=== PATIENT | male | born 1935 | race Caucasian/White ===

== ENCOUNTER 2020-09-22 11:07 | Emergency (ER) | payer OTHER, MEDICARE ==
[~2020-09-22] VITALS: Ht 172.7 cm; Wt 87.3 kg
[2020-09-22] MEDS ORDERED: methylnaltrexone br 12mg/0.6ml inj***SubQ only SQ ONE (14:20)
[2020-09-22] MEDS ORDERED: bisacodyl 5mg tablet.DR PO ONE (14:20)
--- NOTE | 2020-09-22 15:48 | NUR ---
Note lorraine in EDM - 09/22/20 at 1846 by MONIQUE spoke with Dr. Behl. YOUNGER for duoNeb q6 hr PRN as needed.
[2020-09-22] MEDS ORDERED: albuterol 2.5 MG/3 ML nebule NEB PRN (15:50)
--- NOTE | 2020-09-22 16:40 | NUR ---
All medication given treated awaiting resultes. aware.
[2020-09-22 18:00] VITALS: BP 121/61
--- NOTE | 2020-09-22 18:46 | NUR ---
DIGITAL DISIMPACTION IN PROGRESS NOW WITH DR. WEST.
[2020-09-22] MEDS ORDERED: MAGN296S68 PO (19:01)
== END 2020-09-22 19:26 | disposition home or self-care (01) ==
LOC: ER 11:08
DX: K59.00 Constipation, unspecified (principal); R10.30 Lower abdominal pain, unspecified
CPT/HCPCS: 96372; 99284; J2212; 99283

== ENCOUNTER 2021-05-17 14:35 | Inpatient (IN) | payer OTHER, MEDICARE ==
[~2021-05-17] VITALS: Ht 177.8 cm; Wt 80.9 kg
[~2021-05-17 14:35] MED LIST: MAGN296S68 PO
[2021-05-17 19:13] LABS: HEMOGLOBIN 14.6 g/dl (14.0-17.9); MEAN CORPUSCULAR HEMOGLOBIN 31.9 PG (27.0-31.0); RED CELL DISTRIBUTION WIDTH 13.9 % (11.5-14.5)
[2021-05-17 19:14] LABS: BASOPHILS # (AUTO) 0.1 X10'3 (0-0.2); BASOPHILS % (AUTO) 0.3 % (0-1); EOSINOPHILS % (AUTO) 0 % (0-6); HEMATOCRIT 43.6 % (42.0-52.0); LYMPHOCYTES # (AUTO) 0.6 X10'3 (1.1-4.8); LYMPHOCYTES % (AUTO) 2.8 % (21-51); MEAN CORPUSCULAR HGB CONC 33.5 g/dL (33.0-36.5); MEAN CORPUSCULAR VOLUME 95.2 FL (78-98); MEAN PLATELET VOLUME 7.3 FL (7.4-10.4); MONOCYTES # (AUTO) 1.1 X10'3 (0-0.9); MONOCYTES % (AUTO) 5.4 % (2-12); NEUTROPHILS # (AUTO) 19.3 X10'3 (1.8-7.7); NEUTROPHILS % (AUTO) 91.5 % (42-75); PLATELET COUNT 212 X10'3 (140-440); RED BLOOD COUNT 4.58 X10'6 (4.70-6.10); WHITE BLOOD COUNT 21.1 X10'3 (4.5-11.0)
[2021-05-17 19:19] LABS: ALANINE AMINOTRANSFERASE 43 U/L (12-78); ALBUMIN 4.1 G/DL (3.4-5.0); ALBUMIN/GLOBULIN RATIO 1.1 (1.1-1.5); ALKALINE PHOSPHATASE 102 IU/L (46-116); ANION GAP 8 (8-16); ASPARTATE AMINO TRANSFERASE 20 U/L (10-37); BILIRUBIN,TOTAL 0.6 MG/DL (0.1-1.0); BLOOD UREA NITROGEN 20 MG/DL (7-18); BUN/CREATININE RATIO 17.5 (5.4-32.0); CALCIUM 9.6 MG/DL (8.5-10.1); CHLORIDE 102 MMOL/L (99-107); CREATININE 1.14 MG/DL (0.60-1.10); GLUCOSE 149 MG/DL (70-104); POTASSIUM 4.7 MMOL/L (3.5-5.1); SODIUM 142 MMOL/L (135-145); TOTAL CARBON DIOXIDE 32.5 MMOL/L (24-32); TOTAL PROTEIN 7.9 G/DL (6.4-8.2); eGFR 61 ML/MIN
[2021-05-17] MEDS ORDERED: CefTRIAXone 2gm/D5W 50ml BAG 50 ML IV ONE (19:45)
[2021-05-17] MEDS ORDERED: normal saline 1000ML IV soln IV ONE (19:45)
[2021-05-17 19:57] LABS: MAGNESIUM 2.1 MG/DL (1.5-2.4)
[2021-05-17 21:00] LABS: PLATELET ESTIMATE NORMAL; TOTAL CELLS COUNTED 100
[2021-05-17] MEDS ORDERED: temazepam 15mg capsule PO PRN (21:00)
[2021-05-17 21:27] LABS: CLARITY,URINE SLIGHTLY CLOUDY (Clear); COLOR,URINE YELLOW (Yellow); GLUCOSE, URINE NEGATIVE (Neg); KETONES,URINE 15 mg/dl (Neg); LEUKOCYTE ESTERASE ,URINE TRACE (Neg); NITRITES, URINE POSITIVE (Neg); OCCULT BLOOD,URINE NEGATIVE (Neg); PH,URINE 7.5 (4.8-8.0); PROTEIN,URINE TRACE mg/dl (Neg); UROBILINOGEN,URINE 0.2 E.U/dL (0.2-1.0)
[2021-05-17 21:36] LABS: UA COLLECTION TYPE NON-SPECIFIED
[2021-05-17 21:37] LABS: BACTERIA,URINE 3+ /HPF (Neg); RBC,URINE 0-2 /HPF (0-2); WBC,URINE 20-30 /HPF (0-4)
[2021-05-17 21:38] LABS: SQUAMOUS EPITHELIAL CELL,UR FEW /LPF (FEW)
[2021-05-17 21:42] LABS: CAL OXALATE CRYSTALS FEW /HPF (NEGATIVE)
[2021-05-17] MEDS ORDERED: HYDR-3965 PO (23:35)
[2021-05-17] MEDS ORDERED: diphenhydrAMINE 25mg capsule PO PRN (23:55)
[2021-05-17] MEDS ORDERED: morphine 2 MG/ML inj. syringe IV PRN (23:55)
[2021-05-17] MEDS ORDERED: acetaminophen 325mg tablet PO PRN (23:55)
[2021-05-17] MEDS ORDERED: ondansetron 4mg rapidly disintigrating tab PO PRN (23:55)
[2021-05-17] MEDS ORDERED: bisacodyl 10mg suppository rectal RC PRN (23:55)
[2021-05-17] MEDS ORDERED: magnesium hydroxide 30ml (MOM) UD suspension PO PRN (23:55)
[2021-05-17] MEDS ORDERED: ondansetron/PF 4mg/2ml inj IV PRN (23:55)
[2021-05-17] MEDS ORDERED: mag hydrox/Alum hydrox/simeth 30ml oral suspension PO PRN (23:55)
[2021-05-17] MEDS ORDERED: diphenhydrAMINE 50 mg/ml inj IV PRN (23:55)
[2021-05-18] VITALS (11 sets, daily range): BP systolic 68–120; BP diastolic 37–70
[2021-05-18] MEDS ORDERED: nitroGLYCERIN 0.4mg SUBLingual tab SL PRN
[2021-05-18] MEDS ORDERED: aminophylline 250mg/10ml inj. IV PRN
[2021-05-18] MEDS ORDERED: metoprolol tartrate 1mg/ml inj IV PRN
[2021-05-18] MEDS ORDERED: regadenoson 0.4mg/5ml syringe IV PRN
--- NOTE | 2021-05-18 00:18 | NUR ---
Received from OR via BED, accompanied by Anesthesiologist PHILLIP and report given by ANESTHESIA.RT PRESENT FOR SET UP OF VENTILATOR. ET TUBE MEASURES 26 AT LIPS. VSS. PIV IN L. WRIST 20 G. CDI SALINE LOCKED. PIV R. FA 18 G CDI WITH LR INFUSING-WHICH WAS DC AND SALINE LOCKED. R. ART LINE CDI, SECURE AND ZEROED. TRIPLE LUMEN CVP AT R. NECK CDI. FC DRAINING TO GRAVITY APPROX 500 ML DARK YELLOW URINE NOTED. L. ESOPHAGEAL PLUG AT UPPER L. CLAVICLE WITH OUTPUT BAG ATTACHED. NO CONTENTS ON ARRIVAL. RED MONTE TUBE FOR FEEDING IN L. ABD. 19 FR. YANET DRAIN IN ABD. WITH MINIMAL DRAINAGE NOTED. CDI. DUAL LUMEN CHEST TUBE FUNCTIONING APPROPRIATELY ORDERED. APPROX. 200 ML DRAINAGE NOTED. DRESSING ON R. LATERAL ABD CDI. BG 208. SEDATION SET UP AND ADMINISTERED PER ORDERS. RESTRAINTS APPLIED. PALPABLE PULSES NOTED. SCDS IN PLACE. RN PRESENT FOR REPORT. ABG'S ABG'S AND LABS DRAWN. CXR DONE IN OR PRIOR TO TRANSFER. PT. APPEARS TO BE COMFORTABLY SEDATED. Addendum: 05/19/21 at 0739 by Jacquelin Galvan RN Amended: Links added.
[2021-05-18] MEDS: heparin, porcine 5000 units/ml vial SQ SCH ×2 (00:39→08:04)
[2021-05-18] MEDS: normal saline 1000ml 1,000 ML IV SCH ×2 (00:40→09:55)
[2021-05-18] MEDS: HYDROcodone/acetaminophen 10/325mg tab PO PRN (00:40)
--- NOTE | 2021-05-18 00:58 | NUR ---
DC CRITERIA MET FOR TRANSFER TO ICU. RN PRESENT FOR REPORTS AND CARE. PT. RESTING COMFORTABLY, APPROPRIATELY SEDATED AND RESTRAINED. VSS. ALL LINES AND DRAINS FUNCTIONING ORDERED. ALL QUESTIONS ANSWERED FOR RN. ALL POST SURGICAL INITIAL ORDERS COMPLETED, CXR, ABG, LABS. SEE RT NOTES FOR VENT SETTINGS. Addendum: 05/19/21 at 0743 by Jacquelin Galvan RN Amended: Links added.
[2021-05-18 01:05] LABS: BASOPHILS % (AUTO) 0.2 % (0-1); EOSINOPHILS % (AUTO) 0 % (0-6); HEMATOCRIT 39.1 % (42.0-52.0); HEMOGLOBIN 13.2 g/dl (14.0-17.9); LYMPHOCYTES # (AUTO) 0.9 X10'3 (1.1-4.8); LYMPHOCYTES % (AUTO) 4.4 % (21-51); MEAN CORPUSCULAR HEMOGLOBIN 31.7 PG (27.0-31.0); MEAN CORPUSCULAR HGB CONC 33.8 g/dL (33.0-36.5); MEAN CORPUSCULAR VOLUME 93.6 FL (78-98); MEAN PLATELET VOLUME 7.5 FL (7.4-10.4); MONOCYTES # (AUTO) 0.8 X10'3 (0-0.9); MONOCYTES % (AUTO) 4.2 % (2-12); NEUTROPHILS # (AUTO) 18.3 X10'3 (1.8-7.7); NEUTROPHILS % (AUTO) 91.2 % (42-75); PLATELET COUNT 198 X10'3 (140-440); RED BLOOD COUNT 4.17 X10'6 (4.70-6.10); RED CELL DISTRIBUTION WIDTH 13.7 % (11.5-14.5); WHITE BLOOD COUNT 20.1 X10'3 (4.5-11.0)
[2021-05-18 01:11] LABS: APTT 27 SECONDS (22-32); D-DIMER 3.28 MG/L FEU (0-0.50)
[2021-05-18 01:18] LABS: HEMOGLOBIN A1C 5.8 % (4.5-6.2)
[2021-05-18 01:21] LABS: ALANINE AMINOTRANSFERASE 26 U/L (12-78); ALBUMIN 3.3 G/DL (3.4-5.0); ALKALINE PHOSPHATASE 78 IU/L (46-116); ANION GAP 7 (8-16); ASPARTATE AMINO TRANSFERASE 20 U/L (10-37); BILIRUBIN,TOTAL 0.7 MG/DL (0.1-1.0); BLOOD UREA NITROGEN 19 MG/DL (7-18); BUN/CREATININE RATIO 19.4 (5.4-32.0); CALCIUM 8.9 MG/DL (8.5-10.1); CHLORIDE 105 MMOL/L (99-107); CREATININE 0.98 MG/DL (0.60-1.10); GLUCOSE 147 MG/DL (70-104); POTASSIUM 4.2 MMOL/L (3.5-5.1); SODIUM 141 MMOL/L (135-145); TOTAL CARBON DIOXIDE 28.8 MMOL/L (24-32); TOTAL PROTEIN 6.6 G/DL (6.4-8.2); eGFR 73 ML/MIN
[2021-05-18 01:30] LABS: CHOL/HDL RATIO 1.3 (0.00-4.99); CHOLESTEROL 98 MG/DL (0-200); HDL CHOLESTEROL 74 MG/DL (35-60); LDL CHOLESTEROL 18 MG/DL (50-100); MAGNESIUM 2.1 MG/DL (1.5-2.4); TRIGLYCERIDES 35 MG/DL (20-135)
[2021-05-18] MEDS ORDERED: ROPI1TAB6 PO (02:07)
[2021-05-18] MEDS ORDERED: CYCL-394 PO (02:08)
[2021-05-18] MEDS ORDERED: GABA300C PO (02:10)
[2021-05-18] MEDS ORDERED: GABA-530 PO (02:10)
[2021-05-18] MEDS ORDERED: pantoprazole 40mg Tablet.DR PO SCH (07:30)
[2021-05-18] MEDS: CefTRIAXone/D5W-Rocephin 1gm 50 ML IV SCH (08:00)
[2021-05-18] MEDS ORDERED: aspirin 81mg, enteric-coated 1 TAB TABLET.DR PO SCH (08:00)
[2021-05-18] MEDS: docusate sod 100mg capsule PO SCH ×2 (08:00→20:00)
[2021-05-18] MEDS: nitroGLYCERIN 0.1mg/hour patch TD SCH (08:00)
[2021-05-18] MEDS: metoprolol succinate 25mg (24-HOUR) SR. Tablet PO SCH (08:05)
[2021-05-18] MEDS: atorvastatin 20mg tablet PO SCH (08:05)
[2021-05-18] MEDS: lisinopril 5mg tablet PO SCH (08:06)
[2021-05-18] MEDS ORDERED: magnesium 4gm in 100ml NS 100 ML IV PRN (09:05)
[2021-05-18] MEDS ORDERED: magnesium Cl slow-release 64mg tablet PO PRN (09:05)
[2021-05-18] MEDS ORDERED: potassium Cl 40MEQ/1/2NS 520ml 520 ML IV PRN (09:05)
[2021-05-18] MEDS ORDERED: potassium Cl 20 mEq SR tablet PO PRN ×2 (09:05)
[2021-05-18] MEDS ORDERED: iohexol 350MG/ML 100ml bottle IV ONE (10:18)
--- NOTE | 2021-05-18 12:51 | NUR ---
Page Sent promotional table spacer PAGER ID: [phone] MESSAGE: DR. Juanjose Ramsey [id number] [facility] need you communicate with them , for report critical findings. MARCELINO Anderson
[2021-05-18] MEDS: ROPINIRole 1mg tablet PO SCH ×2 (14:00→20:00)
--- NOTE | 2021-05-18 14:21 | NUR ---
Initial: Pt admit DX sepsis, UTI, CP rule out ACS, acute hypoxia, and hypovolemia per MD note. PT s/p CTA chest/abdomen/pelvis found to have upper medial gastric fundal wall perforation leaking into the lower paraesophageal mediastinum and immediate medial perigastric soft tissues per imaging report. Pt PO 100% clear liquid first meal at breakfast though likely NPO pending surgery holding room note at this time in EMR. LBM 05/15 w/ hx constipation and routine colace active in EMR. Will continue to monitor for further information and additional nutrition intervention needs this admit. Rec: 1. once PO; advance diet as medically indicated to regular. IF GI surgery advance to low-residue diet as medically indicated 2. monitor for ONS needs pending PO/diet advancement 3. routine bowel care; hx constipation 4. scaled wt this admit; subsequent weekly wts Addendum: 05/18/21 at [address] Amended: Links added.
--- NOTE | 2021-05-18 14:30 | NUR ---
Patient was report to Recovery. I was spoke with MARCELINO Plaza
--- NOTE | 2021-05-18 15:33 | NUR ---
Patient is transferred to operation room.
[2021-05-18] MEDS ORDERED: fentaNYL /PF 50mcg/ml 5ml ampule ONE ×2 (15:49→18:54)
[2021-05-18] MEDS ORDERED: midazolam 1 mg/ML 2ml injection ONE (15:49)
[2021-05-18] MEDS: cyclobenzaprine 10mg tablet PO SCH (16:00)
[2021-05-18] MEDS ORDERED: propofol inj 20 ML IV ONE (16:08)
[2021-05-18] MEDS ORDERED: LIDOcaine 2% (20mg/ml) 5ml vial ONE (16:08)
[2021-05-18] MEDS ORDERED: rocuronium 10mg/ml inj IV ONE ×2 (16:08→18:33)
[2021-05-18] MEDS ORDERED: BUPIVAcaine/PF 2.5 mg/ml (0.25%) 30ml vial ONE (16:23)
[2021-05-18] MEDS ORDERED: BUPIVACAINE liposomal/PF 13.3 MG/ML vial IM ONE (16:23)
[2021-05-18] MEDS ORDERED: cefazolin/dext.iso 2gm/50ml 50 ML IV ONE (17:00)
[2021-05-18] MEDS ORDERED: ringers solution, lacted 1,000 ML IV SCH (17:50)
[2021-05-18] MEDS ORDERED: morphine 4 MG/ML inj SYRINge IV PRN (17:50)
[2021-05-18] MEDS ORDERED: morphine 2 MG/ML inj. syringe IV PRN (17:50)
[2021-05-18] MEDS ORDERED: proCHLORperazine 10 MG/2 ml inj IV PRN (17:50)
[2021-05-18] MEDS ORDERED: meperidine/PF 25mg/ml syringe IV PRN ×3 (17:50)
[2021-05-18] MEDS ORDERED: ondansetron/PF 4mg/2ml inj IV PRN (17:50)
[2021-05-18 18:23] LABS: ABG BASE EXCESS 1.1 mmol/L (-2.0-2.0); ABG HCO3 23.3 mmol/L (22.0-26.0); ABG OXYGEN SATURATION 98.7 % (94-97); ABG PCO2 (T) 30.3 mmHg (35.0-48.0); ABG PO2 (T) 141.3 mmHg (75.0-100.0); FCOHb 0.7 % (0.0-3.9); FMetHb 0.3 % (0.0-1.5); FO2Hb 97.7 % (94-97); TOTAL HEMOGLOBIN 13.7 G/dl (14.0-18.0)
[2021-05-18] MEDS ORDERED: CISatracurium **Bolus** 2 mg/ml inj IV ONE (19:20)
[2021-05-18] MEDS: K and/or MAG REPLACEMENT MC SCH (20:00)
[2021-05-18] MEDS: lactobacillus rhamnosus 10,000 MMU CELLS/CAPSULE PO SCH (20:00)
[2021-05-18] MEDS: gabapentin 300mg capsule PO SCH (21:00)
[2021-05-18] MEDS ORDERED: piperacillin/tazo 3.375gm/50ml 50 ML IV ONE (21:25)
[2021-05-18] MEDS ORDERED: vancomycin/NS 1 GM ADD-VANTAGE 250 ML X 1 DOSE IV ONE (21:25)
[2021-05-18] MEDS: propofol 1000mg/100ml bottle 100 ML IV SCH (21:30)
[2021-05-18] MEDS ORDERED: ceFAZolin 1000mg inj ONE (21:59)
[2021-05-18] MEDS ORDERED: albuterol 2.5 MG/3 ML nebule NEB PRN (22:00)
[2021-05-18] MEDS ORDERED: albumin (Human) 5% 250ml 250 ML IV ONE (22:00)
[2021-05-19] VITALS (44 sets, daily range): BP systolic 67–172; BP diastolic 31–90
[2021-05-19] MEDS: FENTANYL-0.9 % NACL/PF 100 ML IV PRN ×4 (00:31→21:25)
[2021-05-19] MEDS: midazolam 100mg in NS 100ml 100 ML IV PRN ×2 (00:32→09:39)
[2021-05-19 00:47] LABS: ABG BASE EXCESS -4.3 mmol/L (-2.0-2.0); ABG HCO3 19.9 mmol/L (22.0-26.0); ABG OXYGEN SATURATION 99.3 % (94-97); ABG PCO2 (T) 35.1 mmHg (35.0-48.0); ABG PO2 (T) 217.4 mmHg (75.0-100.0); FCOHb 0.3 % (0.0-3.9); FMetHb 0.3 % (0.0-1.5); FO2Hb 98.7 % (94-97); PATIENT TEMPERATURE 37.9; PEEP 5 cm H2O; RESPIRATORY RATE 12 b/min; TIDAL VOLUME 650 mL
[2021-05-19] MEDS: normal saline 1000ml 1,000 ML IV SCH ×3 (01:00→14:54)
[2021-05-19] MEDS: ROPINIRole 1mg tablet PO SCH ×4 (01:08→19:20)
[2021-05-19 01:15] LABS: BASOPHILS % (AUTO) 0.3 % (0-1); EOSINOPHILS % (AUTO) 0 % (0-6); HEMATOCRIT 36.8 % (42.0-52.0); HEMOGLOBIN 12.5 g/dl (14.0-17.9); LYMPHOCYTES % (AUTO) 6.6 % (21-51); MEAN CORPUSCULAR HEMOGLOBIN 32.3 PG (27.0-31.0); MEAN CORPUSCULAR HGB CONC 33.9 g/dL (33.0-36.5); MEAN CORPUSCULAR VOLUME 95.3 FL (78-98); MEAN PLATELET VOLUME 7.5 FL (7.4-10.4); MONOCYTES # (AUTO) 0.7 X10'3 (0-0.9); MONOCYTES % (AUTO) 4.3 % (2-12); NEUTROPHILS # (AUTO) 13.6 X10'3 (1.8-7.7); NEUTROPHILS % (AUTO) 88.8 % (42-75); PLATELET COUNT 208 X10'3 (140-440); RED BLOOD COUNT 3.87 X10'6 (4.70-6.10); RED CELL DISTRIBUTION WIDTH 14.2 % (11.5-14.5); WHITE BLOOD COUNT 15.3 X10'3 (4.5-11.0)
[2021-05-19 01:26] LABS: ALANINE AMINOTRANSFERASE 77 U/L (12-78); ALBUMIN 2.5 G/DL (3.4-5.0); ALBUMIN/GLOBULIN RATIO 0.9 (1.1-1.5); ALKALINE PHOSPHATASE 53 IU/L (46-116); ANION GAP 9 (8-16); ASPARTATE AMINO TRANSFERASE 102 U/L (10-37); BILIRUBIN,TOTAL 0.8 MG/DL (0.1-1.0); BLOOD UREA NITROGEN 19 MG/DL (7-18); BUN/CREATININE RATIO 17.1 (5.4-32.0); CALCIUM 7.5 MG/DL (8.5-10.1); CHLORIDE 107 MMOL/L (99-107); CREATININE 1.11 MG/DL (0.60-1.10); GLUCOSE 202 MG/DL (70-104); MAGNESIUM 1.8 MG/DL (1.5-2.4); PHOSPHORUS 3.1 MG/DL (2.3-4.5); POTASSIUM 4.7 MMOL/L (3.5-5.1); SODIUM 139 MMOL/L (135-145); TOTAL CARBON DIOXIDE 23.5 MMOL/L (24-32); TOTAL PROTEIN 5.3 G/DL (6.4-8.2); eGFR 63 ML/MIN
[2021-05-19] MEDS ORDERED: acetaminophen 1,000mg/100ml IV 100 ML IV ONE (02:33)
[2021-05-19] MEDS: propofol 1000mg/100ml bottle 100 ML IV SCH (03:36)
[2021-05-19] MEDS: NORepinephrine 8mg/ 250ml NS 250 ML IV SCH ×3 (04:10→22:51)
[2021-05-19 04:43] LABS: ABG BASE EXCESS -3.2 mmol/L (-2.0-2.0); ABG HCO3 20.9 mmol/L (22.0-26.0); ABG OXYGEN SATURATION 98.4 % (94-97); ABG PCO2 (T) 36.1 mmHg (35.0-48.0); FCOHb 0.4 % (0.0-3.9); FMetHb 0.3 % (0.0-1.5); FO2Hb 97.7 % (94-97); PATIENT TEMPERATURE 38.1; PEEP 5 cm H2O; RESPIRATORY RATE 16 b/min; TIDAL VOLUME 550 mL; TOTAL HEMOGLOBIN 13.2 G/dl (14.0-18.0)
--- NOTE | 2021-05-19 05:19 | NUR ---
This is a 85 year old male, new admit 05/18/2021, full code, NDA, with history of coronary artery disease, associated with stent placement 2001, chronic pain syndrome on opioids, presented today to emergency department chief complaint chest pain; in addition patient presents to the ER via EMS for complaints of chest pain that began this morning after eating lunch at approximately 1130. Patient's spouse states that he started hiccuping after eating and then he began to experience sharp chest pain. He notes that the pain has been intermittent since that time. Patient states that he is not currently experiencing chest pain but he experiencing 5/10 pain when he takes a deep breath. He took an antacid but he was unable to swallow it and went to the bathroom to throw it up. After that, he drank sparkling water in hopes that it would help his pain but it did not. Patient has also experienced mild upper abdominal pain.Patient denies hematemesis, nausea, diarrhea, chills, shortness of breath, heart palpitations, and fever. Patient denies any other associated symptoms at this time. Patient denies any other alleviating or exacerbating factors. No additional complaints or concerns. Currently, bilateral upper extremity soft wrist restraints in use. Orders and documentation in accordance with facility policies and procedures. Pt is s/p esophageal perforation, sedated on propofol at 9.98 mcgs, Fentanyl 100 mcgs, Pt will open eyes and nod head. Pt was febrile 38.6 IV Tylenol was given temp came down to 37.9 HR 100-110 SR/ST BP 113/76 supported with Levophed at .04 mcgs.( started after Propofol started). Weak pulses, generalized trace edema, Chest tube drained 430 ml's blood, BLAZE drain drained 150 bilious fluid. J-Tube clamped. all IVF infusing via RIJ TLC, all ports f/p, good blood return. Right wrist A-Line f/p positional. presence of 2 rt arm peripheral lines f/p as well. Intubated with 8.0 ETT 25 cm, Vent PRVC, rate 12, TV 550, FIO2 40%, PEEP 5. Tolerating settings well. Breath sounds, clear, diminished, equal, symmetrical, non labored. Pulse OX 95-100% Hypoactive bowel sounds, mildly distended, presence of J-Tube and BLAZE drain. Midline incision dressing CDI. Pt also has left upper chest wall mucus plug to drainage bag. Pt on Protonix for GI prophylaxis. López draining clear yellow urine. López drained 900 ml's. Review of skin abdomen midline incision, left upper chest wall mucus plug, Right double chest tube, Abdominal BLAZE drain, skin is fragile and friable. ABX, Diflucan, Vancomycin, Zosyn, Cefazolin and Rocephin. Pt remains safe, continue to monitor.
[2021-05-19] MEDS: K and/or MAG REPLACEMENT MC SCH ×2 (08:00→19:19)
[2021-05-19] MEDS: nitroGLYCERIN 0.1mg/hour patch TD SCH (08:00)
[2021-05-19] MEDS: metoprolol succinate 25mg (24-HOUR) SR. Tablet PO SCH (08:00)
[2021-05-19] MEDS: lisinopril 5mg tablet PO SCH (08:00)
[2021-05-19] MEDS: atorvastatin 20mg tablet PO SCH (08:00)
[2021-05-19] MEDS: lactobacillus rhamnosus 10,000 MMU CELLS/CAPSULE PO SCH ×2 (08:00→19:19)
[2021-05-19] MEDS: cyclobenzaprine 10mg tablet PO SCH ×3 (08:00→14:55)
[2021-05-19] MEDS: docusate sod 100mg capsule PO SCH ×2 (08:00→19:19)
[2021-05-19] MEDS: albumin (human) 25% 100 ML IV solution IV SCH ×3 (08:36→19:29)
[2021-05-19] MEDS: micafungin inj 100 MG in normal saline 100ml IV soln 100 ML IV SCH (08:38)
[2021-05-19] MEDS ORDERED: midazolam 1 mg/ML 2ml injection IV ONE (09:25)
[2021-05-19] MEDS: pantoprazole IV 40 MG in dextrose 5%-water 100 ML IV SCH (09:26)
[2021-05-19] MEDS: CefTRIAXone/D5W-Rocephin 1gm 50 ML IV SCH (10:26)
[2021-05-19] MEDS ORDERED: DOPamine 400mg/D5W 250ml 250 ML IV PRN (11:25)
--- NOTE | 2021-05-19 12:08 | NUR ---
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 Pt to remain NPO at this time possibly returning to OR per RN. TF recs below in case to start. LBM 05/15. Will continue to monitor for nutrition support needs on the vent post-op. Rec: 1. Consider J-tube feeds as medically indicated post-op. IF TF; Vital AF at 75ml/hr goal would provide 1800ml volume/day, 2160 kcals, 1458ml water, and 135g protein. 2. IF TF; additional free water per MD post-op monitor serum Na 139mmol/L this AM on NS 3. monitor for scaled wt and nutrition support recs adjustment needs 4. routine bowel care per MD post-op 5. scaled wt this admit; subsequent weekly wts Addendum: 05/19/21 at [address] Amended: Links added.
[2021-05-19] MEDS ORDERED: albumin (Human) 5% 250ml 250 ML IV ONE (13:45)
[2021-05-19] MEDS: dextrose 5%-lactated ringers 1,000 ML IV SCH ×2 (13:57→22:51)
[2021-05-19] MEDS: gabapentin 300mg capsule PO SCH (19:20)
[2021-05-19] MEDS: morphine 2 MG/ML inj. syringe IV PRN (21:13)
[2021-05-20] VITALS (24 sets, daily range): BP systolic 96–170; BP diastolic 53–97
[2021-05-20] MEDS: normal saline 1000ml 1,000 ML IV SCH (00:17)
[2021-05-20] MEDS: ROPINIRole 1mg tablet PO SCH ×4 (01:38→19:33)
[2021-05-20] MEDS ORDERED: mineral oil/petrolatum ophthal oint EACHEYE SCH ×2 (02:00→08:00)
[2021-05-20] MEDS: albumin (human) 25% 100 ML IV solution IV SCH ×4 (02:24→19:33)
[2021-05-20 02:37] LABS: BASOPHILS # (AUTO) 0.1 X10'3 (0-0.2); BASOPHILS % (AUTO) 0.5 % (0-1); EOSINOPHILS # (AUTO) 0.1 X10'3 (0-0.9); EOSINOPHILS % (AUTO) 0.4 % (0-6); HEMATOCRIT 31.3 % (42.0-52.0); HEMOGLOBIN 10.6 g/dl (14.0-17.9); LYMPHOCYTES # (AUTO) 1.2 X10'3 (1.1-4.8); LYMPHOCYTES % (AUTO) 9.4 % (21-51); MEAN CORPUSCULAR HEMOGLOBIN 32.3 PG (27.0-31.0); MEAN CORPUSCULAR VOLUME 94.9 FL (78-98); MEAN PLATELET VOLUME 7.6 FL (7.4-10.4); MONOCYTES # (AUTO) 0.9 X10'3 (0-0.9); MONOCYTES % (AUTO) 7.7 % (2-12); PLATELET COUNT 192 X10'3 (140-440); RED CELL DISTRIBUTION WIDTH 14.2 % (11.5-14.5); WHITE BLOOD COUNT 12.3 X10'3 (4.5-11.0)
[2021-05-20 02:52] LABS: ALANINE AMINOTRANSFERASE 41 U/L (12-78); ALBUMIN/GLOBULIN RATIO 1.1 (1.1-1.5); ALKALINE PHOSPHATASE 43 IU/L (46-116); ANION GAP 11 (8-16); ASPARTATE AMINO TRANSFERASE 34 U/L (10-37); BILIRUBIN,TOTAL 0.6 MG/DL (0.1-1.0); BLOOD UREA NITROGEN 19 MG/DL (7-18); BUN/CREATININE RATIO 18.3 (5.4-32.0); CALCIUM 7.9 MG/DL (8.5-10.1); CHLORIDE 111 MMOL/L (99-107); CREATININE 1.04 MG/DL (0.60-1.10); GLUCOSE 191 MG/DL (70-104); MAGNESIUM 2.1 MG/DL (1.5-2.4); PHOSPHORUS 1.4 MG/DL (2.3-4.5); SODIUM 146 MMOL/L (135-145); TOTAL CARBON DIOXIDE 24.2 MMOL/L (24-32); TOTAL PROTEIN 5.8 G/DL (6.4-8.2); eGFR 68 ML/MIN
[2021-05-20 03:27] LABS: ABG BASE EXCESS 0.2 mmol/L (-2.0-2.0); ABG HCO3 23.8 mmol/L (22.0-26.0); ABG OXYGEN SATURATION 97.1 % (94-97); ABG PCO2 (T) 36.3 mmHg (35.0-48.0); ABG PO2 (T) 98.1 mmHg (75.0-100.0); FCOHb 0.3 % (0.0-3.9); FMetHb 0.1 % (0.0-1.5); FO2Hb 96.7 % (94-97); PATIENT TEMPERATURE 37.9; PEEP 5 cm H2O; RESPIRATORY RATE 16 b/min; TIDAL VOLUME 550 mL; TOTAL HEMOGLOBIN 11.1 G/dl (14.0-18.0)
[2021-05-20] MEDS: morphine 2 MG/ML inj. syringe IV PRN (03:37)
[2021-05-20] MEDS: FENTANYL-0.9 % NACL/PF 100 ML IV PRN ×4 (03:37→23:42)
[2021-05-20] MEDS ORDERED: ringers solution, lacted 1,000 ML IV ONE (04:35)
[2021-05-20] MEDS ORDERED: amiodarone/D5 360MG/200ML BAG 200 ML IV SCH (04:35)
[2021-05-20] MEDS ORDERED: amiodarone 150mg/dext, iso-os 100 ML IV ONE (04:35)
[2021-05-20] MEDS: metoprolol succinate 25mg (24-HOUR) SR. Tablet PO SCH (08:00)
[2021-05-20] MEDS: K and/or MAG REPLACEMENT MC SCH ×2 (08:00→19:36)
[2021-05-20] MEDS ORDERED: docusate sodium 100mg/10ml UD cup PO ONE (08:35)
[2021-05-20] MEDS: pantoprazole IV 40 MG in dextrose 5%-water 100 ML IV SCH (08:39)
[2021-05-20] MEDS: CefTRIAXone/D5W-Rocephin 1gm 50 ML IV SCH (08:39)
[2021-05-20] MEDS: lactobacillus rhamnosus 10,000 MMU CELLS/CAPSULE PO SCH (08:39)
[2021-05-20] MEDS: atorvastatin 20mg tablet PO SCH (08:39)
[2021-05-20] MEDS: micafungin inj 100 MG in normal saline 100ml IV soln 100 ML IV SCH (08:39)
[2021-05-20] MEDS: lisinopril 5mg tablet PO SCH (08:40)
[2021-05-20] MEDS: nitroGLYCERIN 0.1mg/hour patch TD SCH ×3 (08:40→20:50)
[2021-05-20] MEDS: cyclobenzaprine 10mg tablet PO SCH ×2 (08:40)
[2021-05-20] MEDS: NORepinephrine 8mg/ 250ml NS 250 ML IV SCH ×2 (08:45→18:22)
[2021-05-20] MEDS: dextrose 5%-lactated ringers 1,000 ML IV SCH ×2 (09:40→15:58)
[2021-05-20] MEDS: midazolam 100mg in NS 100ml 100 ML IV PRN ×2 (09:53→19:50)
[2021-05-20] MEDS: piperacillin/tazo 4.5gm/100ml 100 ML IV SCH ×3 (11:35→23:45)
[2021-05-20] MEDS: propofol 1000mg/100ml bottle 100 ML IV SCH (14:14)
[2021-05-20] MEDS: mineral oil/petrolatum ophthal oint EACHEYE SCH ×2 (14:32→19:35)
[2021-05-20] MEDS: gabapentin 300mg capsule PO SCH (19:34)
[2021-05-20] MEDS: docusate sodium 100mg/10ml UD cup PO SCH (19:34)
[2021-05-21] VITALS (24 sets, daily range): BP systolic 86–155; BP diastolic 44–88
[2021-05-21] MEDS: mineral oil/petrolatum ophthal oint EACHEYE SCH ×4 (02:03→20:09)
[2021-05-21] MEDS: albumin (human) 25% 100 ML IV solution IV SCH ×4 (02:04→20:09)
[2021-05-21] MEDS: ROPINIRole 1mg tablet PO SCH ×4 (02:04→20:09)
[2021-05-21 03:44] LABS: ABG BASE EXCESS 0.9 mmol/L (-2.0-2.0); ABG HCO3 25.1 mmol/L (22.0-26.0); ABG OXYGEN SATURATION 92.9 % (94-97); ABG PCO2 (T) 39.5 mmHg (35.0-48.0); ABG PO2 (T) 66.9 mmHg (75.0-100.0); ALLEN'S TEST POSITIVE; FMetHb 0.3 % (0.0-1.5); FO2Hb 92.6 % (94-97); PATIENT TEMPERATURE 37.8; PEEP 5 cm H2O; RESPIRATORY RATE 14 b/min; TIDAL VOLUME 550 mL; TOTAL HEMOGLOBIN 9.6 G/dl (14.0-18.0)
[2021-05-21 05:00] LABS: ALANINE AMINOTRANSFERASE 30 U/L (12-78); ALBUMIN 3.4 G/DL (3.4-5.0); ALBUMIN/GLOBULIN RATIO 1.3 (1.1-1.5); ALKALINE PHOSPHATASE 39 IU/L (46-116); ANION GAP 8 (8-16); ASPARTATE AMINO TRANSFERASE 22 U/L (10-37); BILIRUBIN,TOTAL 0.9 MG/DL (0.1-1.0); BLOOD UREA NITROGEN 12 MG/DL (7-18); BUN/CREATININE RATIO 11.9 (5.4-32.0); CALCIUM 8.3 MG/DL (8.5-10.1); CHLORIDE 111 MMOL/L (99-107); CREATININE 1.01 MG/DL (0.60-1.10); GLUCOSE 143 MG/DL (70-104); MAGNESIUM 2.1 MG/DL (1.5-2.4); PHOSPHORUS 1.4 MG/DL (2.3-4.5); POTASSIUM 3.5 MMOL/L (3.5-5.1); SODIUM 147 MMOL/L (135-145); TOTAL CARBON DIOXIDE 28.1 MMOL/L (24-32); TOTAL PROTEIN 6.1 G/DL (6.4-8.2); eGFR 70 ML/MIN
[2021-05-21 05:02] LABS: BASOPHILS # (AUTO) 0.1 X10'3 (0-0.2); BASOPHILS % (AUTO) 0.8 % (0-1); EOSINOPHILS # (AUTO) 0.3 X10'3 (0-0.9); EOSINOPHILS % (AUTO) 2.6 % (0-6); HEMATOCRIT 25.3 % (42.0-52.0); HEMOGLOBIN 8.8 g/dl (14.0-17.9); LYMPHOCYTES # (AUTO) 1.1 X10'3 (1.1-4.8); MEAN CORPUSCULAR HEMOGLOBIN 33.1 PG (27.0-31.0); MEAN CORPUSCULAR HGB CONC 34.7 g/dL (33.0-36.5); MEAN CORPUSCULAR VOLUME 95.3 FL (78-98); MEAN PLATELET VOLUME 7.6 FL (7.4-10.4); MONOCYTES # (AUTO) 0.8 X10'3 (0-0.9); NEUTROPHILS # (AUTO) 7.1 X10'3 (1.8-7.7); NEUTROPHILS % (AUTO) 75.6 % (42-75); PLATELET COUNT 167 X10'3 (140-440); RED BLOOD COUNT 2.65 X10'6 (4.70-6.10); RED CELL DISTRIBUTION WIDTH 14.1 % (11.5-14.5); WHITE BLOOD COUNT 9.5 X10'3 (4.5-11.0)
[2021-05-21] MEDS: dextrose 5%-lactated ringers 1,000 ML IV SCH ×3 (05:42→23:19)
[2021-05-21] MEDS: FENTANYL-0.9 % NACL/PF 100 ML IV PRN (06:02)
[2021-05-21] MEDS: piperacillin/tazo 4.5gm/100ml 100 ML IV SCH ×2 (07:38→15:30)
[2021-05-21] MEDS: atorvastatin 20mg tablet PO SCH (07:43)
[2021-05-21] MEDS: nitroGLYCERIN 0.1mg/hour patch TD SCH (07:43)
[2021-05-21] MEDS: docusate sodium 100mg/10ml UD cup PO SCH ×2 (07:43→20:09)
[2021-05-21] MEDS: lisinopril 5mg tablet PO SCH (07:50)
[2021-05-21] MEDS: metoprolol succinate 25mg (24-HOUR) SR. Tablet PO SCH (07:50)
[2021-05-21] MEDS: K and/or MAG REPLACEMENT MC SCH ×2 (07:51→20:00)
[2021-05-21] MEDS: pantoprazole IV 40 MG in dextrose 5%-water 100 ML IV SCH (08:41)
[2021-05-21] MEDS: micafungin inj 100 MG in normal saline 100ml IV soln 100 ML IV SCH (08:42)
[2021-05-21] MEDS: acetaminophen 325mg tablet PO PRN ×2 (09:24→20:15)
[2021-05-21] MEDS: vancomycin/NS 1 GM ADD-VANTAGE 250 ML IV SCH ×2 (10:07→22:21)
--- NOTE | 2021-05-21 10:57 | NUR ---
TF consult: Pt remains intubated at this time. Okay to use J-tube for feeding for MD, see TF recommendations below. LBM 05/15, pt started on routine bowel care 05/20 and PRN bowel care also available. Will continue to follow closely and make recommendations as appropriate. Recommendations: 1. Continuous TF via J-tube using Vital AF at 75 ml/hr goal to provide 1800 ml volume/day, 2160 kcal, 1458 ml water, and 135 g protein. 2. Additional 120 mL water flush Q4H; monitor serum Na and need to adjust 3. Prealbumin q Saturday/ 4. Daily scaled weights 5. Monitor for scaled wt and adjust nutrition recs as appropriate 6. Routine bowel care per MD post-op Addendum: 05/21/21 at [address] Amended: Links added.
[2021-05-21] MEDS: NORepinephrine 8mg/ 250ml NS 250 ML IV SCH (14:44)
--- NOTE | 2021-05-21 15:49 | NUR ---
Dr. York aware that pt.'s sedation has been off since 0900 and pt. remains asleep with no gag or pain response. Pt. is not overbreathing vent RR of 14 at all.
--- NOTE | 2021-05-21 16:34 | NUR ---
Pauline SANTIAGO) sitting at bedside. Questions answered. Updated on plan of care.
--- NOTE | 2021-05-21 18:06 | NUR ---
Problems reprioritized. Patient report given, questions answered & plan of care reviewed with NOC RN.
--- NOTE | 2021-05-21 18:30 | NUR ---
Patient in room ICU 2043. I have received report from Ailyn BENSON and had the opportunity to ask questions and assume patient care.
[2021-05-21] MEDS: gabapentin 300mg capsule PO SCH (20:09)
[2021-05-22] VITALS (24 sets, daily range): BP systolic 91–152; BP diastolic 48–76
[2021-05-22] MEDS: piperacillin/tazo 4.5gm/100ml 100 ML IV SCH ×3 (00:12→16:06)
[2021-05-22] MEDS: ROPINIRole 1mg tablet PO SCH ×4 (03:13→19:58)
[2021-05-22] MEDS: albumin (human) 25% 100 ML IV solution IV SCH ×2 (03:15→08:08)
[2021-05-22] MEDS: mineral oil/petrolatum ophthal oint EACHEYE SCH ×4 (03:15→19:59)
[2021-05-22 03:45] LABS: ABG BASE EXCESS 1.1 mmol/L (-2.0-2.0); ABG HCO3 24.9 mmol/L (22.0-26.0); ABG OXYGEN SATURATION 93.8 % (94-97); ABG PCO2 (T) 36.7 mmHg (35.0-48.0); ABG PO2 (T) 70.8 mmHg (75.0-100.0); FCOHb 0.2 % (0.0-3.9); FMetHb 0.3 % (0.0-1.5); FO2Hb 93.3 % (94-97); PATIENT TEMPERATURE 37.5; PEEP 5 cm H2O; RESPIRATORY RATE 14 b/min; TIDAL VOLUME 550 mL; TOTAL HEMOGLOBIN 8.9 G/dl (14.0-18.0)
[2021-05-22 03:52] LABS: ALANINE AMINOTRANSFERASE 26 U/L (12-78); ALBUMIN 3.2 G/DL (3.4-5.0); ALBUMIN/GLOBULIN RATIO 1.2 (1.1-1.5); ALKALINE PHOSPHATASE 48 IU/L (46-116); ANION GAP 7 (8-16); ASPARTATE AMINO TRANSFERASE 23 U/L (10-37); BILIRUBIN,TOTAL 0.9 MG/DL (0.1-1.0); BLOOD UREA NITROGEN 12 MG/DL (7-18); BUN/CREATININE RATIO 12.2 (5.4-32.0); CALCIUM 8.3 MG/DL (8.5-10.1); CHLORIDE 110 MMOL/L (99-107); CREATININE 0.98 MG/DL (0.60-1.10); GLUCOSE 176 MG/DL (70-104); PHOSPHORUS 1.8 MG/DL (2.3-4.5); POTASSIUM 3.2 MMOL/L (3.5-5.1); PREALBUMIN 8.8 MG/DL (19-36); SODIUM 145 MMOL/L (135-145); TOTAL CARBON DIOXIDE 28.4 MMOL/L (24-32); TOTAL PROTEIN 5.8 G/DL (6.4-8.2); eGFR 73 ML/MIN
[2021-05-22 04:05] LABS: BASOPHILS % (AUTO) 0.5 % (0-1); EOSINOPHILS # (AUTO) 0.4 X10'3 (0-0.9); HEMATOCRIT 22.5 % (42.0-52.0); HEMOGLOBIN 7.7 g/dl (14.0-17.9); LYMPHOCYTES # (AUTO) 0.8 X10'3 (1.1-4.8); LYMPHOCYTES % (AUTO) 8.9 % (21-51); MEAN CORPUSCULAR HGB CONC 34.4 g/dL (33.0-36.5); MEAN CORPUSCULAR VOLUME 96.1 FL (78-98); MEAN PLATELET VOLUME 7.4 FL (7.4-10.4); MONOCYTES # (AUTO) 0.7 X10'3 (0-0.9); MONOCYTES % (AUTO) 7.8 % (2-12); NEUTROPHILS # (AUTO) 6.7 X10'3 (1.8-7.7); NEUTROPHILS % (AUTO) 77.8 % (42-75); PLATELET COUNT 159 X10'3 (140-440); RED BLOOD COUNT 2.34 X10'6 (4.70-6.10); RED CELL DISTRIBUTION WIDTH 13.8 % (11.5-14.5); WHITE BLOOD COUNT 8.7 X10'3 (4.5-11.0)
[2021-05-22] MEDS ORDERED: potassium CL 10mEq/100ml bag 100 ML IV PRN (04:50)
[2021-05-22] MEDS ORDERED: potassium Cl 20 mEq SR tablet PO PRN ×2 (04:50)
[2021-05-22] MEDS: potassium Cl 20mEq/100mL bag 100 ML IV PRN ×2 (05:01→06:46)
--- NOTE | 2021-05-22 06:17 | NUR ---
Problems reprioritized. Patient report given, questions answered & plan of care reviewed with Ailyn BENSON.
[2021-05-22] MEDS: nitroGLYCERIN 0.1mg/hour patch TD SCH (07:55)
[2021-05-22] MEDS: pantoprazole IV 40 MG in dextrose 5%-water 100 ML IV SCH (07:55)
[2021-05-22] MEDS: metoprolol succinate 25mg (24-HOUR) SR. Tablet PO SCH (08:00)
[2021-05-22] MEDS: lisinopril 5mg tablet PO SCH (08:00)
[2021-05-22] MEDS: docusate sodium 100mg/10ml UD cup PO SCH ×2 (08:09→19:59)
[2021-05-22] MEDS: vancomycin/NS 1 GM ADD-VANTAGE 250 ML IV SCH (08:09)
[2021-05-22] MEDS: atorvastatin 20mg tablet PO SCH (08:09)
[2021-05-22] MEDS: K and/or MAG REPLACEMENT MC SCH ×2 (08:10→19:59)
[2021-05-22] MEDS: dextrose 5%-lactated ringers 1,000 ML IV SCH (08:39)
[2021-05-22 09:45] LABS: ISTAT K 4.6 mmol/L (3.5-5.1)
[2021-05-22 09:46] LABS: ISTAT HGB 11.6 g/dl (14.0-18.0); ISTAT IONIZED CALCIUM 1.08 mmol/L (1.03-1.32)
--- NOTE | 2021-05-22 10:48 | NUR ---
Milk of Magnesium given for constipation. Will given enema or suppository if M.O.M not effective.
[2021-05-22] MEDS: POTASSIUM PHOSHATE inj. 30 MMOL in NORMAL SALINE 500ml IV.SOLN IV ONE ×2 (11:42→12:08)
--- NOTE | 2021-05-22 11:53 | NUR ---
f/u 05/22: Pt currently receiving D5LR at 100ml/hr providing 408kcals/day while also receiving TF and free water flushes. Per Raise Drill Operator, IVF to stop and free water flush to increase to 250ml Q4H Addendum: 05/22/21 at [address] Amended: Links added.
[2021-05-22] MEDS: NORepinephrine 8mg/ 250ml NS 250 ML IV SCH (12:40)
--- NOTE | 2021-05-22 13:58 | NUR ---
Dr. Arguelles stated during rounds to administer enema. RN gave the already ordered PRN Milk of Mag, Dulcolax suppository first and will give enema if no results.
--- NOTE | 2021-05-22 18:27 | NUR ---
Patient in room ICU 2043. I have received report from Ailyn BENSON and had the opportunity to ask questions and assume patient care.
[2021-05-22] MEDS: enoxaparin 40mg/0.4ml syringe SQ SCH (19:59)
[2021-05-22] MEDS: gabapentin 300mg capsule PO SCH (20:00)
[2021-05-22] MEDS ORDERED: VANCOMYCIN LEVEL IV ONE (21:30)
[2021-05-22] MEDS: acetaminophen 325mg tablet PO PRN (22:09)
[2021-05-23] VITALS (24 sets, daily range): BP systolic 114–152; BP diastolic 63–94
[2021-05-23] MEDS: piperacillin/tazo 4.5gm/100ml 100 ML IV SCH ×3 (00:24→15:01)
[2021-05-23] MEDS: mineral oil/petrolatum ophthal oint EACHEYE SCH ×4 (02:29→19:56)
[2021-05-23] MEDS: ROPINIRole 1mg tablet PO SCH ×4 (02:29→19:55)
[2021-05-23 02:39] LABS: ABG BASE EXCESS 0.5 mmol/L (-2.0-2.0); ABG HCO3 24.2 mmol/L (22.0-26.0); ABG PCO2 (T) 35.9 mmHg (35.0-48.0); ABG PO2 (T) 69.4 mmHg (75.0-100.0); FCOHb 0.3 % (0.0-3.9); FMetHb 0.2 % (0.0-1.5); FO2Hb 93.5 % (94-97); PATIENT TEMPERATURE 37.4; RESPIRATORY RATE 14 b/min; TIDAL VOLUME 550 mL; TOTAL HEMOGLOBIN 9.6 G/dl (14.0-18.0)
[2021-05-23 02:55] LABS: BASOPHILS % (AUTO) 0.3 % (0-1); EOSINOPHILS # (AUTO) 0.4 X10'3 (0-0.9); EOSINOPHILS % (AUTO) 4.4 % (0-6); HEMATOCRIT 22.1 % (42.0-52.0); HEMOGLOBIN 7.6 g/dl (14.0-17.9); LYMPHOCYTES # (AUTO) 0.9 X10'3 (1.1-4.8); MEAN CORPUSCULAR HEMOGLOBIN 32.5 PG (27.0-31.0); MEAN CORPUSCULAR HGB CONC 34.2 g/dL (33.0-36.5); MEAN CORPUSCULAR VOLUME 95.1 FL (78-98); MEAN PLATELET VOLUME 7.5 FL (7.4-10.4); MONOCYTES # (AUTO) 0.9 X10'3 (0-0.9); MONOCYTES % (AUTO) 9.6 % (2-12); NEUTROPHILS # (AUTO) 7.1 X10'3 (1.8-7.7); NEUTROPHILS % (AUTO) 75.7 % (42-75); PLATELET COUNT 180 X10'3 (140-440); RED BLOOD COUNT 2.32 X10'6 (4.70-6.10); RED CELL DISTRIBUTION WIDTH 14.1 % (11.5-14.5); WHITE BLOOD COUNT 9.4 X10'3 (4.5-11.0)
[2021-05-23 03:11] LABS: ALANINE AMINOTRANSFERASE 29 U/L (12-78); ALBUMIN/GLOBULIN RATIO 1.1 (1.1-1.5); ALKALINE PHOSPHATASE 50 IU/L (46-116); ANION GAP 9 (8-16); ASPARTATE AMINO TRANSFERASE 27 U/L (10-37); BILIRUBIN,TOTAL 0.8 MG/DL (0.1-1.0); BLOOD UREA NITROGEN 19 MG/DL (7-18); BUN/CREATININE RATIO 20.9 (5.4-32.0); CALCIUM 8.1 MG/DL (8.5-10.1); CHLORIDE 109 MMOL/L (99-107); CREATININE 0.91 MG/DL (0.60-1.10); GLUCOSE 135 MG/DL (70-104); MAGNESIUM 2.1 MG/DL (1.5-2.4); PHOSPHORUS 2.1 MG/DL (2.3-4.5); POTASSIUM 3.8 MMOL/L (3.5-5.1); SODIUM 145 MMOL/L (135-145); TOTAL CARBON DIOXIDE 27.5 MMOL/L (24-32); TOTAL PROTEIN 5.8 G/DL (6.4-8.2); eGFR 79 ML/MIN
[2021-05-23] MEDS: NORepinephrine 8mg/ 250ml NS 250 ML IV SCH (04:58)
--- NOTE | 2021-05-23 06:18 | NUR ---
Problems reprioritized. Patient report given, questions answered & plan of care reviewed with Iona BENSON.
[2021-05-23] MEDS: lisinopril 5mg tablet PO SCH (07:51)
[2021-05-23] MEDS: docusate sodium 100mg/10ml UD cup PO SCH (07:51)
[2021-05-23] MEDS: pantoprazole IV 40 MG in dextrose 5%-water 100 ML IV SCH (07:51)
[2021-05-23] MEDS: atorvastatin 20mg tablet PO SCH (07:51)
[2021-05-23] MEDS: fluconazole/NS 400mg/200ml bag 200 ML IV SCH (07:51)
[2021-05-23] MEDS: metoprolol succinate 25mg (24-HOUR) SR. Tablet PO SCH (07:51)
[2021-05-23] MEDS: nitroGLYCERIN 0.1mg/hour patch TD SCH (07:52)
[2021-05-23] MEDS: K and/or MAG REPLACEMENT MC SCH ×2 (07:55→20:00)
[2021-05-23] MEDS ORDERED: POTASSIUM PHOSHATE inj. 30 MMOL in NORMAL SALINE 500ml IV.SOLN IV ONE (11:25)
[2021-05-23] MEDS ORDERED: acetaminophen 325mg/10.15ml oral unit dose solution PEG PRN (14:50)
[2021-05-23] MEDS ORDERED: mag hydrox/Alum hydrox/simeth 30ml oral suspension PEG PRN (14:51)
[2021-05-23] MEDS ORDERED: magnesium hydroxide 30ml (MOM) UD suspension PEG PRN (14:52)
[2021-05-23] MEDS ORDERED: ondansetron 4mg rapidly disintigrating tab PEG PRN (14:52)
[2021-05-23] MEDS ORDERED: diphenhydrAMINE 25 MG/10 ML UD oral solution PEG PRN (14:55)
[2021-05-23] MEDS: HYDROcodone/acetaminophen 10/325mg tab PO PRN (17:43)
[2021-05-23] MEDS: enoxaparin 40mg/0.4ml syringe SQ SCH (19:55)
[2021-05-23] MEDS: metoprolol tartrate 12.5mg (1/2 tablet) PEG SCH (19:55)
[2021-05-23] MEDS: docusate sodium 100mg/10ml UD cup PEG SCH (19:55)
[2021-05-23] MEDS: gabapentin 300mg capsule PEG SCH (19:58)
[2021-05-24] VITALS (24 sets, daily range): BP systolic 109–150; BP diastolic 60–87
[2021-05-24] MEDS: piperacillin/tazo 4.5gm/100ml 100 ML IV SCH ×3 (00:46→15:49)
[2021-05-24] MEDS: mineral oil/petrolatum ophthal oint EACHEYE SCH ×4 (02:14→20:06)
[2021-05-24] MEDS: ROPINIRole 1mg tablet PO SCH ×4 (02:14→20:07)
[2021-05-24 02:59] LABS: BASOPHILS % (AUTO) 0.4 % (0-1); EOSINOPHILS # (AUTO) 0.5 X10'3 (0-0.9); EOSINOPHILS % (AUTO) 4.1 % (0-6); HEMATOCRIT 25.7 % (42.0-52.0); HEMOGLOBIN 8.6 g/dl (14.0-17.9); LYMPHOCYTES # (AUTO) 1.2 X10'3 (1.1-4.8); LYMPHOCYTES % (AUTO) 9.5 % (21-51); MEAN CORPUSCULAR HEMOGLOBIN 31.9 PG (27.0-31.0); MEAN CORPUSCULAR HGB CONC 33.4 g/dL (33.0-36.5); MEAN CORPUSCULAR VOLUME 95.3 FL (78-98); MEAN PLATELET VOLUME 7.7 FL (7.4-10.4); MONOCYTES # (AUTO) 1.2 X10'3 (0-0.9); MONOCYTES % (AUTO) 9.3 % (2-12); NEUTROPHILS # (AUTO) 9.8 X10'3 (1.8-7.7); NEUTROPHILS % (AUTO) 76.7 % (42-75); PLATELET COUNT 266 X10'3 (140-440); RED BLOOD COUNT 2.69 X10'6 (4.70-6.10); RED CELL DISTRIBUTION WIDTH 13.8 % (11.5-14.5); WHITE BLOOD COUNT 12.8 X10'3 (4.5-11.0)
[2021-05-24 03:12] LABS: ABG BASE EXCESS 2.1 mmol/L (-2.0-2.0); ABG HCO3 25.6 mmol/L (22.0-26.0); ABG OXYGEN SATURATION 95.9 % (94-97); ABG PCO2 (T) 36.7 mmHg (35.0-48.0); ABG PO2 (T) 82.2 mmHg (75.0-100.0); ALLEN'S TEST POSITIVE; FCOHb 0.3 % (0.0-3.9); FMetHb 0.2 % (0.0-1.5); FO2Hb 95.4 % (94-97); PATIENT TEMPERATURE 37.8; PEEP 5 cm H2O; RESPIRATORY RATE 14 b/min; TIDAL VOLUME 550 mL; TOTAL HEMOGLOBIN 9.6 G/dl (14.0-18.0)
[2021-05-24 03:21] LABS: ALANINE AMINOTRANSFERASE 37 U/L (12-78); ALBUMIN 2.9 G/DL (3.4-5.0); ALBUMIN/GLOBULIN RATIO 0.9 (1.1-1.5); ALKALINE PHOSPHATASE 59 IU/L (46-116); ANION GAP 10 (8-16); ASPARTATE AMINO TRANSFERASE 30 U/L (10-37); BILIRUBIN,TOTAL 0.8 MG/DL (0.1-1.0); BLOOD UREA NITROGEN 24 MG/DL (7-18); BUN/CREATININE RATIO 26.1 (5.4-32.0); CALCIUM 8.3 MG/DL (8.5-10.1); CHLORIDE 107 MMOL/L (99-107); CREATININE 0.92 MG/DL (0.60-1.10); GLUCOSE 146 MG/DL (70-104); SODIUM 145 MMOL/L (135-145); TOTAL CARBON DIOXIDE 28.3 MMOL/L (24-32); TOTAL PROTEIN 6.2 G/DL (6.4-8.2); eGFR 78 ML/MIN
[2021-05-24] MEDS: docusate sodium 100mg/10ml UD cup PEG SCH ×2 (08:18→20:06)
[2021-05-24] MEDS: nitroGLYCERIN 0.1mg/hour patch TD SCH (08:18)
[2021-05-24] MEDS: metoprolol tartrate 12.5mg (1/2 tablet) PEG SCH ×2 (08:18→20:07)
[2021-05-24] MEDS: atorvastatin 20mg tablet PEG SCH (08:19)
[2021-05-24] MEDS: lansoprazole 15mg solutab PEG SCH (08:19)
[2021-05-24] MEDS: fluconazole/NS 400mg/200ml bag 200 ML IV SCH (08:20)
[2021-05-24] MEDS: lisinopril 5mg tablet PEG SCH (08:20)
[2021-05-24] MEDS: K and/or MAG REPLACEMENT MC SCH ×2 (08:21→20:00)
[2021-05-24] MEDS: HYDROcodone/acetaminophen 5mg/325mg tablet PO PRN ×4 (08:31→19:17)
--- NOTE | 2021-05-24 11:15 | NUR ---
F/u 05/24: Pt tolerating TF at goal updated estimated needs below following first scaled wt this admit BMI 26. Continues to meet estimated needs w/ current TF recs. LBM 05/23 AM however 0ml stool documented this admit; possible error w/ persistent 6 days constipation. Receiving routine colace post-op; may benefit from further bowel if truly constipation per MD discretion. Will continue to monitor for further nutrition intervention needs this admit. Recommendations: 1. Continuous TF via J-tube using Vital AF at 75 ml/hr goal to provide 1800 ml volume/day, 2160 kcal, 1458 ml water, and 135 g protein. 2. Additional 250 mL water flush Q4H per MD; monitor serum Na and need to adjust 3. Prealbumin q Saturday/; Daily scaled weights 4. Routine bowel care post-op; possible no BM since admit 6 days Addendum: 05/24/21 at [address] Amended: Links added.
[2021-05-24] MEDS: HYDROcodone/acetaminophen 10/325mg tab PO PRN ×2 (11:49→16:35)
--- NOTE | 2021-05-24 18:30 | NUR ---
Patient in room ICU 2043. I have received report from Martha BENSON and had the opportunity to ask questions and assume patient care.
[2021-05-24] MEDS: gabapentin 300mg capsule PEG SCH (20:06)
[2021-05-24] MEDS: enoxaparin 40mg/0.4ml syringe SQ SCH (20:07)
[2021-05-25] VITALS (24 sets, daily range): BP systolic 83–140; BP diastolic 49–87
[2021-05-25] MEDS: piperacillin/tazo 4.5gm/100ml 100 ML IV SCH ×3 (00:19→16:39)
[2021-05-25] MEDS: mineral oil/petrolatum ophthal oint EACHEYE SCH ×4 (02:30→20:00)
[2021-05-25] MEDS: ROPINIRole 1mg tablet PO SCH ×4 (02:33→20:57)
[2021-05-25] MEDS: HYDROcodone/acetaminophen 10/325mg tab PO PRN ×2 (02:33→12:59)
[2021-05-25 02:55] LABS: BASOPHILS # (AUTO) 0.1 X10'3 (0-0.2); BASOPHILS % (AUTO) 0.8 % (0-1); EOSINOPHILS # (AUTO) 0.8 X10'3 (0-0.9); EOSINOPHILS % (AUTO) 6.2 % (0-6); HEMOGLOBIN 8.4 g/dl (14.0-17.9); LYMPHOCYTES % (AUTO) 7.6 % (21-51); MEAN CORPUSCULAR HEMOGLOBIN 31.6 PG (27.0-31.0); MEAN CORPUSCULAR HGB CONC 33.4 g/dL (33.0-36.5); MEAN CORPUSCULAR VOLUME 94.6 FL (78-98); MEAN PLATELET VOLUME 7.9 FL (7.4-10.4); MONOCYTES # (AUTO) 1.1 X10'3 (0-0.9); MONOCYTES % (AUTO) 8.6 % (2-12); NEUTROPHILS # (AUTO) 10.2 X10'3 (1.8-7.7); NEUTROPHILS % (AUTO) 76.8 % (42-75); PLATELET COUNT 318 X10'3 (140-440); RED BLOOD COUNT 2.64 X10'6 (4.70-6.10); RED CELL DISTRIBUTION WIDTH 13.9 % (11.5-14.5); WHITE BLOOD COUNT 13.2 X10'3 (4.5-11.0)
[2021-05-25 03:09] LABS: ALANINE AMINOTRANSFERASE 27 U/L (12-78); ALBUMIN 2.7 G/DL (3.4-5.0); ALBUMIN/GLOBULIN RATIO 0.8 (1.1-1.5); ALKALINE PHOSPHATASE 59 IU/L (46-116); ANION GAP 4 (8-16); ASPARTATE AMINO TRANSFERASE 15 U/L (10-37); BILIRUBIN,TOTAL 0.7 MG/DL (0.1-1.0); BLOOD UREA NITROGEN 23 MG/DL (7-18); BUN/CREATININE RATIO 27.4 (5.4-32.0); CALCIUM 8.4 MG/DL (8.5-10.1); CHLORIDE 107 MMOL/L (99-107); CREATININE 0.84 MG/DL (0.60-1.10); GLUCOSE 152 MG/DL (70-104); POTASSIUM 3.6 MMOL/L (3.5-5.1); SODIUM 140 MMOL/L (135-145); TOTAL CARBON DIOXIDE 29.4 MMOL/L (24-32); TOTAL PROTEIN 6.2 G/DL (6.4-8.2); eGFR 87 ML/MIN
[2021-05-25 03:43] LABS: ABG BASE EXCESS 3.7 mmol/L (-2.0-2.0); ABG HCO3 27.6 mmol/L (22.0-26.0); ABG OXYGEN SATURATION 96.5 % (94-97); ABG PCO2 (T) 40.1 mmHg (35.0-48.0); ABG PO2 (T) 87.9 mmHg (75.0-100.0); FCOHb 0.3 % (0.0-3.9); FMetHb 0.2 % (0.0-1.5); PATIENT TEMPERATURE 37.6; PEEP 5 cm H2O; TOTAL HEMOGLOBIN 8.9 G/dl (14.0-18.0)
--- NOTE | 2021-05-25 06:30 | NUR ---
Patient in room ICU 2043. I have received report from Dakotah BENSON and had the opportunity to ask questions and assume patient care.
--- NOTE | 2021-05-25 06:41 | NUR ---
Problems reprioritized. Patient report given, questions answered & plan of care reviewed with Kaylene BENSON.
[2021-05-25] MEDS: lansoprazole 15mg solutab PEG SCH (07:54)
[2021-05-25] MEDS: atorvastatin 20mg tablet PEG SCH (07:54)
[2021-05-25] MEDS: docusate sodium 100mg/10ml UD cup PEG SCH ×2 (07:54→20:56)
[2021-05-25] MEDS: lisinopril 5mg tablet PEG SCH (07:55)
[2021-05-25] MEDS: metoprolol tartrate 12.5mg (1/2 tablet) PEG SCH ×2 (07:56→20:57)
[2021-05-25] MEDS: nitroGLYCERIN 0.1mg/hour patch TD SCH (07:57)
[2021-05-25] MEDS: K and/or MAG REPLACEMENT MC SCH ×2 (07:58→20:00)
[2021-05-25] MEDS: fluconazole/NS 400mg/200ml bag 200 ML IV SCH (12:49)
--- NOTE | 2021-05-25 18:18 | NUR ---
Problems reprioritized. Patient report given, questions answered & plan of care reviewed with Dakotah BENSON.
--- NOTE | 2021-05-25 18:30 | NUR ---
Patient in room ICU 2043. I have received report from Kaylene BENSON and had the opportunity to ask questions and assume patient care.
[2021-05-25] MEDS: enoxaparin 40mg/0.4ml syringe SQ SCH (20:56)
[2021-05-25] MEDS: gabapentin 300mg capsule PEG SCH (20:57)
--- NOTE | 2021-05-25 23:03 | NUR ---
Ordered Precedex per Dr. Perez verbal order before leaving. Pt has visual hallucinations that are non-aggressive and does not sleep. Pt also had XXL bowel movement.
[2021-05-25] MEDS: dexmedetomidin/NS 400mcg/100ml 100 ML IV PRN (23:27)
[2021-05-26] VITALS (24 sets, daily range): BP systolic 84–132; BP diastolic 44–84
[2021-05-26] MEDS: piperacillin/tazo 4.5gm/100ml 100 ML IV SCH ×4 (00:36→20:45)
[2021-05-26] MEDS: mineral oil/petrolatum ophthal oint EACHEYE SCH ×4 (02:22→20:46)
[2021-05-26] MEDS: ROPINIRole 1mg tablet PO SCH ×4 (02:27→20:45)
[2021-05-26 02:57] LABS: BASOPHILS # (AUTO) 0.1 X10'3 (0-0.2); BASOPHILS % (AUTO) 0.8 % (0-1); EOSINOPHILS # (AUTO) 0.9 X10'3 (0-0.9); EOSINOPHILS % (AUTO) 7.2 % (0-6); HEMATOCRIT 23.5 % (42.0-52.0); HEMOGLOBIN 7.8 g/dl (14.0-17.9); LYMPHOCYTES # (AUTO) 1.4 X10'3 (1.1-4.8); LYMPHOCYTES % (AUTO) 10.7 % (21-51); MEAN CORPUSCULAR HEMOGLOBIN 31.6 PG (27.0-31.0); MEAN CORPUSCULAR HGB CONC 33.4 g/dL (33.0-36.5); MEAN CORPUSCULAR VOLUME 94.6 FL (78-98); MEAN PLATELET VOLUME 7.9 FL (7.4-10.4); MONOCYTES % (AUTO) 7.5 % (2-12); NEUTROPHILS # (AUTO) 9.4 X10'3 (1.8-7.7); NEUTROPHILS % (AUTO) 73.8 % (42-75); PLATELET COUNT 340 X10'3 (140-440); RED BLOOD COUNT 2.48 X10'6 (4.70-6.10); WHITE BLOOD COUNT 12.7 X10'3 (4.5-11.0)
[2021-05-26 03:07] LABS: ALANINE AMINOTRANSFERASE 25 U/L (12-78); ALBUMIN 2.5 G/DL (3.4-5.0); ALBUMIN/GLOBULIN RATIO 0.8 (1.1-1.5); ALKALINE PHOSPHATASE 59 IU/L (46-116); ANION GAP 7 (8-16); ASPARTATE AMINO TRANSFERASE 15 U/L (10-37); BILIRUBIN,TOTAL 0.5 MG/DL (0.1-1.0); BLOOD UREA NITROGEN 24 MG/DL (7-18); BUN/CREATININE RATIO 28.6 (5.4-32.0); CALCIUM 8.4 MG/DL (8.5-10.1); CHLORIDE 109 MMOL/L (99-107); CREATININE 0.84 MG/DL (0.60-1.10); GLUCOSE 151 MG/DL (70-104); POTASSIUM 3.8 MMOL/L (3.5-5.1); SODIUM 145 MMOL/L (135-145); TOTAL CARBON DIOXIDE 29.5 MMOL/L (24-32); TOTAL PROTEIN 5.7 G/DL (6.4-8.2); eGFR 87 ML/MIN
--- NOTE | 2021-05-26 06:13 | NUR ---
Problems reprioritized. Patient report given, questions answered & plan of care reviewed with Kaylene BENSON.
--- NOTE | 2021-05-26 06:42 | NUR ---
Patient in room ICU 2043. I have received report from Dakotah BENSON and had the opportunity to ask questions and assume patient care.
[2021-05-26] MEDS: dexmedetomidin/NS 400mcg/100ml 100 ML IV PRN ×2 (07:06→12:13)
[2021-05-26] MEDS: docusate sodium 100mg/10ml UD cup PEG SCH ×2 (07:06→20:00)
[2021-05-26] MEDS: atorvastatin 20mg tablet PEG SCH (07:48)
[2021-05-26] MEDS: lansoprazole 15mg solutab PEG SCH (07:48)
[2021-05-26] MEDS: lisinopril 5mg tablet PEG SCH ×2 (07:51→08:00)
[2021-05-26] MEDS: metoprolol tartrate 12.5mg (1/2 tablet) PEG SCH ×3 (07:51→20:45)
[2021-05-26] MEDS: nitroGLYCERIN 0.1mg/hour patch TD SCH (07:52)
[2021-05-26] MEDS: K and/or MAG REPLACEMENT MC SCH ×2 (07:55→20:00)
[2021-05-26] MEDS ORDERED: ketorolac tromethamine 15mg/ml inj. IM SCH (08:00)
[2021-05-26] MEDS: fluconazole/NS 400mg/200ml bag 200 ML IV SCH (12:14)
[2021-05-26] MEDS: HYDROcodone/acetaminophen 10/325mg tab PO PRN ×2 (13:24→20:48)
--- NOTE | 2021-05-26 18:30 | NUR ---
Patient in room ICU 2043. I have received report from Kaylene BENSON and had the opportunity to ask questions and assume patient care.
--- NOTE | 2021-05-26 18:33 | NUR ---
Problems reprioritized. Patient report given, questions answered & plan of care reviewed with Dakotah BENSON.
[2021-05-26] MEDS: gabapentin 300mg capsule PEG SCH (20:44)
[2021-05-26] MEDS: enoxaparin 40mg/0.4ml syringe SQ SCH (20:44)
[2021-05-27] VITALS (22 sets, daily range): BP systolic 79–142; BP diastolic 49–83
[2021-05-27] MEDS: mineral oil/petrolatum ophthal oint EACHEYE SCH ×4 (02:47→20:58)
[2021-05-27] MEDS: ROPINIRole 1mg tablet PO SCH ×4 (02:51→20:56)
[2021-05-27 06:25] LABS: BASOPHILS # (AUTO) 0.1 X10'3 (0-0.2); BASOPHILS % (AUTO) 0.7 % (0-1); EOSINOPHILS # (AUTO) 1.1 X10'3 (0-0.9); EOSINOPHILS % (AUTO) 7.2 % (0-6); HEMATOCRIT 25.5 % (42.0-52.0); HEMOGLOBIN 8.8 g/dl (14.0-17.9); LYMPHOCYTES # (AUTO) 1.6 X10'3 (1.1-4.8); LYMPHOCYTES % (AUTO) 10.2 % (21-51); MEAN CORPUSCULAR HEMOGLOBIN 32.4 PG (27.0-31.0); MEAN CORPUSCULAR HGB CONC 34.6 g/dL (33.0-36.5); MEAN CORPUSCULAR VOLUME 93.7 FL (78-98); MEAN PLATELET VOLUME 7.6 FL (7.4-10.4); MONOCYTES # (AUTO) 1.2 X10'3 (0-0.9); MONOCYTES % (AUTO) 7.6 % (2-12); NEUTROPHILS # (AUTO) 11.4 X10'3 (1.8-7.7); NEUTROPHILS % (AUTO) 74.3 % (42-75); PLATELET COUNT 465 X10'3 (140-440); RED BLOOD COUNT 2.72 X10'6 (4.70-6.10); WHITE BLOOD COUNT 15.4 X10'3 (4.5-11.0)
--- NOTE | 2021-05-27 06:30 | NUR ---
Patient in room ICU 2043. I have received report from Gonzales BENSON and had the opportunity to ask questions and assume patient care.
--- NOTE | 2021-05-27 06:31 | NUR ---
Problems reprioritized. Patient report given, questions answered & plan of care reviewed with yosef BENSON.
[2021-05-27 07:07] LABS: ALANINE AMINOTRANSFERASE 28 U/L (12-78); ALBUMIN 2.6 G/DL (3.4-5.0); ALBUMIN/GLOBULIN RATIO 0.7 (1.1-1.5); ALKALINE PHOSPHATASE 59 IU/L (46-116); ANION GAP 8 (8-16); ASPARTATE AMINO TRANSFERASE 19 U/L (10-37); BILIRUBIN,TOTAL 0.4 MG/DL (0.1-1.0); BLOOD UREA NITROGEN 25 MG/DL (7-18); BUN/CREATININE RATIO 29.4 (5.4-32.0); CALCIUM 8.6 MG/DL (8.5-10.1); CHLORIDE 106 MMOL/L (99-107); CREATININE 0.85 MG/DL (0.60-1.10); GLUCOSE 102 MG/DL (70-104); POTASSIUM 3.6 MMOL/L (3.5-5.1); SODIUM 145 MMOL/L (135-145); TOTAL CARBON DIOXIDE 30.7 MMOL/L (24-32); TOTAL PROTEIN 6.4 G/DL (6.4-8.2); eGFR 86 ML/MIN
[2021-05-27 07:22] LABS: PLATELET ESTIMATE NORMAL; TOTAL CELLS COUNTED 100
[2021-05-27] MEDS ORDERED: sod chloride 0.9% 10ml flush syringe IV ONE (08:00)
[2021-05-27] MEDS: docusate sodium 100mg/10ml UD cup PEG SCH ×2 (08:00→20:56)
[2021-05-27] MEDS ORDERED: rocuronium 10mg/ml inj IV ONE (08:00)
[2021-05-27] MEDS: K and/or MAG REPLACEMENT MC SCH ×2 (08:00→20:00)
[2021-05-27] MEDS ORDERED: etomidate 2mg/ml inj. ONE (08:00)
[2021-05-27] MEDS: piperacillin/tazo 4.5gm/100ml 100 ML IV SCH ×2 (08:31→15:55)
[2021-05-27] MEDS: nitroGLYCERIN 0.1mg/hour patch TD SCH (08:31)
[2021-05-27] MEDS: lansoprazole 15mg solutab PEG SCH (08:31)
[2021-05-27] MEDS: atorvastatin 20mg tablet PEG SCH (08:32)
[2021-05-27] MEDS: metoprolol tartrate 12.5mg (1/2 tablet) PEG SCH ×2 (08:32→20:00)
[2021-05-27] MEDS: lisinopril 5mg tablet PEG SCH (08:32)
[2021-05-27] MEDS: HYDROcodone/acetaminophen 10/325mg tab PO PRN (08:33)
[2021-05-27] MEDS: fluconazole/NS 400mg/200ml bag 200 ML IV SCH (12:52)
[2021-05-27 17:17] LABS: ABG BASE EXCESS 0.4 mmol/L (-2.0-2.0); ABG HCO3 24.1 mmol/L (22.0-26.0); ABG OXYGEN SATURATION 93.1 % (94-97); ABG PCO2 (T) 37.4 mmHg (35.0-48.0); ABG PO2 (T) 72.8 mmHg (75.0-100.0); ALLEN'S TEST POSITIVE; FCOHb 0.3 % (0.0-3.9); FLOW 8 L/min; FMetHb 0.2 % (0.0-1.5); FO2Hb 92.6 % (94-97); PATIENT TEMPERATURE 38.5; TOTAL HEMOGLOBIN 10.6 G/dl (14.0-18.0)
--- NOTE | 2021-05-27 18:20 | NUR ---
Patient in room ICU 2043. I have received report from Sarah BENSON and had the opportunity to ask questions and assume patient care.
--- NOTE | 2021-05-27 18:39 | NUR ---
Problems reprioritized. Patient report given, questions answered & plan of care reviewed with Qiana BENSON.
[2021-05-27] MEDS: propofol 1000mg/100ml bottle 100 ML IV SCH (18:45)
[2021-05-27] MEDS: FENTANYL-0.9 % NACL/PF 100 ML IV PRN (18:45)
[2021-05-27 19:04] LABS: ABG BASE EXCESS 0.6 mmol/L (-2.0-2.0); ABG HCO3 25.3 mmol/L (22.0-26.0); ABG OXYGEN SATURATION 94.9 % (94-97); ABG PCO2 (T) 43.6 mmHg (35.0-48.0); ABG PO2 (T) 87.6 mmHg (75.0-100.0); FCOHb 0.3 % (0.0-3.9); FMetHb 0.3 % (0.0-1.5); FO2Hb 94.3 % (94-97); PATIENT TEMPERATURE 38.4; PEEP 5 cm H2O; RESPIRATORY RATE 18 b/min; TIDAL VOLUME 500 mL
[2021-05-27] MEDS: gabapentin 300mg capsule PEG SCH (20:57)
[2021-05-27] MEDS: acetaminophen 325mg/10.15ml oral unit dose solution PEG PRN (23:14)
[2021-05-27] MEDS: enoxaparin 40mg/0.4ml syringe SQ SCH (23:15)
[2021-05-27] MEDS ORDERED: albumin (Human) 5% 250ml 250 ML IV ONE ×2 (23:30)
[2021-05-27] MEDS ORDERED: NORepinephrine 8mg/ 250ml NS 250 ML IV ONE (23:32)
--- NOTE | 2021-05-27 23:40 | NUR ---
Took PT to CT, PT tolerated fairly. Upon arrival back to unit, PT's BP was on downwards trend with no change in meds and HR was 110's. MD notified orders received ton give 500ml of Albumin and to start low dose Levo. MD made aware PT does not have a CVL and has Midline to [place], ports flush and have good blood return. Order received and will continue to monitor.
[2021-05-27] MEDS: NORepinephrine 8mg/ 250ml NS 250 ML IV PRN (23:43)
[2021-05-28] VITALS (27 sets, daily range): BP systolic 88–188; BP diastolic 50–105
[2021-05-28] MEDS: piperacillin/tazo 4.5gm/100ml 100 ML IV SCH ×2 (00:58→09:25)
[2021-05-28] MEDS: mineral oil/petrolatum ophthal oint EACHEYE SCH ×4 (02:00→20:09)
[2021-05-28] MEDS: ROPINIRole 1mg tablet PO SCH ×4 (02:00→20:08)
[2021-05-28 03:46] LABS: BASOPHILS # (AUTO) 0.1 X10'3 (0-0.2); BASOPHILS % (AUTO) 0.7 % (0-1); EOSINOPHILS # (AUTO) 0.7 X10'3 (0-0.9); EOSINOPHILS % (AUTO) 3.7 % (0-6); HEMATOCRIT 23.9 % (42.0-52.0); HEMOGLOBIN 8.1 g/dl (14.0-17.9); LYMPHOCYTES # (AUTO) 1.5 X10'3 (1.1-4.8); LYMPHOCYTES % (AUTO) 7.7 % (21-51); MEAN CORPUSCULAR HGB CONC 34.1 g/dL (33.0-36.5); MEAN CORPUSCULAR VOLUME 93.7 FL (78-98); MEAN PLATELET VOLUME 7.6 FL (7.4-10.4); MONOCYTES # (AUTO) 0.9 X10'3 (0-0.9); MONOCYTES % (AUTO) 4.8 % (2-12); NEUTROPHILS # (AUTO) 15.9 X10'3 (1.8-7.7); NEUTROPHILS % (AUTO) 83.1 % (42-75); PLATELET COUNT 543 X10'3 (140-440); RED BLOOD COUNT 2.55 X10'6 (4.70-6.10); RED CELL DISTRIBUTION WIDTH 13.9 % (11.5-14.5); WHITE BLOOD COUNT 19.2 X10'3 (4.5-11.0)
[2021-05-28 03:57] LABS: ABG BASE EXCESS 3.1 mmol/L (-2.0-2.0); ABG HCO3 26.9 mmol/L (22.0-26.0); ABG OXYGEN SATURATION 99.4 % (94-97); ABG PCO2 (T) 39.6 mmHg (35.0-48.0); ABG PO2 (T) 247.9 mmHg (75.0-100.0); FCOHb 0.3 % (0.0-3.9); FMetHb 0.2 % (0.0-1.5); FO2Hb 98.9 % (94-97); PATIENT TEMPERATURE 37.9; PEEP 5 cm H2O; RESPIRATORY RATE 18 b/min; TIDAL VOLUME 500 mL; TOTAL HEMOGLOBIN 11.1 G/dl (14.0-18.0)
[2021-05-28 04:02] LABS: ALANINE AMINOTRANSFERASE 22 U/L (12-78); ALBUMIN 2.7 G/DL (3.4-5.0); ALBUMIN/GLOBULIN RATIO 0.8 (1.1-1.5); ALKALINE PHOSPHATASE 53 IU/L (46-116); ANION GAP 8 (8-16); ASPARTATE AMINO TRANSFERASE 14 U/L (10-37); BILIRUBIN,TOTAL 0.5 MG/DL (0.1-1.0); BLOOD UREA NITROGEN 29 MG/DL (7-18); BUN/CREATININE RATIO 25.9 (5.4-32.0); CALCIUM 8.5 MG/DL (8.5-10.1); CHLORIDE 108 MMOL/L (99-107); CREATININE 1.12 MG/DL (0.60-1.10); GLUCOSE 174 MG/DL (70-104); POTASSIUM 3.8 MMOL/L (3.5-5.1); SODIUM 145 MMOL/L (135-145); TOTAL CARBON DIOXIDE 29.3 MMOL/L (24-32); TOTAL PROTEIN 6.3 G/DL (6.4-8.2); TRIGLYCERIDES 45 MG/DL (20-135); eGFR 62 ML/MIN
[2021-05-28 05:20] LABS: TOTAL CELLS COUNTED 100
[2021-05-28 05:21] LABS: LARGE PLATELETS FEW; PLATELET ESTIMATE INCREASED; TOXIC GRANULATION 1+
--- NOTE | 2021-05-28 06:42 | NUR ---
Problems reprioritized. Patient report given, questions answered & plan of care reviewed with Hussain BENSON.
[2021-05-28] MEDS: lisinopril 5mg tablet PEG SCH (08:00)
[2021-05-28] MEDS: nitroGLYCERIN 0.1mg/hour patch TD SCH ×2 (08:00→09:27)
[2021-05-28] MEDS: K and/or MAG REPLACEMENT MC SCH ×2 (08:00→20:33)
[2021-05-28] MEDS: metoprolol tartrate 12.5mg (1/2 tablet) PEG SCH ×2 (08:00→20:08)
[2021-05-28] MEDS ORDERED: cyclobenzaprine 10mg tablet PO SCH (08:00)
--- NOTE | 2021-05-28 09:06 | NUR ---
F/u 05/28: Pt extubated 05/25 though reintubated 05/27. Pt tolerating TF at goal of Vital AF at 75ml/hr. Continues to meet estimated needs w/ current TF recs. LBM 05/26 w/ moderate size stool though no amount documented. Receiving routine colace post-op; may benefit from further bowel if truly constipation per MD discretion. Will continue to monitor for further nutrition intervention needs this admit. Recommendations: 1. Continuous TF via J-tube using Vital AF at 75 ml/hr goal to provide 1800 ml volume/day, 2160 kcal, 1458 ml water, and 135 g protein. 2. Additional 250 mL water flush Q4H per MD; monitor serum Na and need to adjust 3. Prealbumin q Saturday/; Daily scaled weights 4. Routine bowel care post-op; possible no BM since admit 10 days Addendum: 05/28/21 at [address] Amended: Links added.
[2021-05-28 09:09] LABS: MAGNESIUM 2.6 MG/DL (1.5-2.4); PHOSPHORUS 3.4 MG/DL (2.3-4.5)
[2021-05-28] MEDS: docusate sodium 100mg/10ml UD cup PEG SCH ×2 (09:25→20:08)
[2021-05-28] MEDS: lansoprazole 15mg solutab PEG SCH (09:26)
[2021-05-28] MEDS: cyclobenzaprine 10mg tablet PO SCH ×2 (09:27→16:26)
[2021-05-28] MEDS: atorvastatin 20mg tablet PEG SCH (09:28)
[2021-05-28] MEDS: dexmedetomidin/NS 400mcg/100ml 100 ML IV PRN (10:44)
[2021-05-28] MEDS ORDERED: metoclopramide 5 mg/ml inj IV PRN (11:35)
[2021-05-28] MEDS ORDERED: LIDOcaine 1% 30ml preserv. free vial IJ STA (11:51)
[2021-05-28] MEDS: metoclopramide 5 mg/ml inj IV SCH ×4 (11:55→20:00)
[2021-05-28] MEDS: vancomycin/NS 1 GM ADD-VANTAGE 250 ML IV SCH (11:56)
[2021-05-28] MEDS ORDERED: LIDOcaine 1% (10mg/ml) 2ml vial ONE (12:47)
[2021-05-28] MEDS: fluconazole/NS 400mg/200ml bag 200 ML IV SCH (13:47)
[2021-05-28] MEDS: ipratropium/albuterol 3ml nebule NEB SCH ×2 (15:58→21:07)
[2021-05-28] MEDS: FENTANYL-0.9 % NACL/PF 100 ML IV PRN (16:31)
[2021-05-28] MEDS: piperacillin/tazo 3.375gm/50ml 50 ML IV SCH (16:35)
[2021-05-28] MEDS: gabapentin 300mg capsule PEG SCH (20:08)
[2021-05-28] MEDS: enoxaparin 40mg/0.4ml syringe SQ SCH (20:08)
[2021-05-28] MEDS: acetylcysteine 200 MG/ml 4ml vial INH SCH (21:07)
[2021-05-28] MEDS ORDERED: atropine 0.1mg/ml 10ml syringe ONE (22:49)
--- NOTE | 2021-05-28 23:06 | NUR ---
Pt was given Metoprol at 2000 and Pt was on levo at 0.7. Pt's HR dropped down to 34 bpm. Pt's heart rhythm was showing a third degree block and was given 1/2 amp of atropine. Pt's current HR is [address] Mchugh was notified and requested the Metoprol be discontinued. Will continue to monitor.
[2021-05-29] VITALS (23 sets, daily range): BP systolic 88–132; BP diastolic 21–82
[2021-05-29] MEDS: piperacillin/tazo 3.375gm/50ml 50 ML IV SCH ×4 (00:12→23:44)
[2021-05-29] MEDS: cyclobenzaprine 10mg tablet PO SCH ×4 (00:12→23:44)
[2021-05-29] MEDS: acetaminophen 325mg/10.15ml oral unit dose solution PEG PRN ×3 (00:12→23:45)
[2021-05-29] MEDS: metoclopramide 5 mg/ml inj IV SCH ×4 (02:00→20:00)
[2021-05-29] MEDS: ROPINIRole 1mg tablet PO SCH ×4 (02:12→20:38)
[2021-05-29] MEDS: mineral oil/petrolatum ophthal oint EACHEYE SCH ×4 (02:12→20:39)
[2021-05-29 03:10] LABS: BASOPHILS # (AUTO) 0.2 X10'3 (0-0.2); MEAN CORPUSCULAR VOLUME 93.7 FL (78-98); MONOCYTES # (AUTO) 1.3 X10'3 (0-0.9)
[2021-05-29 03:11] LABS: EOSINOPHILS # (AUTO) 0.8 X10'3 (0-0.9); EOSINOPHILS % (AUTO) 3.7 % (0-6); HEMATOCRIT 25.9 % (42.0-52.0); HEMOGLOBIN 8.7 g/dl (14.0-17.9); LYMPHOCYTES % (AUTO) 8.9 % (21-51); MEAN CORPUSCULAR HEMOGLOBIN 31.6 PG (27.0-31.0); MEAN CORPUSCULAR HGB CONC 33.7 g/dL (33.0-36.5); MEAN PLATELET VOLUME 7.6 FL (7.4-10.4); MONOCYTES % (AUTO) 5.8 % (2-12); NEUTROPHILS # (AUTO) 18.4 X10'3 (1.8-7.7); NEUTROPHILS % (AUTO) 80.6 % (42-75); PLATELET COUNT 751 X10'3 (140-440); RED BLOOD COUNT 2.76 X10'6 (4.70-6.10); RED CELL DISTRIBUTION WIDTH 14.1 % (11.5-14.5); WHITE BLOOD COUNT 22.8 X10'3 (4.5-11.0)
[2021-05-29] MEDS: ipratropium/albuterol 3ml nebule NEB SCH ×4 (03:20→20:57)
[2021-05-29 03:30] LABS: ABG BASE EXCESS 0.9 mmol/L (-2.0-2.0); ABG HCO3 25.3 mmol/L (22.0-26.0); ABG OXYGEN SATURATION 96.5 % (94-97); ABG PCO2 (T) 41.7 mmHg (35.0-48.0); ALLEN'S TEST POSITIVE; FCOHb 0.3 % (0.0-3.9); FMetHb 0.2 % (0.0-1.5); PATIENT TEMPERATURE 38.1; PEEP 5 cm H2O; RESPIRATORY RATE 18 b/min; TIDAL VOLUME 500 mL
[2021-05-29 03:34] LABS: ALANINE AMINOTRANSFERASE 22 U/L (12-78); ALBUMIN 2.5 G/DL (3.4-5.0); ALBUMIN/GLOBULIN RATIO 0.6 (1.1-1.5); ALKALINE PHOSPHATASE 56 IU/L (46-116); ANION GAP 10 (8-16); ASPARTATE AMINO TRANSFERASE 23 U/L (10-37); BILIRUBIN,TOTAL 0.4 MG/DL (0.1-1.0); BLOOD UREA NITROGEN 29 MG/DL (7-18); BUN/CREATININE RATIO 25.7 (5.4-32.0); CALCIUM 8.5 MG/DL (8.5-10.1); CHLORIDE 108 MMOL/L (99-107); CREATININE 1.13 MG/DL (0.60-1.10); GLUCOSE 172 MG/DL (70-104); MAGNESIUM 2.4 MG/DL (1.5-2.4); PHOSPHORUS 4.3 MG/DL (2.3-4.5); POTASSIUM 4.3 MMOL/L (3.5-5.1); PREALBUMIN 11.5 MG/DL (19-36); SODIUM 147 MMOL/L (135-145); TOTAL CARBON DIOXIDE 28.8 MMOL/L (24-32); TOTAL PROTEIN 6.6 G/DL (6.4-8.2); eGFR 62 ML/MIN
[2021-05-29 03:49] LABS: LARGE PLATELETS FEW; PLATELET ESTIMATE INCREASED
[2021-05-29] MEDS: acetylcysteine 200 MG/ml 4ml vial INH SCH ×2 (07:28→20:57)
[2021-05-29] MEDS: propofol 1000mg/100ml bottle 100 ML IV SCH (07:38)
[2021-05-29] MEDS: K and/or MAG REPLACEMENT MC SCH ×2 (08:00→20:40)
[2021-05-29] MEDS: lisinopril 5mg tablet PEG SCH (08:00)
[2021-05-29] MEDS: nitroGLYCERIN 0.1mg/hour patch TD SCH (08:00)
[2021-05-29] MEDS: docusate sodium 100mg/10ml UD cup PEG SCH ×2 (08:34→20:38)
[2021-05-29] MEDS: lansoprazole 15mg solutab PEG SCH (08:34)
[2021-05-29] MEDS: atorvastatin 20mg tablet PEG SCH (08:35)
[2021-05-29] MEDS: vancomycin/NS 1 GM ADD-VANTAGE 250 ML IV SCH (11:03)
[2021-05-29] MEDS: bisacodyl 10mg suppository rectal RC SCH (11:03)
[2021-05-29] MEDS: dexmedetomidin/NS 400mcg/100ml 100 ML IV PRN ×2 (11:03→20:29)
[2021-05-29] MEDS: fluconazole/NS 400mg/200ml bag 200 ML IV SCH (12:54)
[2021-05-29] MEDS: NORepinephrine 8mg/ 250ml NS 250 ML IV PRN (15:24)
--- NOTE | 2021-05-29 18:04 | NUR ---
Vital Af 1.2 restarted @ [address] Rabago.
[2021-05-29] MEDS: enoxaparin 40mg/0.4ml syringe SQ SCH (20:37)
[2021-05-29] MEDS: polyethylene glycol 3350 17gm powd pack PO SCH (20:37)
[2021-05-29] MEDS: gabapentin 300mg capsule PEG SCH (20:38)
[2021-05-29] MEDS: diatr meglu/diatrizoate 30ml oral sol.-(3 dose) bottle PO SCH (20:38)
[2021-05-30] VITALS (23 sets, daily range): BP systolic 87–128; BP diastolic 48–75
[2021-05-30] MEDS: metoclopramide 5 mg/ml inj IV SCH ×2 (02:00→08:26)
[2021-05-30 02:33] LABS: HEMOGLOBIN 8.1 g/dl (14.0-17.9); LYMPHOCYTES # (AUTO) 2.2 X10'3 (1.1-4.8); MEAN PLATELET VOLUME 7.4 FL (7.4-10.4); MONOCYTES # (AUTO) 1.1 X10'3 (0-0.9); RED CELL DISTRIBUTION WIDTH 14.3 % (11.5-14.5)
[2021-05-30 02:35] LABS: BASOPHILS # (AUTO) 0.2 X10'3 (0-0.2); BASOPHILS % (AUTO) 0.9 % (0-1); EOSINOPHILS # (AUTO) 0.3 X10'3 (0-0.9); EOSINOPHILS % (AUTO) 1.8 % (0-6); HEMATOCRIT 23.6 % (42.0-52.0); LYMPHOCYTES % (AUTO) 11.4 % (21-51); MEAN CORPUSCULAR HGB CONC 34.4 g/dL (33.0-36.5); MONOCYTES % (AUTO) 5.5 % (2-12); NEUTROPHILS # (AUTO) 15.5 X10'3 (1.8-7.7); NEUTROPHILS % (AUTO) 80.4 % (42-75); PLATELET COUNT 725 X10'3 (140-440); RED BLOOD COUNT 2.53 X10'6 (4.70-6.10); WHITE BLOOD COUNT 19.3 X10'3 (4.5-11.0)
[2021-05-30] MEDS: ROPINIRole 1mg tablet PO SCH ×4 (02:50→20:29)
[2021-05-30] MEDS: NORepinephrine 8mg/ 250ml NS 250 ML IV PRN (02:50)
[2021-05-30] MEDS: mineral oil/petrolatum ophthal oint EACHEYE SCH ×4 (02:50→20:00)
[2021-05-30 02:53] LABS: ALANINE AMINOTRANSFERASE 21 U/L (12-78); ALBUMIN 2.2 G/DL (3.4-5.0); ALBUMIN/GLOBULIN RATIO 0.5 (1.1-1.5); ALKALINE PHOSPHATASE 58 IU/L (46-116); ANION GAP 10 (8-16); ASPARTATE AMINO TRANSFERASE 21 U/L (10-37); BILIRUBIN,TOTAL 0.4 MG/DL (0.1-1.0); BLOOD UREA NITROGEN 27 MG/DL (7-18); BUN/CREATININE RATIO 23.3 (5.4-32.0); CALCIUM 8.6 MG/DL (8.5-10.1); CHLORIDE 109 MMOL/L (99-107); CREATININE 1.16 MG/DL (0.60-1.10); GLUCOSE 175 MG/DL (70-104); POTASSIUM 3.9 MMOL/L (3.5-5.1); SODIUM 148 MMOL/L (135-145); TOTAL CARBON DIOXIDE 28.9 MMOL/L (24-32); TOTAL PROTEIN 6.5 G/DL (6.4-8.2); eGFR 60 ML/MIN
--- NOTE | 2021-05-30 03:00 | NUR ---
Called Dr. Merlos, Pt had a critical hemoglobin of 7.0. I asked if he wanted to transfuse 1 unit of blood today during the pt's scheduled dialysis. He said no. Pt's hemoglobin has been trending in the 7's and Dr. Merlos suggested it might be related to her Euerythropoin levels. Addendum: 05/30/21 at 0532 by Dalila Ocasio RN Note is on wrong pt.
[2021-05-30] MEDS: ipratropium/albuterol 3ml nebule NEB SCH ×4 (03:12→20:26)
[2021-05-30 03:38] LABS: ABG BASE EXCESS 3.2 mmol/L (-2.0-2.0); ABG OXYGEN SATURATION 92.8 % (94-97); ABG PCO2 (T) 28.7 mmHg (35.0-48.0); ABG PO2 (T) 65.8 mmHg (75.0-100.0); ALLEN'S TEST POSITIVE; FCOHb 0.3 % (0.0-3.9); FMetHb 0.1 % (0.0-1.5); FO2Hb 92.4 % (94-97); PATIENT TEMPERATURE 37.4; PEEP 5 cm H2O; RESPIRATORY RATE 18 b/min; TIDAL VOLUME 500 mL; TOTAL HEMOGLOBIN 9.4 G/dl (14.0-18.0)
[2021-05-30] MEDS: diatr meglu/diatrizoate 30ml oral sol.-(3 dose) bottle PO SCH ×2 (07:45→21:00)
[2021-05-30] MEDS: lisinopril 5mg tablet PEG SCH (08:00)
[2021-05-30] MEDS: K and/or MAG REPLACEMENT MC SCH ×2 (08:00→20:00)
[2021-05-30] MEDS: nitroGLYCERIN 0.1mg/hour patch TD SCH (08:00)
[2021-05-30] MEDS: acetylcysteine 200 MG/ml 4ml vial INH SCH ×3 (08:00→20:26)
[2021-05-30] MEDS: docusate sodium 100mg/10ml UD cup PEG SCH ×2 (08:00→20:30)
[2021-05-30] MEDS: atorvastatin 20mg tablet PEG SCH (08:25)
[2021-05-30] MEDS: lansoprazole 15mg solutab PEG SCH (08:25)
[2021-05-30] MEDS: cyclobenzaprine 10mg tablet PO SCH ×3 (08:26→23:47)
[2021-05-30] MEDS: piperacillin/tazo 3.375gm/50ml 50 ML IV SCH ×3 (08:26→23:48)
[2021-05-30] MEDS ORDERED: iohexol 300mg/ml 100ml inj. ONE (10:36)
[2021-05-30] MEDS: acetaminophen 325mg/10.15ml oral unit dose solution PEG PRN (12:39)
[2021-05-30] MEDS: vancomycin/NS 1 GM ADD-VANTAGE 250 ML IV SCH (13:02)
[2021-05-30] MEDS ORDERED: bisacodyl 10mg suppository rectal RC STA (14:24)
[2021-05-30] MEDS ORDERED: polyethylene glycol 3350 17gm powd pack PO SCH (14:25)
[2021-05-30] MEDS: fluconazole/NS 400mg/200ml bag 200 ML IV SCH (14:51)
--- NOTE | 2021-05-30 18:30 | NUR ---
Patient in room ICU 2043. I have received report from Odalys BENSON and had the opportunity to ask questions and assume patient care.
[2021-05-30] MEDS: gabapentin 300mg capsule PEG SCH (20:28)
[2021-05-30] MEDS: dexmedetomidin/NS 400mcg/100ml 100 ML IV PRN (20:28)
[2021-05-30] MEDS: enoxaparin 40mg/0.4ml syringe SQ SCH (20:30)
[2021-05-30] MEDS: polyethylene glycol 3350 17gm powd pack PO SCH (21:00)
[2021-05-31] VITALS (25 sets, daily range): BP systolic 89–128; BP diastolic 36–68
[2021-05-31] MEDS: ipratropium/albuterol 3ml nebule NEB SCH ×4 (03:13→21:14)
[2021-05-31 03:17] LABS: BASOPHILS # (AUTO) 0.1 X10'3 (0-0.2); BASOPHILS % (AUTO) 0.8 % (0-1); EOSINOPHILS # (AUTO) 0.9 X10'3 (0-0.9); EOSINOPHILS % (AUTO) 4.8 % (0-6); HEMOGLOBIN 7.6 g/dl (14.0-17.9); LYMPHOCYTES # (AUTO) 1.8 X10'3 (1.1-4.8); MEAN CORPUSCULAR HEMOGLOBIN 31.1 PG (27.0-31.0); MEAN CORPUSCULAR VOLUME 94.2 FL (78-98); MEAN PLATELET VOLUME 7.4 FL (7.4-10.4); MONOCYTES # (AUTO) 0.9 X10'3 (0-0.9); MONOCYTES % (AUTO) 5.2 % (2-12); NEUTROPHILS # (AUTO) 13.9 X10'3 (1.8-7.7); NEUTROPHILS % (AUTO) 79.2 % (42-75); PLATELET COUNT 593 X10'3 (140-440); RED BLOOD COUNT 2.44 X10'6 (4.70-6.10); RED CELL DISTRIBUTION WIDTH 14.1 % (11.5-14.5); WHITE BLOOD COUNT 17.6 X10'3 (4.5-11.0)
[2021-05-31 03:22] LABS: ABG BASE EXCESS 0.5 mmol/L (-2.0-2.0); ABG HCO3 24.2 mmol/L (22.0-26.0); ABG OXYGEN SATURATION 96.9 % (94-97); ABG PCO2 (T) 35.2 mmHg (35.0-48.0); ABG PO2 (T) 93.4 mmHg (75.0-100.0); ALLEN'S TEST POSITIVE; FCOHb 0.3 % (0.0-3.9); FMetHb 0.2 % (0.0-1.5); FO2Hb 96.4 % (94-97); PEEP 5 cm H2O; RESPIRATORY RATE 18 b/min; TIDAL VOLUME 500 mL; TOTAL HEMOGLOBIN 8.7 G/dl (14.0-18.0)
[2021-05-31 03:44] LABS: ALANINE AMINOTRANSFERASE 20 U/L (12-78); ALBUMIN 2.3 G/DL (3.4-5.0); ALBUMIN/GLOBULIN RATIO 0.6 (1.1-1.5); ALKALINE PHOSPHATASE 63 IU/L (46-116); ANION GAP 10 (8-16); ASPARTATE AMINO TRANSFERASE 20 U/L (10-37); BILIRUBIN,TOTAL 0.4 MG/DL (0.1-1.0); BLOOD UREA NITROGEN 29 MG/DL (7-18); BUN/CREATININE RATIO 27.9 (5.4-32.0); CHLORIDE 111 MMOL/L (99-107); CREATININE 1.04 MG/DL (0.60-1.10); GLUCOSE 172 MG/DL (70-104); POTASSIUM 3.3 MMOL/L (3.5-5.1); SODIUM 147 MMOL/L (135-145); TOTAL PROTEIN 6.3 G/DL (6.4-8.2); eGFR 68 ML/MIN
[2021-05-31] MEDS: mineral oil/petrolatum ophthal oint EACHEYE SCH ×4 (03:49→20:26)
[2021-05-31] MEDS: ROPINIRole 1mg tablet PO SCH ×4 (03:49→20:29)
--- NOTE | 2021-05-31 06:00 | NUR ---
6 Addendum: 05/31/21 at 1244 by Kaylene Hammond RN Patient in room ICU 2043. I have received report from Morena BENSON and had the opportunity to ask questions and assume patient care.
--- NOTE | 2021-05-31 06:42 | NUR ---
Problems reprioritized. Patient report given, questions answered & plan of care reviewed with Kaylene BENSON.
[2021-05-31] MEDS: nitroGLYCERIN 0.1mg/hour patch TD SCH (07:24)
[2021-05-31] MEDS: docusate sodium 100mg/10ml UD cup PEG SCH ×2 (07:26→20:26)
[2021-05-31] MEDS: lisinopril 5mg tablet PEG SCH (07:27)
[2021-05-31] MEDS: piperacillin/tazo 3.375gm/50ml 50 ML IV SCH ×2 (07:51→15:21)
[2021-05-31] MEDS: cyclobenzaprine 10mg tablet PO SCH ×2 (07:51→15:21)
[2021-05-31] MEDS: K and/or MAG REPLACEMENT MC SCH ×2 (07:52→20:00)
[2021-05-31] MEDS: lansoprazole 15mg solutab PEG SCH (07:52)
[2021-05-31] MEDS: potassium Cl 20mEq/100mL bag 100 ML IV PRN ×2 (07:52→11:36)
[2021-05-31] MEDS: atorvastatin 20mg tablet PEG SCH (07:52)
[2021-05-31] MEDS: acetylcysteine 200 MG/ml 4ml vial INH SCH (08:04)
[2021-05-31] MEDS ORDERED: VANCOMYCIN LEVEL IV ONE (10:30)
--- NOTE | 2021-05-31 10:40 | NUR ---
F/u 05/31: Pt remains intubated w/ JTF held past 3 days r/t increasing white count pending CT. CT yesterday shows R colon retained stool w/ mild dilated duodenum per EMR; JTF restarted at goal this AM and tolerating. Pt s/p moderate BM this AM following prior at least 4 days constipation. Will continue to monitor for nutrition support tolerance and adjustment needs. Recommendations: 1. Continuous TF via J-tube using Vital AF at 75 ml/hr goal to provide 1800 ml volume/day, 2160 kcal, 1458 ml water, and 135 g protein. 2. Additional 250 mL water flush Q4H per MD; monitor serum Na and need to adjust 3. Prealbumin q Saturday/; Daily scaled weights 4. Routine bowel care Addendum: 05/31/21 at [address] Amended: Links added.
--- NOTE | 2021-05-31 11:52 | NUR ---
PRESSURE ULCER EDUCATION: DEFINITION: A pressure ulcer is an area of skin that breaks down when you stay in one position too long. The constant pressure against the skin reduces the blood flow to that area and the affected tissue dies. CAUSES: "Being bedridden or in a wheelchair "Fragile skin "Having a chronic condition, such as diabetes or vascular disease "Inability to move certain parts of your body without assistance "Older age "Incontinence of urine or stool SYMPTOMS: "A reddened area that DOES NOT turn white when pressed on - this can be the beginning of a pressure ulcer "A blister, deep sore or a crater - these can be advanced pressure ulcers FIRST AID: "Relieve the pressure on this area "Keep the area clean and dry "Call your primary doctor if you see any of the above symptoms "DO NOT massage the area "DO NOT use a donut shaped or ring shaped pillow- these actually interfere with the blood flow and cause complications PREVENTION: "Check for pressure ulcers everyday "Change position at least every two hours to relieve pressure "Use items that help relieve pressure- pillows, sheepskin, foam padding, and powders. "Keep skin clean and dry "Eat healthy well balanced meals "Exercise daily IF YOU SEE ANY OF THESE SYMPTOMS WHILE IN THE HOSPITAL - TELL YOUR NURSE IMMEDIATELY. IF YOU SEE ANY OF THESE SYMPTOMS WHILE AT HOME OR HAVE ANY QUESTIONS OR CONCERNS ABOUT PRESSURE ULCERS - CALL YOUR PRIMARY DOCTOR IMMEDIATELY. Addendum: 05/31/21 at 1153 by Gemma Kaye RN Amended: Links added.
[2021-05-31] MEDS: fluconazole/NS 400mg/200ml bag 200 ML IV SCH (11:54)
[2021-05-31] MEDS: vancomycin/NS 1 GM ADD-VANTAGE 250 ML IV SCH ×2 (12:59→23:55)
[2021-05-31] MEDS: dexmedetomidin/NS 400mcg/100ml 100 ML IV PRN (14:58)
--- NOTE | 2021-05-31 18:16 | NUR ---
Problems reprioritized. Patient report given, questions answered & plan of care reviewed with Mary Jane BENSON.
[2021-05-31] MEDS: gabapentin 300mg capsule PEG SCH (20:26)
[2021-05-31] MEDS: lactobacillus rhamnosus 10,000 MMU CELLS/CAPSULE PO SCH (20:26)
[2021-05-31] MEDS: enoxaparin 40mg/0.4ml syringe SQ SCH (20:27)
[2021-05-31] MEDS: polyethylene glycol 3350 17gm powd pack PO SCH (20:27)
--- NOTE | 2021-05-31 20:35 | NUR ---
kcl replaced by day nurse
[2021-05-31] MEDS: cyclobenzaprine 10mg tablet PO PRN (23:56)
[2021-06-01] VITALS (23 sets, daily range): BP systolic 100–134; BP diastolic 49–82
[2021-06-01] MEDS: piperacillin/tazo 3.375gm/50ml 50 ML IV SCH ×4 (00:56→23:59)
[2021-06-01] MEDS: mineral oil/petrolatum ophthal oint EACHEYE SCH (02:00)
[2021-06-01] MEDS: ipratropium/albuterol 3ml nebule NEB SCH ×4 (03:09→20:48)
[2021-06-01] MEDS: ROPINIRole 1mg tablet PO SCH ×4 (03:30→20:06)
[2021-06-01 04:23] LABS: BASOPHILS # (AUTO) 0.2 X10'3 (0-0.2); BASOPHILS % (AUTO) 1.2 % (0-1); EOSINOPHILS # (AUTO) 1.1 X10'3 (0-0.9); EOSINOPHILS % (AUTO) 7.3 % (0-6); HEMATOCRIT 22.7 % (42.0-52.0); HEMOGLOBIN 7.5 g/dl (14.0-17.9); LYMPHOCYTES # (AUTO) 1.3 X10'3 (1.1-4.8); LYMPHOCYTES % (AUTO) 8.8 % (21-51); MEAN CORPUSCULAR HEMOGLOBIN 30.9 PG (27.0-31.0); MEAN CORPUSCULAR HGB CONC 33.1 g/dL (33.0-36.5); MEAN CORPUSCULAR VOLUME 93.4 FL (78-98); MEAN PLATELET VOLUME 7.7 FL (7.4-10.4); MONOCYTES # (AUTO) 0.8 X10'3 (0-0.9); NEUTROPHILS # (AUTO) 11.8 X10'3 (1.8-7.7); NEUTROPHILS % (AUTO) 77.7 % (42-75); PLATELET COUNT 568 X10'3 (140-440); RED BLOOD COUNT 2.43 X10'6 (4.70-6.10); RED CELL DISTRIBUTION WIDTH 14.5 % (11.5-14.5); WHITE BLOOD COUNT 15.2 X10'3 (4.5-11.0)
[2021-06-01 04:39] LABS: ALANINE AMINOTRANSFERASE 19 U/L (12-78); ALBUMIN 2.2 G/DL (3.4-5.0); ALBUMIN/GLOBULIN RATIO 0.6 (1.1-1.5); ALKALINE PHOSPHATASE 70 IU/L (46-116); ANION GAP 7 (8-16); ASPARTATE AMINO TRANSFERASE 14 U/L (10-37); BILIRUBIN,TOTAL 0.3 MG/DL (0.1-1.0); BLOOD UREA NITROGEN 23 MG/DL (7-18); BUN/CREATININE RATIO 26.4 (5.4-32.0); CALCIUM 8.3 MG/DL (8.5-10.1); CHLORIDE 114 MMOL/L (99-107); CREATININE 0.87 MG/DL (0.60-1.10); GLUCOSE 124 MG/DL (70-104); POTASSIUM 3.4 MMOL/L (3.5-5.1); PREALBUMIN 13.4 MG/DL (19-36); SODIUM 149 MMOL/L (135-145); eGFR 84 ML/MIN
[2021-06-01] MEDS: potassium Cl 20mEq/100mL bag 100 ML IV PRN ×2 (05:00→09:58)
--- NOTE | 2021-06-01 06:30 | NUR ---
Patient in room ICU 2043. I have received report from and had the opportunity to ask questions and assume patient care.
[2021-06-01] MEDS: nitroGLYCERIN 0.1mg/hour patch TD SCH (08:00)
[2021-06-01] MEDS: K and/or MAG REPLACEMENT MC SCH ×2 (08:00→20:00)
[2021-06-01] MEDS: lisinopril 5mg tablet PEG SCH (08:00)
[2021-06-01] MEDS: lactobacillus rhamnosus 10,000 MMU CELLS/CAPSULE PO SCH ×2 (08:22→20:06)
[2021-06-01] MEDS: lansoprazole 15mg solutab PEG SCH (08:22)
[2021-06-01] MEDS: docusate sodium 100mg/10ml UD cup PEG SCH ×2 (08:22→20:06)
[2021-06-01] MEDS: atorvastatin 20mg tablet PEG SCH (08:22)
[2021-06-01 08:58] LABS: MAGNESIUM 2.5 MG/DL (1.5-2.4); PHOSPHORUS 2.5 MG/DL (2.3-4.5)
[2021-06-01] MEDS: cyclobenzaprine 10mg tablet PO PRN (10:37)
--- NOTE | 2021-06-01 11:26 | NUR ---
F/u 06/01: Pt s/p extubation tolerating TF at goal. PALB 13.4 slowly improving even w/ EN being held for 3 day period. Will continue current EN recommendations given DX and monitor for adjustment needs. Addendum: 06/01/21 at [address] Amended: Links added.
[2021-06-01] MEDS: fluconazole/NS 400mg/200ml bag 200 ML IV SCH (11:47)
[2021-06-01] MEDS: vancomycin/NS 1 GM ADD-VANTAGE 250 ML IV SCH ×2 (11:47→23:30)
[2021-06-01] MEDS: bisacodyl 10mg suppository rectal RC SCH (12:00)
--- NOTE | 2021-06-01 12:00 | NUR ---
left ct removed by rivera dyer, ir. dr shah in - updated- will dc left ct later today. Dr heath in- changed drsg on rt ct- kinked under drsg- little output still
[2021-06-01] MEDS: HYDROcodone/acetaminophen 10/325mg tab PO PRN ×2 (13:34→21:08)
--- NOTE | 2021-06-01 16:00 | NUR ---
frequent oral and facial care as per pts request. not skin blistersbroken from tape on rt ct site, in- updated.
[2021-06-01] MEDS: enoxaparin 40mg/0.4ml syringe SQ SCH (20:05)
[2021-06-01] MEDS: gabapentin 300mg capsule PEG SCH (21:08)
[2021-06-01] MEDS: polyethylene glycol 3350 17gm powd pack PO SCH (21:09)
[2021-06-01] MEDS ORDERED: VANCOMYCIN LEVEL IV ONE (22:30)
[2021-06-02] VITALS (23 sets, daily range): BP systolic 90–131; BP diastolic 48–75
[2021-06-02] MEDS: ipratropium/albuterol 3ml nebule NEB SCH ×4 (02:43→19:58)
[2021-06-02] MEDS: ROPINIRole 1mg tablet PO SCH ×2 (02:51→09:25)
--- NOTE | 2021-06-02 06:30 | NUR ---
Patient in room ICU 2043. I have received report from and had the opportunity to ask questions and assume patient care.
--- NOTE | 2021-06-02 06:30 | NUR ---
Patient in room ICU 2043. I have received report from and had the opportunity to ask questions and assume patient care.
[2021-06-02 06:58] LABS: BASOPHILS # (AUTO) 0.2 X10'3 (0-0.2); BASOPHILS % (AUTO) 1.3 % (0-1); EOSINOPHILS # (AUTO) 1.1 X10'3 (0-0.9); EOSINOPHILS % (AUTO) 8.9 % (0-6); HEMATOCRIT 22.6 % (42.0-52.0); HEMOGLOBIN 7.5 g/dl (14.0-17.9); LYMPHOCYTES # (AUTO) 1.8 X10'3 (1.1-4.8); LYMPHOCYTES % (AUTO) 15.2 % (21-51); MEAN CORPUSCULAR HEMOGLOBIN 31.3 PG (27.0-31.0); MEAN CORPUSCULAR HGB CONC 33.3 g/dL (33.0-36.5); MEAN PLATELET VOLUME 7.6 FL (7.4-10.4); MONOCYTES # (AUTO) 0.7 X10'3 (0-0.9); MONOCYTES % (AUTO) 6.2 % (2-12); NEUTROPHILS % (AUTO) 68.4 % (42-75); PLATELET COUNT 549 X10'3 (140-440); RED CELL DISTRIBUTION WIDTH 14.5 % (11.5-14.5); WHITE BLOOD COUNT 11.8 X10'3 (4.5-11.0)
[2021-06-02 07:04] LABS: ALANINE AMINOTRANSFERASE 17 U/L (12-78); ALBUMIN 2.2 G/DL (3.4-5.0); ALBUMIN/GLOBULIN RATIO 0.6 (1.1-1.5); ALKALINE PHOSPHATASE 73 IU/L (46-116); ANION GAP 7 (8-16); ASPARTATE AMINO TRANSFERASE 16 U/L (10-37); BILIRUBIN,TOTAL 0.2 MG/DL (0.1-1.0); BLOOD UREA NITROGEN 23 MG/DL (7-18); BUN/CREATININE RATIO 25.6 (5.4-32.0); CALCIUM 8.4 MG/DL (8.5-10.1); CHLORIDE 114 MMOL/L (99-107); GLUCOSE 114 MG/DL (70-104); MAGNESIUM 2.4 MG/DL (1.5-2.4); PHOSPHORUS 2.6 MG/DL (2.3-4.5); POTASSIUM 3.8 MMOL/L (3.5-5.1); SODIUM 149 MMOL/L (135-145); TOTAL CARBON DIOXIDE 27.7 MMOL/L (24-32); eGFR 80 ML/MIN
[2021-06-02] MEDS: K and/or MAG REPLACEMENT MC SCH ×2 (08:00→20:00)
[2021-06-02] MEDS: docusate sodium 100mg/10ml UD cup PEG SCH ×2 (09:20→20:00)
[2021-06-02] MEDS: nitroGLYCERIN 0.1mg/hour patch TD SCH (09:20)
[2021-06-02] MEDS: atorvastatin 20mg tablet PEG SCH (09:24)
[2021-06-02] MEDS: lansoprazole 15mg solutab PEG SCH (09:25)
[2021-06-02] MEDS: lactobacillus rhamnosus 10,000 MMU CELLS/CAPSULE PO SCH (09:25)
[2021-06-02] MEDS: lisinopril 5mg tablet PEG SCH (09:25)
[2021-06-02] MEDS: cyclobenzaprine 10mg tablet PO PRN (09:25)
[2021-06-02] MEDS: piperacillin/tazo 3.375gm/50ml 50 ML IV SCH ×2 (09:27→16:43)
[2021-06-02] MEDS: VANCOmycin 1250MG/NS 250ml Bag 250 ML IV SCH ×2 (12:00→23:37)
--- NOTE | 2021-06-02 12:00 | NUR ---
UPDATE TO , SIGNIFICANT OTHER BY PHONE. PT AWAKE, MOSTLY WANTS ICE CHIPS, FACE WITH ICE WATER. PT COOPERATIVE, VSS. DR MANCERA IN- OK FOR POPSICLE- ORDERED. WILL LEAVE IN CT ANOTHER DAY OR TWO. PT DANGLED WITH pt- TOLERATED BETTER THAN THE DAY BEFORE. LARGE SOFT BM
[2021-06-02] MEDS: fluconazole/NS 400mg/200ml bag 200 ML IV SCH (13:00)
--- NOTE | 2021-06-02 13:06 | NUR ---
TF Consult: Pt to change to bolus JTF today per traveling secretary request; pt tolerating free water 250ml Q4H w/ 75ml/hr continuous TF at this time. Updated bolus EN recs below; will monitor for bolus feeds tolerance and adjustment needs as medically indicated. GLORY d/w RN regarding signs of EN intolerance and recommends notifying MD if signs of intolerance persist. [facility] 06/01 receiving routine bowel care. Will continue to monitor. Recommendations: 1. Bolus J-tube feeds per traveling secretary using Pivot 1.5 at 275ml goal bolus 5 times daily at 0800,1100,1300,1800,and 2000. Initiate at 125ml bolus and advance by 50ml per bolus to goal as tolerated. In total; to provide 1375ml volume/day, 2063 kcal, 1045ml water, and 129g protein. 2. Additional water flush 72ml before and after each bolus feed with additional 300ml free water daily at 2300 to meet minimum hydration needs 3. Monitor for bolus TF tolerance and adjustment needs 4. Prealbumin q Saturday/; Daily scaled weights 5. Routine bowel care Addendum: 06/02/21 at [address] Amended: Links added. Addendum: 06/02/21 at [address] *CORRECTION* Recommendations: 1. Bolus J-tube feeds per traveling secretary using Pivot 1.5 at 275ml goal bolus 5 times daily at 0800,1100,1400,1700,and 2000. Initiate at 125ml bolus and advance by 50ml per bolus to goal as tolerated. In total; to provide 1375ml volume/day, 2063 kcal, 1045ml water, and 129g protein. 2. Additional water flush 72ml before and after each bolus feed with additional 300ml free water daily at 2300 to meet minimum hydration needs 3. Monitor for bolus TF tolerance and adjustment needs 4. Prealbumin q Saturday/; Daily scaled weights 5. Routine bowel care
--- NOTE | 2021-06-02 13:09 | NUR ---
TF Consult: Pt to change to bolus JTF today per packaging manager request; pt tolerating free water 250ml Q4H w/ 75ml/hr continuous TF at this time. Updated bolus EN recs below; will monitor for bolus feeds tolerance and adjustment needs as medically indicated. GLORY d/w RN regarding signs of EN intolerance and recommends notifying MD if signs of intolerance persist. [facility] 06/01 receiving routine bowel care. Will continue to monitor. Recommendations: 1. Bolus J-tube feeds per packaging manager using Pivot 1.5 at 275ml goal bolus 5 times daily at 0800,1100,1400,1700,and 2000. Initiate at 125ml bolus and advance by 50ml per bolus to goal as tolerated. In total; to provide 1375ml volume/day, 2063 kcal, 1045ml water, and 129g protein. 2. Additional water flush 72ml before and after each bolus feed with additional 300ml free water daily at 2300 to meet minimum hydration needs 3. Monitor for bolus TF tolerance and adjustment needs 4. Prealbumin q Saturday/; Daily scaled weights 5. Routine bowel care Addendum: 06/02/21 at [address] Amended: Links added.
[2021-06-02] MEDS ORDERED: cyclobenzaprine 10mg tablet PEG PRN (14:02)
[2021-06-02] MEDS ORDERED: HYDROcodone/acetaminophen 7.5MG/325MG per 15ml UD CUP PEG PRN ×2 (14:05)
[2021-06-02] MEDS ORDERED: HYDROcodone/acetaminophen 7.5MG/325MG per 15ml UD CUP PO PRN (14:05)
--- NOTE | 2021-06-02 17:00 | NUR ---
BOLUS TF BEGAN.
--- NOTE | 2021-06-02 19:08 | NUR ---
Patient in room ICU 2043. I have received report from Iona BENSON and had the opportunity to ask questions and assume patient care.
[2021-06-02] MEDS: polyethylene glycol 3350 17gm powd pack PEG SCH (21:11)
[2021-06-02] MEDS: lactobacillus rhamnosus 10,000 MMU CELLS/CAPSULE PEG SCH (21:12)
[2021-06-02] MEDS: gabapentin 300mg capsule PEG SCH (21:12)
[2021-06-02] MEDS: ROPINIRole 1mg tablet PEG SCH (21:12)
[2021-06-02] MEDS: enoxaparin 40mg/0.4ml syringe SQ SCH (21:13)
[2021-06-03] VITALS (11 sets, daily range): BP systolic 94–138; BP diastolic 52–84
[2021-06-03] MEDS: ROPINIRole 1mg tablet PEG SCH ×4 (01:58→21:16)
[2021-06-03] MEDS: piperacillin/tazo 3.375gm/50ml 50 ML IV SCH ×4 (01:58→18:54)
[2021-06-03] MEDS: ipratropium/albuterol 3ml nebule NEB SCH ×4 (02:22→20:09)
[2021-06-03 04:39] LABS: BASOPHILS # (AUTO) 0.2 X10'3 (0-0.2); BASOPHILS % (AUTO) 1.7 % (0-1); EOSINOPHILS # (AUTO) 0.9 X10'3 (0-0.9); EOSINOPHILS % (AUTO) 7.3 % (0-6); HEMATOCRIT 22.2 % (42.0-52.0); HEMOGLOBIN 7.5 g/dl (14.0-17.9); LYMPHOCYTES # (AUTO) 1.7 X10'3 (1.1-4.8); LYMPHOCYTES % (AUTO) 14.1 % (21-51); MEAN CORPUSCULAR HEMOGLOBIN 31.2 PG (27.0-31.0); MEAN CORPUSCULAR HGB CONC 33.7 g/dL (33.0-36.5); MEAN CORPUSCULAR VOLUME 92.7 FL (78-98); MEAN PLATELET VOLUME 7.4 FL (7.4-10.4); MONOCYTES # (AUTO) 0.7 X10'3 (0-0.9); MONOCYTES % (AUTO) 5.9 % (2-12); NEUTROPHILS # (AUTO) 8.4 X10'3 (1.8-7.7); PLATELET COUNT 515 X10'3 (140-440); RED CELL DISTRIBUTION WIDTH 14.4 % (11.5-14.5); WHITE BLOOD COUNT 11.8 X10'3 (4.5-11.0)
[2021-06-03 04:55] LABS: ALANINE AMINOTRANSFERASE 23 U/L (12-78); ALBUMIN 2.2 G/DL (3.4-5.0); ALBUMIN/GLOBULIN RATIO 0.6 (1.1-1.5); ALKALINE PHOSPHATASE 70 IU/L (46-116); ANION GAP 8 (8-16); ASPARTATE AMINO TRANSFERASE 22 U/L (10-37); BILIRUBIN,TOTAL 0.3 MG/DL (0.1-1.0); BLOOD UREA NITROGEN 21 MG/DL (7-18); BUN/CREATININE RATIO 25.6 (5.4-32.0); CALCIUM 8.3 MG/DL (8.5-10.1); CHLORIDE 109 MMOL/L (99-107); CREATININE 0.82 MG/DL (0.60-1.10); GLUCOSE 99 MG/DL (70-104); MAGNESIUM 2.3 MG/DL (1.5-2.4); POTASSIUM 3.8 MMOL/L (3.5-5.1); SODIUM 146 MMOL/L (135-145); TOTAL CARBON DIOXIDE 28.8 MMOL/L (24-32); TOTAL PROTEIN 6.1 G/DL (6.4-8.2); eGFR 90 ML/MIN
--- NOTE | 2021-06-03 06:30 | NUR ---
Patient in room PCU 3028. I have received report from judy and had the opportunity to ask questions and assume patient care.
--- NOTE | 2021-06-03 07:00 | NUR ---
report given to kayy in tele- pt transferred by bed to 3028. pt vss. significant other todd notified by voicemail of pts move.
--- NOTE | 2021-06-03 07:03 | NUR ---
Problems reprioritized. Patient report given, questions answered & plan of care reviewed with Iona BENSON.
[2021-06-03] MEDS: K and/or MAG REPLACEMENT MC SCH ×2 (08:00→20:00)
--- NOTE | 2021-06-03 08:25 | NUR ---
Patient in room PCU 3028. I have received report from SEMICONDU[employer] PACKAGES PLATEMAKER Iona and had the opportunity to ask questions and assume patient care.
--- NOTE | 2021-06-03 08:58 | NUR ---
Patient transferred into room and bed. Chest suction functioning and properly moved, tele #23 applied, fluids and abt startedon IV machine, personal items collected and put away. VSS: 134/86, 105 22 95%RA temp 98.5, pain 7/10 and did not want any pain medications. Patient was reposition, SCDS applied. We will continue to monitor.
[2021-06-03] MEDS: fluconazole 40mg/ml oral suspension 35ml bottle PEG SCH (09:54)
[2021-06-03] MEDS: docusate sodium 100mg/10ml UD cup PEG SCH ×2 (09:55→20:00)
[2021-06-03] MEDS: lansoprazole 15mg solutab PEG SCH (09:56)
[2021-06-03] MEDS: lisinopril 5mg tablet PEG SCH (09:56)
[2021-06-03] MEDS: lactobacillus rhamnosus 10,000 MMU CELLS/CAPSULE PEG SCH ×2 (09:58→21:17)
[2021-06-03] MEDS: atorvastatin 20mg tablet PEG SCH (10:03)
[2021-06-03] MEDS: VANCOmycin 1250MG/NS 250ml Bag 250 ML IV SCH ×2 (13:30→23:51)
--- NOTE | 2021-06-03 17:22 | NUR ---
Messaged Pharmacy Please send pts Zosyn. Not in fridge Thank you Steph BENSON [phone]
[2021-06-03] MEDS: polyethylene glycol 3350 17gm powd pack PEG SCH (21:00)
[2021-06-03] MEDS: gabapentin 300mg capsule PEG SCH (21:16)
[2021-06-03] MEDS: enoxaparin 40mg/0.4ml syringe SQ SCH (21:18)
[2021-06-03] MEDS: loperamide 2mg capsule PO PRN (22:29)
[2021-06-03] MEDS ORDERED: VANCOMYCIN LEVEL IV ONE ×2 (22:30)
[2021-06-04] MEDS: temazepam 15mg capsule PEG PRN (00:27)
[2021-06-04] MEDS: ROPINIRole 1mg tablet PEG SCH ×4 (01:38→21:19)
[2021-06-04 02:00] VITALS: BP 121/68
[2021-06-04] MEDS: ipratropium/albuterol 3ml nebule NEB SCH ×4 (03:00→19:42)
[2021-06-04] MEDS: loperamide 2mg capsule PO PRN ×2 (04:46→12:37)
--- NOTE | 2021-06-04 07:16 | NUR ---
Problems reprioritized. Patient report given, questions answered & plan of care reviewed with Amrik BENSON.
[2021-06-04] MEDS: docusate sodium 100mg/10ml UD cup PEG SCH ×2 (08:00→20:00)
[2021-06-04] MEDS: K and/or MAG REPLACEMENT MC SCH ×2 (08:00→20:00)
[2021-06-04] MEDS: VANCOmycin 1250MG/NS 250ml Bag 250 ML IV SCH ×2 (10:22→22:24)
[2021-06-04] MEDS: fluconazole 40mg/ml oral suspension 35ml bottle PEG SCH (10:22)
[2021-06-04] MEDS: piperacillin/tazo 3.375gm/50ml 50 ML IV SCH ×2 (10:22→17:09)
[2021-06-04] MEDS: atorvastatin 20mg tablet PEG SCH (10:23)
[2021-06-04] MEDS: lactobacillus rhamnosus 10,000 MMU CELLS/CAPSULE PEG SCH ×2 (10:27→21:18)
[2021-06-04] MEDS: lansoprazole 15mg solutab PEG SCH (10:27)
[2021-06-04] MEDS: lisinopril 5mg tablet PEG SCH (10:27)
[2021-06-04] MEDS: bisacodyl 10mg suppository rectal RC SCH (10:33)
[2021-06-04 11:00] VITALS: BP 129/76
--- NOTE | 2021-06-04 11:11 | NUR ---
Reassessment: Pt now at goal w/ bolus feedings via J-tube using Pivot 1.5 at 275ml/bolus 5x/day w/ additional 72ml water flush before and after each feed w/ no signs of intolerance reported per EMR. LBM 06/03 w/ routine bowel care held and PRN imodium given. No change to recommendations at this time, will continue to monitor. Recommendations: 1. Bolus J-tube feeds per merchandise planning manager using Pivot 1.5 at 275ml goal bolus 5 times daily at 0800,1100,1400,1700,and 2000. Initiate at 125ml bolus and advance by 50ml per bolus to goal as tolerated. In total; to provide 1375ml volume/day, 2063 kcal, 1045ml water, and 129g protein. 2. Additional water flush 72ml before and after each bolus feed with additional 300ml free water daily at 2300 to meet minimum hydration needs 3. Monitor for bolus TF tolerance and adjustment needs 4. Prealbumin q Saturday/; Daily scaled weights 5. Bowel care per rx Addendum: 06/04/21 at [address] Amended: Links added.
[2021-06-04 15:00] VITALS: BP 115/61
[2021-06-04 18:00] VITALS: BP 103/60
[2021-06-04] MEDS: polyethylene glycol 3350 17gm powd pack PEG SCH (21:00)
[2021-06-04] MEDS: gabapentin 300mg capsule PEG SCH (21:19)
[2021-06-04] MEDS: enoxaparin 40mg/0.4ml syringe SQ SCH (21:19)
[2021-06-04 22:00] VITALS: BP 102/58
[2021-06-04] MEDS ORDERED: VANCOMYCIN LEVEL IV ONE (22:30)
[2021-06-04 22:40] LABS: VANCOMYCIN,TROUGH 18.2 UG/ML (6.0-14.0)
[2021-06-05] MEDS: piperacillin/tazo 3.375gm/50ml 50 ML IV SCH ×4 (00:43→23:36)
[2021-06-05 02:00] VITALS: BP 110/70
[2021-06-05] MEDS: ROPINIRole 1mg tablet PEG SCH ×4 (02:00→20:59)
[2021-06-05] MEDS: ipratropium/albuterol 3ml nebule NEB SCH ×4 (03:07→21:09)
[2021-06-05 06:00] VITALS: BP 112/68
[2021-06-05] MEDS: atorvastatin 20mg tablet PEG SCH (07:45)
[2021-06-05] MEDS: lactobacillus rhamnosus 10,000 MMU CELLS/CAPSULE PEG SCH ×2 (07:45→20:58)
[2021-06-05] MEDS: docusate sodium 100mg/10ml UD cup PEG SCH ×2 (07:45→16:51)
[2021-06-05] MEDS: lansoprazole 15mg solutab PEG SCH (07:45)
[2021-06-05] MEDS: lisinopril 5mg tablet PEG SCH (07:46)
[2021-06-05] MEDS: K and/or MAG REPLACEMENT MC SCH ×2 (08:00→21:02)
[2021-06-05 11:00] VITALS: BP 110/54
[2021-06-05 11:31] LABS: PREALBUMIN 12.8 MG/DL (19-36)
[2021-06-05] MEDS: VANCOmycin 1250MG/NS 250ml Bag 250 ML IV SCH ×2 (13:12→23:35)
[2021-06-05] MEDS: fluconazole 40mg/ml oral suspension 35ml bottle PEG SCH (13:12)
--- NOTE | 2021-06-05 16:46 | NUR ---
Rectal tube was found completely out as the liquid stool flooded on the bed. Linens and patient gown changed. Inserted a new rectal tube into the patient's rectum, tolerated the procedure.
[2021-06-05 17:00] VITALS: BP 113/59
[2021-06-05 18:00] VITALS: BP 117/67
--- NOTE | 2021-06-05 18:32 | NUR ---
Patient in PCU room 3028A. I have received report from MARCELINO Valadez and had the opportunity to ask questions and assume patient care.
[2021-06-05] MEDS: gabapentin 300mg capsule PEG SCH (20:58)
[2021-06-05] MEDS: polyethylene glycol 3350 17gm powd pack PEG SCH (21:00)
[2021-06-05] MEDS: enoxaparin 40mg/0.4ml syringe SQ SCH (21:00)
[2021-06-06 02:00] VITALS: BP 139/77
[2021-06-06] MEDS: ROPINIRole 1mg tablet PEG SCH ×4 (02:00→19:55)
[2021-06-06] MEDS: ipratropium/albuterol 3ml nebule NEB SCH ×4 (03:11→21:34)
[2021-06-06 06:00] VITALS: BP 139/75
[2021-06-06 06:12] LABS: BASOPHILS # (AUTO) 0.1 X10'3 (0-0.2); BASOPHILS % (AUTO) 1.1 % (0-1); EOSINOPHILS # (AUTO) 0.8 X10'3 (0-0.9); EOSINOPHILS % (AUTO) 5.9 % (0-6); HEMATOCRIT 25.5 % (42.0-52.0); HEMOGLOBIN 8.5 g/dl (14.0-17.9); LYMPHOCYTES # (AUTO) 1.4 X10'3 (1.1-4.8); LYMPHOCYTES % (AUTO) 10.8 % (21-51); MEAN CORPUSCULAR HEMOGLOBIN 30.8 PG (27.0-31.0); MEAN CORPUSCULAR HGB CONC 33.3 g/dL (33.0-36.5); MEAN CORPUSCULAR VOLUME 92.5 FL (78-98); MEAN PLATELET VOLUME 7.2 FL (7.4-10.4); MONOCYTES % (AUTO) 8.2 % (2-12); NEUTROPHILS # (AUTO) 9.4 X10'3 (1.8-7.7); PLATELET COUNT 476 X10'3 (140-440); RED BLOOD COUNT 2.76 X10'6 (4.70-6.10); RED CELL DISTRIBUTION WIDTH 14.2 % (11.5-14.5); WHITE BLOOD COUNT 12.7 X10'3 (4.5-11.0)
[2021-06-06 06:13] LABS: ALBUMIN 2.4 G/DL (3.4-5.0); ANION GAP 11 (8-16); BLOOD UREA NITROGEN 16 MG/DL (7-18); BUN/CREATININE RATIO 19.3 (5.4-32.0); CALCIUM 8.6 MG/DL (8.5-10.1); CHLORIDE 111 MMOL/L (99-107); CREATININE 0.83 MG/DL (0.60-1.10); GLUCOSE 121 MG/DL (70-104); SODIUM 149 MMOL/L (135-145); TOTAL CARBON DIOXIDE 26.8 MMOL/L (24-32); eGFR 88 ML/MIN
--- NOTE | 2021-06-06 06:32 | NUR ---
Patient in room PCU 3028. I have received report from Josefina ruiz and had the opportunity to ask questions and assume patient care.
--- NOTE | 2021-06-06 06:33 | NUR ---
Problems reprioritized. Patient report given, questions answered & plan of care reviewed with MARCELINO Ulloa.
[2021-06-06] MEDS: piperacillin/tazo 3.375gm/50ml 50 ML IV SCH ×3 (07:42→23:29)
[2021-06-06] MEDS: lisinopril 5mg tablet PEG SCH (07:44)
[2021-06-06] MEDS: potassium Cl 20 mEq SR tablet PEG PRN ×2 (07:44→11:40)
[2021-06-06] MEDS: lansoprazole 15mg solutab PEG SCH (07:44)
[2021-06-06] MEDS: atorvastatin 20mg tablet PEG SCH (07:44)
[2021-06-06] MEDS: docusate sodium 100mg/10ml UD cup PEG SCH ×2 (08:00→19:54)
[2021-06-06] MEDS: K and/or MAG REPLACEMENT MC SCH ×2 (08:01→20:00)
[2021-06-06] MEDS: lactobacillus rhamnosus 10,000 MMU CELLS/CAPSULE PEG SCH ×2 (08:01→19:55)
[2021-06-06] MEDS: fluconazole 40mg/ml oral suspension 35ml bottle PEG SCH (10:39)
[2021-06-06 11:04] VITALS: BP 119/60
[2021-06-06] MEDS: VANCOmycin 1250MG/NS 250ml Bag 250 ML IV SCH (11:40)
[2021-06-06] MEDS: acetaminophen 325mg/10.15ml oral unit dose solution PEG PRN (14:03)
--- NOTE | 2021-06-06 14:36 | NUR ---
Medicated patient with childrens tylenol through J tube for temperature of 99.8 axillary.
[2021-06-06 15:23] VITALS: BP 126/60
[2021-06-06 18:00] VITALS: BP 112/65
--- NOTE | 2021-06-06 18:29 | NUR ---
Problems reprioritized. Patient report given, questions answered & plan of care reviewed with Tayla BENSON.
[2021-06-06] MEDS: polyethylene glycol 3350 17gm powd pack PEG SCH (19:53)
[2021-06-06] MEDS: gabapentin 300mg capsule PEG SCH (19:55)
[2021-06-06] MEDS: enoxaparin 40mg/0.4ml syringe SQ SCH (20:20)
[2021-06-06 22:00] VITALS: BP 117/61
[2021-06-07] MEDS: ROPINIRole 1mg tablet PEG SCH ×4 (01:33→20:10)
[2021-06-07] MEDS: ipratropium/albuterol 3ml nebule NEB SCH ×4 (02:58→21:41)
[2021-06-07] MEDS: potassium Cl 20 mEq SR tablet PEG PRN ×3 (03:35→20:20)
[2021-06-07 06:00] VITALS: BP 136/80
--- NOTE | 2021-06-07 06:25 | NUR ---
received report from joseph st
[2021-06-07] MEDS: K and/or MAG REPLACEMENT MC SCH ×2 (08:00→20:00)
--- NOTE | 2021-06-07 08:00 | NUR ---
unable to obtain pts daily wt at this time
[2021-06-07] MEDS: docusate sodium 100mg/10ml UD cup PEG SCH ×2 (08:54→20:00)
[2021-06-07] MEDS: lansoprazole 15mg solutab PEG SCH (08:55)
[2021-06-07] MEDS: atorvastatin 20mg tablet PEG SCH (08:55)
[2021-06-07] MEDS: lactobacillus rhamnosus 10,000 MMU CELLS/CAPSULE PEG SCH ×2 (08:55→20:10)
[2021-06-07] MEDS: lisinopril 5mg tablet PEG SCH (08:56)
[2021-06-07] MEDS: piperacillin/tazo 3.375gm/50ml 50 ML IV SCH ×3 (09:06→23:10)
[2021-06-07] MEDS: fluconazole 40mg/ml oral suspension 35ml bottle PEG SCH (09:09)
[2021-06-07 11:00] VITALS: BP 133/72
[2021-06-07] MEDS: bisacodyl 10mg suppository rectal RC SCH (11:41)
[2021-06-07 15:00] VITALS: BP 122/59
--- NOTE | 2021-06-07 18:15 | NUR ---
gave report to joseph st
--- NOTE | 2021-06-07 19:27 | NUR ---
PAGER ID: [phone] MESSAGE: [phone] needs to have staple taken out from torso. can he have morphine before please? thank you. [phone] Tayla
[2021-06-07] MEDS ORDERED: morphine 2 MG/ML inj. syringe IV PRN (19:50)
[2021-06-07] MEDS: enoxaparin 40mg/0.4ml syringe SQ SCH (20:10)
[2021-06-07] MEDS: gabapentin 300mg capsule PEG SCH (20:10)
[2021-06-07] MEDS: polyethylene glycol 3350 17gm powd pack PEG SCH (20:29)
--- NOTE | 2021-06-07 20:49 | NUR ---
removed jordan from 18 abd jordan and 30 right thoracic jordan. redness to the thoracic sites. no drainage. premedicated with morphine. pt tolerated well.
[2021-06-07 22:00] VITALS: BP 95/54
[2021-06-08] MEDS: ROPINIRole 1mg tablet PEG SCH ×4 (01:35→20:31)
[2021-06-08 02:00] VITALS: BP 119/62
[2021-06-08] MEDS: ipratropium/albuterol 3ml nebule NEB SCH ×4 (02:47→21:27)
[2021-06-08 06:00] VITALS: BP 134/80
[2021-06-08 06:19] LABS: BASOPHILS # (AUTO) 0.2 X10'3 (0-0.2); BASOPHILS % (AUTO) 1.2 % (0-1); EOSINOPHILS # (AUTO) 0.7 X10'3 (0-0.9); EOSINOPHILS % (AUTO) 5.2 % (0-6); HEMATOCRIT 26.6 % (42.0-52.0); HEMOGLOBIN 8.8 g/dl (14.0-17.9); LYMPHOCYTES # (AUTO) 1.5 X10'3 (1.1-4.8); LYMPHOCYTES % (AUTO) 11.1 % (21-51); MEAN CORPUSCULAR HEMOGLOBIN 30.7 PG (27.0-31.0); MEAN CORPUSCULAR VOLUME 93.2 FL (78-98); MONOCYTES # (AUTO) 0.9 X10'3 (0-0.9); MONOCYTES % (AUTO) 6.7 % (2-12); NEUTROPHILS % (AUTO) 75.8 % (42-75); PLATELET COUNT 458 X10'3 (140-440); RED BLOOD COUNT 2.85 X10'6 (4.70-6.10); RED CELL DISTRIBUTION WIDTH 14.6 % (11.5-14.5); WHITE BLOOD COUNT 13.2 X10'3 (4.5-11.0)
--- NOTE | 2021-06-08 06:23 | NUR ---
Problems reprioritized. Patient report given, questions answered & plan of care reviewed with MARCELINO GREENE.
[2021-06-08 06:26] LABS: ALBUMIN 2.5 G/DL (3.4-5.0); ANION GAP 5 (8-16); BLOOD UREA NITROGEN 23 MG/DL (7-18); BUN/CREATININE RATIO 26.4 (5.4-32.0); CALCIUM 8.7 MG/DL (8.5-10.1); CHLORIDE 115 MMOL/L (99-107); CREATININE 0.87 MG/DL (0.60-1.10); GLUCOSE 163 MG/DL (70-104); POTASSIUM 3.4 MMOL/L (3.5-5.1); PREALBUMIN 12.5 MG/DL (19-36); SODIUM 151 MMOL/L (135-145); TOTAL CARBON DIOXIDE 30.6 MMOL/L (24-32); eGFR 83 ML/MIN
[2021-06-08] MEDS: K and/or MAG REPLACEMENT MC SCH ×2 (08:00→20:00)
[2021-06-08] MEDS: docusate sodium 100mg/10ml UD cup PEG SCH ×2 (08:00→20:00)
[2021-06-08] MEDS: lactobacillus rhamnosus 10,000 MMU CELLS/CAPSULE PEG SCH ×2 (08:40→20:31)
[2021-06-08] MEDS: lansoprazole 15mg solutab PEG SCH (08:40)
[2021-06-08] MEDS: atorvastatin 20mg tablet PEG SCH (08:40)
[2021-06-08] MEDS: lisinopril 5mg tablet PEG SCH (08:41)
[2021-06-08] MEDS: piperacillin/tazo 3.375gm/50ml 50 ML IV SCH ×3 (08:42→23:46)
[2021-06-08] MEDS: potassium Cl 20 mEq SR tablet PEG PRN ×3 (08:48→17:25)
[2021-06-08] MEDS: fluconazole/NS 400mg/200ml bag 200 ML IV SCH (09:52)
[2021-06-08 11:00] VITALS: BP 119/74
--- NOTE | 2021-06-08 13:51 | NUR ---
F/u 06/08: Pt tolerating bolus J-tube feeds at goal. Noted serum Na 151 mmol/L this AM s/p rectal tube placement 06/03 w/ 800ml stool output yesterday and 500ml day prior per EMR. Diarrhea possibly impacting serum Na in addition to documented free water provision in EMR less than RD recs below; unsure of accuracy. Bowel regimen has been held since 06/02 and pt did receive PRN imodium /[address] d/w RN who reports pt has no signs of EN intolerance at this time, confirms appropriate free water flushes, and is agreeable to d/w MD regarding making imodium routine given stool output. Current EN formula is not hyperosmolar though likely will take time for Jejunum to adapt to bolus volumes. Pt septic shock resolved per ID MD note; updated estimated needs below though no changes to EN recs at this time. Will continue to monitor for EN tolerance and adjustment needs as medically indicated. Recommendations: 1. Bolus J-tube feeds per netsuite developer using Pivot 1.5 at 275ml goal bolus 5 times daily at 0800,1100,1400,1700,and 2000. Initiate at 125ml bolus and advance by 50ml per bolus to goal as tolerated. In total; to provide 1375ml volume/day, 2063 kcal, 1045ml water, and 129g protein. 2. Additional water flush 72ml before and after each bolus feed with additional 300ml free water daily at 2300 to meet minimum hydration needs 3. Monitor for bolus TF tolerance and adjustment needs 4. Prealbumin q Saturday/; Daily scaled weights 5. consider routine anti-diarrheal if MD agreeable given 500ml-800ml rectal tube output per EMR; likely will take time for Jejunum to adapt to bolus volumes Addendum: 06/08/21 at [address] Amended: Links added.
[2021-06-08 15:00] VITALS: BP 123/70
[2021-06-08 18:00] VITALS: BP 126/75
--- NOTE | 2021-06-08 18:35 | NUR ---
Problems reprioritized. Patient report given, questions answered & plan of care reviewed with Caroline BENSON.
[2021-06-08] MEDS: polyethylene glycol 3350 17gm powd pack PEG SCH (20:26)
[2021-06-08] MEDS: gabapentin 300mg capsule PEG SCH (20:31)
[2021-06-08] MEDS: enoxaparin 40mg/0.4ml syringe SQ SCH (20:32)
[2021-06-08 22:00] VITALS: BP 144/86
[2021-06-09 02:00] VITALS: BP 121/71
[2021-06-09] MEDS: ipratropium/albuterol 3ml nebule NEB SCH ×4 (02:35→20:23)
[2021-06-09] MEDS: loperamide 2mg capsule PO PRN ×2 (03:06→13:26)
[2021-06-09] MEDS: ROPINIRole 1mg tablet PEG SCH ×4 (03:07→21:27)
[2021-06-09 06:00] VITALS: BP 136/80
[2021-06-09 07:37] LABS: BASOPHILS # (AUTO) 0.2 X10'3 (0-0.2); BASOPHILS % (AUTO) 1.2 % (0-1); EOSINOPHILS # (AUTO) 0.5 X10'3 (0-0.9); EOSINOPHILS % (AUTO) 3.6 % (0-6); HEMATOCRIT 24.9 % (42.0-52.0); HEMOGLOBIN 8.3 g/dl (14.0-17.9); LYMPHOCYTES # (AUTO) 1.4 X10'3 (1.1-4.8); LYMPHOCYTES % (AUTO) 10.3 % (21-51); MEAN CORPUSCULAR HEMOGLOBIN 30.8 PG (27.0-31.0); MEAN CORPUSCULAR HGB CONC 33.5 g/dL (33.0-36.5); MEAN CORPUSCULAR VOLUME 92.1 FL (78-98); MEAN PLATELET VOLUME 6.7 FL (7.4-10.4); MONOCYTES % (AUTO) 7.1 % (2-12); NEUTROPHILS # (AUTO) 10.5 X10'3 (1.8-7.7); NEUTROPHILS % (AUTO) 77.8 % (42-75); PLATELET COUNT 415 X10'3 (140-440); RED CELL DISTRIBUTION WIDTH 14.7 % (11.5-14.5); WHITE BLOOD COUNT 13.5 X10'3 (4.5-11.0)
[2021-06-09 07:50] LABS: ALANINE AMINOTRANSFERASE 22 U/L (12-78); ALBUMIN 2.4 G/DL (3.4-5.0); ALBUMIN/GLOBULIN RATIO 0.6 (1.1-1.5); ALKALINE PHOSPHATASE 78 IU/L (46-116); ANION GAP 6 (8-16); ASPARTATE AMINO TRANSFERASE 23 U/L (10-37); BILIRUBIN,TOTAL 0.2 MG/DL (0.1-1.0); BLOOD UREA NITROGEN 23 MG/DL (7-18); CALCIUM 8.8 MG/DL (8.5-10.1); CHLORIDE 115 MMOL/L (99-107); CREATININE 0.82 MG/DL (0.60-1.10); GLUCOSE 132 MG/DL (70-104); POTASSIUM 3.9 MMOL/L (3.5-5.1); SODIUM 152 MMOL/L (135-145); TOTAL CARBON DIOXIDE 30.7 MMOL/L (24-32); TOTAL PROTEIN 6.4 G/DL (6.4-8.2); eGFR 89 ML/MIN
[2021-06-09] MEDS: K and/or MAG REPLACEMENT MC SCH ×2 (08:00→18:58)
[2021-06-09] MEDS: docusate sodium 100mg/10ml UD cup PEG SCH (08:00)
[2021-06-09] MEDS: lansoprazole 15mg solutab PEG SCH (08:49)
[2021-06-09] MEDS: fluconazole/NS 400mg/200ml bag 200 ML IV SCH (08:49)
[2021-06-09] MEDS: piperacillin/tazo 3.375gm/50ml 50 ML IV SCH ×2 (08:49→16:57)
[2021-06-09] MEDS: lisinopril 5mg tablet PEG SCH (08:50)
[2021-06-09] MEDS: atorvastatin 20mg tablet PEG SCH (08:50)
[2021-06-09] MEDS: lactobacillus rhamnosus 10,000 MMU CELLS/CAPSULE PEG SCH ×2 (08:50→21:27)
[2021-06-09 11:00] VITALS: BP 123/73
[2021-06-09] MEDS: dextrose 5%-water 1,000 ML IV SCH ×2 (11:16→18:50)
--- NOTE | 2021-06-09 14:59 | NUR ---
PAGER ID: [phone] MESSAGE: [phone] Martínez Douglas- Lots of diarrhea. Rectal tube re-inserted. Marleni [phone]
[2021-06-09 15:00] VITALS: BP 131/77
--- NOTE | 2021-06-09 15:02 | NUR ---
Rectal tube was discontinued 0900 because there was no diarrhea output for 24 hours. However patient had two large diarrhea episodes today so rectal tube was re-inserted. Physician notified. Order placed to DC stool softener and place a schedule dose of Imodium for a day and continue with PRN Imodium after
[2021-06-09 18:00] VITALS: BP 140/83
--- NOTE | 2021-06-09 18:17 | NUR ---
Problems reprioritized. Patient report given, questions answered & plan of care reviewed with Gila BENSON.
[2021-06-09] MEDS: polyethylene glycol 3350 17gm powd pack PEG SCH (19:00)
[2021-06-09] MEDS ORDERED: loperamide 2mg capsule PO ONE (21:00)
[2021-06-09] MEDS: gabapentin 300mg capsule PEG SCH (21:28)
[2021-06-09] MEDS: enoxaparin 40mg/0.4ml syringe SQ SCH (21:28)
[2021-06-09 22:00] VITALS: BP 130/74
[2021-06-10] MEDS: ROPINIRole 1mg tablet PEG SCH ×4 (01:28→20:47)
[2021-06-10 02:00] VITALS: BP 109/65
[2021-06-10] MEDS: ipratropium/albuterol 3ml nebule NEB SCH ×4 (02:33→20:29)
[2021-06-10 03:24] LABS: BASOPHILS # (AUTO) 0.1 X10'3 (0-0.2); BASOPHILS % (AUTO) 1.1 % (0-1); EOSINOPHILS # (AUTO) 0.9 X10'3 (0-0.9); EOSINOPHILS % (AUTO) 7.3 % (0-6); HEMATOCRIT 22.8 % (42.0-52.0); HEMOGLOBIN 7.6 g/dl (14.0-17.9); LYMPHOCYTES # (AUTO) 1.9 X10'3 (1.1-4.8); LYMPHOCYTES % (AUTO) 15.4 % (21-51); MEAN CORPUSCULAR HEMOGLOBIN 30.7 PG (27.0-31.0); MEAN CORPUSCULAR HGB CONC 33.2 g/dL (33.0-36.5); MEAN CORPUSCULAR VOLUME 92.4 FL (78-98); MEAN PLATELET VOLUME 7.1 FL (7.4-10.4); MONOCYTES # (AUTO) 0.9 X10'3 (0-0.9); MONOCYTES % (AUTO) 7.4 % (2-12); NEUTROPHILS # (AUTO) 8.4 X10'3 (1.8-7.7); NEUTROPHILS % (AUTO) 68.8 % (42-75); PLATELET COUNT 340 X10'3 (140-440); RED BLOOD COUNT 2.47 X10'6 (4.70-6.10); RED CELL DISTRIBUTION WIDTH 14.8 % (11.5-14.5); WHITE BLOOD COUNT 12.2 X10'3 (4.5-11.0)
[2021-06-10 03:42] LABS: ALANINE AMINOTRANSFERASE 25 U/L (12-78); ALBUMIN 2.2 G/DL (3.4-5.0); ALBUMIN/GLOBULIN RATIO 0.6 (1.1-1.5); ALKALINE PHOSPHATASE 74 IU/L (46-116); ANION GAP 5 (8-16); ASPARTATE AMINO TRANSFERASE 15 U/L (10-37); BILIRUBIN,TOTAL 0.2 MG/DL (0.1-1.0); BLOOD UREA NITROGEN 21 MG/DL (7-18); BUN/CREATININE RATIO 25.3 (5.4-32.0); CALCIUM 7.9 MG/DL (8.5-10.1); CHLORIDE 103 MMOL/L (99-107); CREATININE 0.83 MG/DL (0.60-1.10); GLUCOSE 308 MG/DL (70-104); POTASSIUM 3.6 MMOL/L (3.5-5.1); SODIUM 138 MMOL/L (135-145); TOTAL CARBON DIOXIDE 29.6 MMOL/L (24-32); TOTAL PROTEIN 5.7 G/DL (6.4-8.2); eGFR 88 ML/MIN
[2021-06-10] MEDS: dextrose 5%-water 1,000 ML IV SCH (04:50)
[2021-06-10 06:00] VITALS: BP 118/69
[2021-06-10] MEDS: K and/or MAG REPLACEMENT MC SCH ×2 (08:00→19:12)
[2021-06-10] MEDS: atorvastatin 20mg tablet PEG SCH (08:54)
[2021-06-10] MEDS: piperacillin/tazo 3.375gm/50ml 50 ML IV SCH ×3 (08:54→17:03)
[2021-06-10] MEDS: lansoprazole 15mg solutab PEG SCH (08:54)
[2021-06-10] MEDS: fluconazole/NS 400mg/200ml bag 200 ML IV SCH (08:54)
[2021-06-10] MEDS: lactobacillus rhamnosus 10,000 MMU CELLS/CAPSULE PEG SCH ×2 (08:54→20:48)
[2021-06-10] MEDS: lisinopril 5mg tablet PEG SCH (08:55)
[2021-06-10 11:00] VITALS: BP 122/65
[2021-06-10] MEDS: bisacodyl 10mg suppository rectal RC SCH (11:24)
[2021-06-10] MEDS: loperamide 2mg capsule PO PRN (11:25)
--- NOTE | 2021-06-10 13:03 | NUR ---
Received TC from RN regarding patient's nutrition. Per RN pt has been receiving bolus TF Q4H. RD clarified that order is for pt to receive bolus TF 5 times a day. Per RN pt appears to be tolerating TF as pt with no abdominal distention however pt with diarrhea quickly following TF admin and stool consistency appears to be mostly TF. Pt received routine antidiarrheal 06/09 and continues to receive it PRN as physician does not want routine antidiarrheal per RN. D/w RN that if pt continues with high stool output following bolus TF pt may benefit from returning to continuous TF as pt was previously tolerating with no diarrhea. Will continue to follow closely. Recommendations: 1. Bolus J-tube feeds per drawer in using Pivot 1.5 at 275ml goal bolus 5 times daily at 0800,1100,1400,1700,and 2000. Initiate at 125ml bolus and advance by 50ml per bolus to goal as tolerated. In total to provide 1375 ml volume/day, 2063 kcal, 1045 ml water, and 129g protein. 2. Additional 72 mL water flush before and after each bolus feed with additional 300 ml free water daily at 2300 to meet minimum hydration needs; monitor serum Na and need to adjust 3. Monitor for bolus TF tolerance and adjustment needs; consider returning to continuous TF if pt continues with high stool output with TF appearance 4. Prealbumin q Saturday/ 5. Daily scaled weights 6. Continue PRN anti-diarrheal given continuous diarrhea requiring rectal tube; likely will take time for jejunum to adapt to bolus volumes Addendum: 06/10/21 at [address] Amended: Links added.
[2021-06-10 15:00] VITALS: BP 108/62
--- NOTE | 2021-06-10 15:03 | NUR ---
TF consult: Pt to transition to continuous TF per physician, see updated recommendations below. Recommendations: 1. Continuous TF via J-tube using Pivot 1.5 with 60 mL/hr goal rate to provide 1440 mL total volume/day, 2160 kcal, 135 g protein, and 1093 mL water 2. Additional 175 mL water flush Q4H; monitor serum Na and need to adjust 3. Prealbumin q Saturday/ 4. Daily scaled weights 5. Continue PRN anti-diarrheal given continuous diarrhea requiring rectal tube Addendum: 06/10/21 at [address] Amended: Links added.
[2021-06-10 18:00] VITALS: BP 112/64
--- NOTE | 2021-06-10 18:06 | NUR ---
Problems reprioritized. Patient report given, questions answered & plan of care reviewed with Gila BENSON.
[2021-06-10] MEDS: enoxaparin 40mg/0.4ml syringe SQ SCH (20:46)
[2021-06-10] MEDS: gabapentin 300mg capsule PEG SCH (20:48)
[2021-06-10] MEDS: polyethylene glycol 3350 17gm powd pack PEG SCH (20:49)
[2021-06-10 22:00] VITALS: BP 105/63
[2021-06-11] MEDS: piperacillin/tazo 3.375gm/50ml 50 ML IV SCH ×3 (01:01→16:45)
[2021-06-11 02:00] VITALS: BP 93/57
[2021-06-11] MEDS: ipratropium/albuterol 3ml nebule NEB SCH ×4 (02:23→21:00)
[2021-06-11] MEDS: ROPINIRole 1mg tablet PEG SCH ×4 (03:14→19:59)
[2021-06-11] MEDS: temazepam 15mg capsule PEG PRN (05:29)
[2021-06-11 06:00] VITALS: BP 107/61
[2021-06-11 06:42] LABS: HEMOGLOBIN 8.7 g/dl (14.0-17.9); MEAN CORPUSCULAR HEMOGLOBIN 30.4 PG (27.0-31.0); RED BLOOD COUNT 2.87 X10'6 (4.70-6.10)
[2021-06-11 06:46] LABS: BASOPHILS # (AUTO) 0.1 X10'3 (0-0.2); EOSINOPHILS # (AUTO) 1.2 X10'3 (0-0.9); EOSINOPHILS % (AUTO) 8.9 % (0-6); HEMATOCRIT 26.1 % (42.0-52.0); LYMPHOCYTES # (AUTO) 1.8 X10'3 (1.1-4.8); LYMPHOCYTES % (AUTO) 13.2 % (21-51); MEAN CORPUSCULAR HGB CONC 33.4 g/dL (33.0-36.5); MONOCYTES # (AUTO) 0.7 X10'3 (0-0.9); MONOCYTES % (AUTO) 5.6 % (2-12); NEUTROPHILS # (AUTO) 9.5 X10'3 (1.8-7.7); NEUTROPHILS % (AUTO) 71.3 % (42-75); PLATELET COUNT 330 X10'3 (140-440); RED CELL DISTRIBUTION WIDTH 14.5 % (11.5-14.5); WHITE BLOOD COUNT 13.3 X10'3 (4.5-11.0)
--- NOTE | 2021-06-11 07:30 | NUR ---
HOB Education Pt. 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 Becky Kline RN
[2021-06-11] MEDS: fluconazole/NS 400mg/200ml bag 200 ML IV SCH (07:42)
[2021-06-11] MEDS: atorvastatin 20mg tablet PEG SCH (07:47)
[2021-06-11] MEDS: lansoprazole 15mg solutab PEG SCH (07:48)
[2021-06-11] MEDS: lisinopril 5mg tablet PEG SCH (07:48)
[2021-06-11] MEDS: lactobacillus rhamnosus 10,000 MMU CELLS/CAPSULE PEG SCH ×2 (07:48→19:58)
[2021-06-11] MEDS: K and/or MAG REPLACEMENT MC SCH ×2 (08:00→19:45)
[2021-06-11 08:52] LABS: ALANINE AMINOTRANSFERASE 24 U/L (12-78); ALBUMIN 2.4 G/DL (3.4-5.0); ALBUMIN/GLOBULIN RATIO 0.6 (1.1-1.5); ALKALINE PHOSPHATASE 89 IU/L (46-116); ANION GAP 6 (8-16); ASPARTATE AMINO TRANSFERASE 23 U/L (10-37); BILIRUBIN,TOTAL 0.2 MG/DL (0.1-1.0); BLOOD UREA NITROGEN 24 MG/DL (7-18); BUN/CREATININE RATIO 28.6 (5.4-32.0); CALCIUM 8.3 MG/DL (8.5-10.1); CHLORIDE 106 MMOL/L (99-107); CREATININE 0.84 MG/DL (0.60-1.10); GLUCOSE 158 MG/DL (70-104); POTASSIUM 4.3 MMOL/L (3.5-5.1); SODIUM 142 MMOL/L (135-145); TOTAL CARBON DIOXIDE 30.2 MMOL/L (24-32); TOTAL PROTEIN 6.5 G/DL (6.4-8.2); TRIGLYCERIDES 56 MG/DL (20-135); eGFR 87 ML/MIN
[2021-06-11 09:20] LABS: % IRON SATURATION 11 % (11-46); IRON 14 UG/DL (53-167); TOTAL IRON BINDING CAPACITY 129 UG/DL (259-388)
[2021-06-11 11:00] VITALS: BP 121/66
[2021-06-11 15:00] VITALS: BP 109/64
--- NOTE | 2021-06-11 16:00 | NUR ---
rectal tube rectal tube d/c'd due to minimal output
[2021-06-11 18:00] VITALS: BP 116/75
--- NOTE | 2021-06-11 18:16 | NUR ---
Problems reprioritized. Patient report given Sendy RN, questions answered & plan of care reviewed with Sendy BENSON.
[2021-06-11] MEDS: gabapentin 300mg capsule PEG SCH (20:00)
[2021-06-11] MEDS: enoxaparin 40mg/0.4ml syringe SQ SCH (20:00)
[2021-06-11] MEDS: polyethylene glycol 3350 17gm powd pack PEG SCH (20:00)
[2021-06-11 22:00] VITALS: BP 102/60
[2021-06-12 02:00] VITALS: BP 112/62
[2021-06-12] MEDS: ROPINIRole 1mg tablet PEG SCH ×4 (02:48→19:56)
[2021-06-12] MEDS: ipratropium/albuterol 3ml nebule NEB SCH ×4 (03:22→21:42)
[2021-06-12 05:54] LABS: BASOPHILS # (AUTO) 0.1 X10'3 (0-0.2); BASOPHILS % (AUTO) 0.9 % (0-1); LYMPHOCYTES # (AUTO) 1.5 X10'3 (1.1-4.8); LYMPHOCYTES % (AUTO) 13.8 % (21-51); MEAN PLATELET VOLUME 7.1 FL (7.4-10.4); MONOCYTES # (AUTO) 0.8 X10'3 (0-0.9); NEUTROPHILS % (AUTO) 68.2 % (42-75)
[2021-06-12 05:57] LABS: EOSINOPHILS % (AUTO) 9.6 % (0-6); HEMOGLOBIN 9.2 g/dl (14.0-17.9); MONOCYTES % (AUTO) 7.5 % (2-12); NEUTROPHILS # (AUTO) 7.3 X10'3 (1.8-7.7); PLATELET COUNT 305 X10'3 (140-440); RED BLOOD COUNT 2.97 X10'6 (4.70-6.10); WHITE BLOOD COUNT 10.7 X10'3 (4.5-11.0)
[2021-06-12 06:00] VITALS: BP 103/60
[2021-06-12 06:25] LABS: ALANINE AMINOTRANSFERASE 33 U/L (12-78); ALBUMIN 2.4 G/DL (3.4-5.0); ALBUMIN/GLOBULIN RATIO 0.6 (1.1-1.5); ALKALINE PHOSPHATASE 95 IU/L (46-116); ANION GAP 7 (8-16); ASPARTATE AMINO TRANSFERASE 25 U/L (10-37); BILIRUBIN,TOTAL 0.2 MG/DL (0.1-1.0); BLOOD UREA NITROGEN 27 MG/DL (7-18); BUN/CREATININE RATIO 34.2 (5.4-32.0); CALCIUM 8.8 MG/DL (8.5-10.1); CHLORIDE 107 MMOL/L (99-107); CREATININE 0.79 MG/DL (0.60-1.10); GLUCOSE 120 MG/DL (70-104); PREALBUMIN 15.8 MG/DL (19-36); SODIUM 144 MMOL/L (135-145); TOTAL PROTEIN 6.5 G/DL (6.4-8.2); TRIGLYCERIDES 49 MG/DL (20-135); eGFR > 90 ML/MIN
[2021-06-12] MEDS: lansoprazole 15mg solutab PEG SCH (08:00)
[2021-06-12] MEDS: lactobacillus rhamnosus 10,000 MMU CELLS/CAPSULE PEG SCH ×2 (08:00→20:09)
[2021-06-12] MEDS: fluconazole/NS 400mg/200ml bag 200 ML IV SCH (08:00)
[2021-06-12] MEDS: lisinopril 5mg tablet PEG SCH (08:00)
[2021-06-12] MEDS: atorvastatin 20mg tablet PEG SCH (08:00)
[2021-06-12] MEDS: piperacillin/tazo 3.375gm/50ml 50 ML IV SCH ×3 (08:00→16:46)
[2021-06-12] MEDS: K and/or MAG REPLACEMENT MC SCH ×2 (08:00→19:44)
[2021-06-12 11:00] VITALS: BP 104/59
--- NOTE | 2021-06-12 13:59 | NUR ---
F/u 06/12: Pt returned to continuous TF w/ diarrhea resolved and rectal tube now removed given minimal output per EMR. Pending documentation of full EN volume in I&O at this time. PRN imodium last required 06/10 w/ serum Na WNL and PALB 15.8 up from prior 12.5 per EMR. Will continue to monitor for further EN tolerance and adjustment needs as medically indicated. Recommendations: 1. Continuous TF via J-tube using Pivot 1.5 with 60 mL/hr goal rate to provide 1440 mL total volume/day, 2160 kcal, 135 g protein, and 1093 mL water 2. Additional 175 mL water flush Q4H; monitor serum Na and need to adjust 3. Prealbumin q Saturday/; Daily scaled weights 4. Monitor for TF tolerance and further adjustment needs 5. PRN anti-diarrheal per DO Addendum: 06/12/21 at [address] Amended: Links added.
[2021-06-12 15:00] VITALS: BP 113/65
--- NOTE | 2021-06-12 16:40 | NUR ---
PAGER ID: [phone] MESSAGE: [phone] Martínez Gimenez re: sutures No notes on when they were placed, but chest tube was removed on 06/04/21. Do you want the sutures removed? Soledad ext [phone] Dr. Ramsey called back to say leave them in place until he further looks into it.
[2021-06-12 18:00] VITALS: BP 112/64
[2021-06-12] MEDS: gabapentin 300mg capsule PEG SCH (19:56)
[2021-06-12] MEDS: enoxaparin 40mg/0.4ml syringe SQ SCH (19:57)
[2021-06-12] MEDS: polyethylene glycol 3350 17gm powd pack PEG SCH (19:57)
[2021-06-12 22:00] VITALS: BP 93/59
[2021-06-13] MEDS: piperacillin/tazo 3.375gm/50ml 50 ML IV SCH ×3 (00:36→16:12)
[2021-06-13 02:00] VITALS: BP 93/57
[2021-06-13] MEDS: ROPINIRole 1mg tablet PEG SCH ×4 (02:41→21:15)
[2021-06-13] MEDS: ipratropium/albuterol 3ml nebule NEB SCH ×3 (03:36→16:52)
[2021-06-13 06:00] VITALS: BP 94/54
[2021-06-13 07:26] LABS: BASOPHILS # (AUTO) 0.1 X10'3 (0-0.2); BASOPHILS % (AUTO) 0.8 % (0-1); EOSINOPHILS # (AUTO) 1.3 X10'3 (0-0.9); EOSINOPHILS % (AUTO) 11.8 % (0-6); HEMOGLOBIN 9.2 g/dl (14.0-17.9); LYMPHOCYTES # (AUTO) 1.5 X10'3 (1.1-4.8); LYMPHOCYTES % (AUTO) 13.7 % (21-51); MEAN CORPUSCULAR HEMOGLOBIN 30.2 PG (27.0-31.0); MEAN CORPUSCULAR HGB CONC 32.9 g/dL (33.0-36.5); MEAN CORPUSCULAR VOLUME 91.8 FL (78-98); MEAN PLATELET VOLUME 7.4 FL (7.4-10.4); MONOCYTES # (AUTO) 0.8 X10'3 (0-0.9); NEUTROPHILS # (AUTO) 7.4 X10'3 (1.8-7.7); NEUTROPHILS % (AUTO) 66.7 % (42-75); PLATELET COUNT 282 X10'3 (140-440); RED BLOOD COUNT 3.05 X10'6 (4.70-6.10); RED CELL DISTRIBUTION WIDTH 15.3 % (11.5-14.5); WHITE BLOOD COUNT 11.1 X10'3 (4.5-11.0)
[2021-06-13 07:42] LABS: ALANINE AMINOTRANSFERASE 34 U/L (12-78); ALBUMIN 2.4 G/DL (3.4-5.0); ALBUMIN/GLOBULIN RATIO 0.6 (1.1-1.5); ALKALINE PHOSPHATASE 100 IU/L (46-116); ANION GAP 7 (8-16); ASPARTATE AMINO TRANSFERASE 26 U/L (10-37); BILIRUBIN,TOTAL 0.2 MG/DL (0.1-1.0); BLOOD UREA NITROGEN 28 MG/DL (7-18); BUN/CREATININE RATIO 36.4 (5.4-32.0); CALCIUM 8.5 MG/DL (8.5-10.1); CHLORIDE 105 MMOL/L (99-107); CREATININE 0.77 MG/DL (0.60-1.10); GLUCOSE 142 MG/DL (70-104); POTASSIUM 4.3 MMOL/L (3.5-5.1); SODIUM 141 MMOL/L (135-145); TOTAL CARBON DIOXIDE 28.8 MMOL/L (24-32); TOTAL PROTEIN 6.6 G/DL (6.4-8.2); eGFR > 90 ML/MIN
[2021-06-13] MEDS: K and/or MAG REPLACEMENT MC SCH ×2 (08:00→18:54)
[2021-06-13] MEDS: lisinopril 5mg tablet PEG SCH (08:00)
[2021-06-13] MEDS: lactobacillus rhamnosus 10,000 MMU CELLS/CAPSULE PEG SCH ×2 (08:18→21:15)
[2021-06-13] MEDS: atorvastatin 20mg tablet PEG SCH (08:18)
[2021-06-13] MEDS: lansoprazole 15mg solutab PEG SCH (08:18)
[2021-06-13] MEDS: fluconazole/NS 400mg/200ml bag 200 ML IV SCH (08:18)
[2021-06-13 11:00] VITALS: BP 90/59
[2021-06-13] MEDS: bisacodyl 10mg suppository rectal RC SCH (12:00)
[2021-06-13 15:00] VITALS: BP 105/59
[2021-06-13] MEDS: enoxaparin 40mg/0.4ml syringe SQ SCH (21:14)
[2021-06-13] MEDS: polyethylene glycol 3350 17gm powd pack PEG SCH (21:15)
[2021-06-13] MEDS: gabapentin 300mg capsule PEG SCH (21:15)
[2021-06-13 21:56] VITALS: BP 107/57
== END 2021-06-13 22:02 | DRG 853 ==
LOC: ER 14:35 → ED HOLD 05-18 → PCU 3S 05-18 04:20 → ICU 2S 05-18 21:18 → PCU 3S 06-03 07:44
PROVIDERS: ADMIT Family Medicine; ATTEND Family Medicine
PROC: 0DB30ZZ Excision of Lower Esophagus, Open Approach (ICD-10-PCS; 2021-05-18)
PROC: B4201ZZ Computerized Tomography (CT Scan) of Abdominal Aorta using Low Osmolar Contrast (ICD-10-PCS; 2021-05-18)
PROC: B4241ZZ Computerized Tomography (CT Scan) of Superior Mesenteric Artery using Low Osmolar Contrast (ICD-10-PCS; 2021-05-18)
PROC: B4281ZZ Computerized Tomography (CT Scan) of Bilateral Renal Arteries using Low Osmolar Contrast (ICD-10-PCS; 2021-05-18)
PROC: B42C1ZZ Computerized Tomography (CT Scan) of Pelvic Arteries using Low Osmolar Contrast (ICD-10-PCS; 2021-05-18)
PROC: B42H1ZZ Computerized Tomography (CT Scan) of Bilateral Lower Extremity Arteries using Low Osmolar Contrast (ICD-10-PCS; 2021-05-18)
PROC: B4211ZZ Computerized Tomography (CT Scan) of Celiac Artery using Low Osmolar Contrast (ICD-10-PCS; 2021-05-18)
PROC: B32T1ZZ Computerized Tomography (CT Scan) of Left Pulmonary Artery using Low Osmolar Contrast (ICD-10-PCS; 2021-05-18)
PROC: B3201ZZ Computerized Tomography (CT Scan) of Thoracic Aorta using Low Osmolar Contrast (ICD-10-PCS; 2021-05-18)
PROC: B32S1ZZ Computerized Tomography (CT Scan) of Right Pulmonary Artery using Low Osmolar Contrast (ICD-10-PCS; 2021-05-18)
PROC: 4A02XM4 Measurement of Cardiac Total Activity, External Approach (ICD-10-PCS; 2021-05-18)
PROC: 3E073KZ Introduction of Other Diagnostic Substance into Coronary Artery, Percutaneous Approach (ICD-10-PCS; 2021-05-18)
PROC: 3E0T3BZ Introduction of Anesthetic Agent into Peripheral Nerves and Plexi, Percutaneous Approach (ICD-10-PCS; 2021-05-18)
PROC: 3E0T33Z Introduction of Anti-inflammatory into Peripheral Nerves and Plexi, Percutaneous Approach (ICD-10-PCS; 2021-05-18)
PROC: 0DB10ZZ Excision of Upper Esophagus, Open Approach (ICD-10-PCS; 2021-05-18)
PROC: 0BQT0ZZ Repair Diaphragm, Open Approach (ICD-10-PCS; 2021-05-18)
PROC: 0DHA0UZ Insertion of Feeding Device into Jejunum, Open Approach (ICD-10-PCS; 2021-05-18)
PROC: 0DJ00ZZ Inspection of Upper Intestinal Tract, Open Approach (ICD-10-PCS; principal; 2021-05-18 15:50)
PROC: 5A09357 Assistance with Respiratory Ventilation, Less than 24 Consecutive Hours, Continuous Positive Airway Pressure (ICD-10-PCS; 2021-05-26)
PROC: 5A1945Z Respiratory Ventilation, 24-96 Consecutive Hours (ICD-10-PCS; 2021-05-27)
PROC: 0BH17EZ Insertion of Endotracheal Airway into Trachea, Via Natural or Artificial Opening (ICD-10-PCS; 2021-05-27)
PROC: 0B9B8ZZ Drainage of Left Lower Lobe Bronchus, Via Natural or Artificial Opening Endoscopic (ICD-10-PCS; 2021-05-28)
PROC: 0W9B30Z Drainage of Left Pleural Cavity with Drainage Device, Percutaneous Approach (ICD-10-PCS; 2021-05-28)
PROC: 02HV33Z Insertion of Infusion Device into Superior Vena Cava, Percutaneous Approach (ICD-10-PCS; 2021-05-30)
PROC: B548ZZA Ultrasonography of Superior Vena Cava, Guidance (ICD-10-PCS; 2021-05-30)
PROC: 02HV33Z Insertion of Infusion Device into Superior Vena Cava, Percutaneous Approach (ICD-10-PCS; 2021-05-31)
PROC: B548ZZA Ultrasonography of Superior Vena Cava, Guidance (ICD-10-PCS; 2021-05-31)
PROC: 5A09357 Assistance with Respiratory Ventilation, Less than 24 Consecutive Hours, Continuous Positive Airway Pressure (ICD-10-PCS; 2021-05-31)
PROC: 5A09357 Assistance with Respiratory Ventilation, Less than 24 Consecutive Hours, Continuous Positive Airway Pressure (ICD-10-PCS; 2021-06-01)
PROC: 5A09357 Assistance with Respiratory Ventilation, Less than 24 Consecutive Hours, Continuous Positive Airway Pressure (ICD-10-PCS; 2021-06-02)
PROC: 5A09357 Assistance with Respiratory Ventilation, Less than 24 Consecutive Hours, Continuous Positive Airway Pressure (ICD-10-PCS; 2021-06-04)
PROC: 5A09357 Assistance with Respiratory Ventilation, Less than 24 Consecutive Hours, Continuous Positive Airway Pressure (ICD-10-PCS; 2021-06-05)
PROC: 5A09357 Assistance with Respiratory Ventilation, Less than 24 Consecutive Hours, Continuous Positive Airway Pressure (ICD-10-PCS; 2021-06-06)
PROC: 5A09357 Assistance with Respiratory Ventilation, Less than 24 Consecutive Hours, Continuous Positive Airway Pressure (ICD-10-PCS; 2021-06-07)
PROC: 5A09357 Assistance with Respiratory Ventilation, Less than 24 Consecutive Hours, Continuous Positive Airway Pressure (ICD-10-PCS; 2021-06-08)
PROC: 5A09357 Assistance with Respiratory Ventilation, Less than 24 Consecutive Hours, Continuous Positive Airway Pressure (ICD-10-PCS; 2021-06-10)
PROC: 5A09357 Assistance with Respiratory Ventilation, Less than 24 Consecutive Hours, Continuous Positive Airway Pressure (ICD-10-PCS; 2021-06-11)
PROC: 5A09357 Assistance with Respiratory Ventilation, Less than 24 Consecutive Hours, Continuous Positive Airway Pressure (ICD-10-PCS; 2021-06-12)
PROC: 5A0935A Assistance with Respiratory Ventilation, Less than 24 Consecutive Hours, High Flow/Velocity Cannula (ICD-10-PCS; 2021-06-12)
PROC: 5A09357 Assistance with Respiratory Ventilation, Less than 24 Consecutive Hours, Continuous Positive Airway Pressure (ICD-10-PCS; 2021-06-13)
DX: A41.9 Sepsis, unspecified organism (principal); K22.3 Perforation of esophagus; J98.51 Mediastinitis; J96.01 Acute respiratory failure with hypoxia; R65.21 Severe sepsis with septic shock; J86.9 Pyothorax without fistula; E43 Unspecified severe protein-calorie malnutrition; N39.0 Urinary tract infection, site not specified; N17.9 Acute kidney failure, unspecified; J90 Pleural effusion, not elsewhere classified; G93.40 Encephalopathy, unspecified; D62 Acute posthemorrhagic anemia; E87.0 Hyperosmolality and hypernatremia; Z20.822 Contact with and (suspected) exposure to COVID-19; B95.4 Other streptococcus as the cause of diseases classified elsewhere; E86.1 Hypovolemia; K44.9 Diaphragmatic hernia without obstruction or gangrene; R19.7 Diarrhea, unspecified; R82.4 Acetonuria; G89.4 Chronic pain syndrome; I25.10 Atherosclerotic heart disease of native coronary artery without angina pectoris; J98.2 Interstitial emphysema; K21.9 Gastro-esophageal reflux disease without esophagitis; M41.9 Scoliosis, unspecified; Z79.891 Long term (current) use of opiate analgesic; Z95.5 Presence of coronary angioplasty implant and graft; Z79.899 Other long term (current) drug therapy; Z87.11 Personal history of peptic ulcer disease; E87.6 Hypokalemia; Z68.25 Body mass index [BMI] 25.0-25.9, adult; J98.4 Other disorders of lung
CPT/HCPCS: 31645; 32557; 36415; 36569; 36573; 36600; 71045; 71250; 71260; 71275; 74018; 74174; 74177; 78452; 80047; 80048; 80053; 80061; 80202; 81001; 82803; 82948; 83036; 83540; 83550; 83605; 83735; 83880; 84100; 84132; 84134; 84145; 84443; 84478; 84484; 85007; 85008; 85018; 85025; 85379; 85610; 85730; 86885; 86900; 86901; 86920; 87040; 87070; 87075; 87077; 87081; 87088; 87186; 87635; 93005; 93017; 93971; 94002; 94003; 94640; 94760; 94799; 97110; 97161; 97530; 99285; A4421; A4618; A6258; A6449; A7000; A7048; A7526; A9500; C1758; C9113; C9290; G0378; J0131; J0461; J0690; J0696; J1200; J1450; J1644; J1650; J2248; J2250; J2270; J2543; J2704; J2765; J2785; J3010; J3370; J3480; J3490; J7030; J7040; J7060; J7070; J7120; J7121; P9045; P9047; Q9963; Q9967

== ENCOUNTER 2022-08-06 17:08 | Emergency (ER) | payer OTHER, MEDICARE ==
[~2022-08-06] VITALS: Ht 177.8 cm; Wt 75.0 kg
[~2022-08-06 17:08] MED LIST changes: +DOCU100C40 PO; +GABA300C PO; +HYDR-3972 PO; +LACT10SO3 PO; +LANS15TA5 JT; +LIDO700A32 TOP; -MAGN296S68 PO; +ROPI1TAB6 PO
[2022-08-06] MEDS ORDERED: diatrozoate meglu/diatrozoate sod (37% iodine) 120ML oral solution PO ONE (17:20)
[2022-08-06 17:23] VITALS: BP 142/87
[2022-08-06] MEDS ORDERED: diatr meglu/diatrizoate 30ml oral sol.-(3 dose) bottle PO ONE (17:25)
--- NOTE | 2022-08-06 18:14 | NUR ---
I AGREE WITH THE GENERAL ASSESSMENT PERFORMED PER Anisha RAMIREZ LVN
== END 2022-08-06 19:40 | disposition home or self-care (01) ==
LOC: ER 17:10
DX: K94.29 Other complications of gastrostomy (principal); Z88.8 Allergy status to other drugs, medicaments and biological substances; Z79.899 Other long term (current) drug therapy
CPT/HCPCS: 43762; 74018; 99284; Q9963; A4338; A6449

== ENCOUNTER 2022-08-07 00:07 | Emergency (ER) | payer OTHER, MEDICARE ==
[~2022-08-07] VITALS: Ht 175.3 cm; Wt 77.3 kg
[~2022-08-07 00:07] MED LIST changes: +GABA300C GT; -GABA300C PO; +HYDR-3972 GT; -HYDR-3972 PO; +LACT10SO3 GT; -LACT10SO3 PO; +ROPI1TAB6 GT; -ROPI1TAB6 PO
[2022-08-07] MEDS ORDERED: diatr meglu/diatrizoate 30ml oral sol.-(3 dose) bottle PO ONE (00:50)
[2022-08-07 05:00] VITALS: BP 102/60
[2022-08-17] MEDS ORDERED: MENT1ADH TD (11:14)
[2022-08-17] MEDS ORDERED: ASPI-1071 GT (11:14)
[2022-08-17] MEDS ORDERED: CALC3.7S3 NS (11:14)
[2022-08-17] MEDS ORDERED: OMEG-5 GT (11:14)
== END 2022-08-07 06:01 ==
LOC: ER 00:08
DX: K94.23 Gastrostomy malfunction (principal); Z88.5 Allergy status to narcotic agent; Z79.899 Other long term (current) drug therapy
CPT/HCPCS: 43762; 74018; 99284; Q9963

== ENCOUNTER 2022-08-10 21:39 | Emergency (ER) | payer OTHER, MEDICARE ==
[~2022-08-10] VITALS: Ht 182.9 cm; Wt 79.5 kg
[~2022-08-10 21:39] MED LIST changes: -GABA300C GT; +GABA300C PO; -HYDR-3972 GT; +HYDR-3972 PO; -LACT10SO3 GT; +LACT10SO3 PO; -ROPI1TAB6 GT; +ROPI1TAB6 PO
[2022-08-10] MEDS ORDERED: diatrozoate meglu/diatrozoate sod (37% iodine) 120ML oral solution PO STA (22:50)
[2022-08-10] MEDS ORDERED: diatr meglu/diatrizoate 30ml oral sol.-(3 dose) bottle PO STA (23:16)
[2022-08-10] MEDS ORDERED: HYDROcodone/acetaminophen 10/325mg tab PO ONE (23:35)
[2022-08-11] MEDS ORDERED: HYDROcodone/acetaminophen 10/325mg tab PO ONE (04:55)
--- NOTE | 2022-08-11 10:01 | NUR ---
Patient picked up by [facility] at appx 0945. Pt educated by RN that additional imaging will be needed, as well as f/u with Primary provider and Coding And Reimbursement Specialist for PEG tube replacement. VSS at time of D/C.
--- NOTE | 2022-08-11 10:12 | NUR ---
Report called to Andrew at [facility]. D/C paperwork sent with [facility].
[2022-08-11 10:13] VITALS: BP 126/87
== END 2022-08-11 10:25 ==
LOC: ER 21:40
DX: K94.20 Gastrostomy complication, unspecified (principal)
CPT/HCPCS: 74018; 99284

== ENCOUNTER 2022-08-12 16:47 | Emergency (ER) | payer OTHER, MEDICARE ==
[~2022-08-12] VITALS: Ht 182.9 cm; Wt 78.6 kg
[2022-08-12] MEDS ORDERED: diatrozoate meglu/diatrozoate sod (37% iodine) 120ML oral solution PO ONE (19:45)
[2022-08-12] MEDS ORDERED: diatr meglu/diatrizoate 30ml oral sol.-(3 dose) bottle PO ONE (19:50)
[2022-08-12] MEDS ORDERED: diatr meglu/diatrizoate 30ml oral sol.-(3 dose) bottle ONE (20:02)
--- NOTE | 2022-08-12 20:27 | NUR ---
agree with [facility]-neurosurgery research director general assessment.
[2022-08-12] MEDS ORDERED: ROPINIRole 1mg tablet PO STA (20:31)
[2022-08-12] MEDS ORDERED: HYDROcodone/acetaminophen 10/325mg tab PO ONE (20:35)
--- NOTE | 2022-08-12 22:10 | NUR ---
REPORT CALLED TO NURSE AT [facility]
[2022-08-13 00:44] VITALS: BP 109/63
== END 2022-08-13 00:47 | disposition home or self-care (01) ==
LOC: ER 16:47
DX: K94.20 Gastrostomy complication, unspecified (principal); Z88.8 Allergy status to other drugs, medicaments and biological substances; Z79.899 Other long term (current) drug therapy
CPT/HCPCS: 43762; 74019; 99284; Q9963

== ENCOUNTER 2023-05-31 10:41 | Day surgery (SDC) | payer OTHER ==
[~2023-05-31] VITALS: Ht 182.9 cm; Wt 93.4 kg
[~2023-05-31 10:41] MED LIST changes: -DOCU100C40 PO; +GABA300C GT; -GABA300C PO; +HYDR-3972 GT; -HYDR-3972 PO; -LACT10SO3 PO; -LANS15TA5 JT; -LIDO700A32 TOP; +OMEG-5 GT; +ROPI1TAB47 GT; -ROPI1TAB6 PO
[2023-05-31] MEDS ORDERED: normal saline 1000ml 1,000 ML IV SCH (11:00)
[2023-05-31] MEDS ORDERED: LACT10SO3 PO (11:07)
[2023-05-31 11:10] VITALS: BP 114/72; PULSE 71; RESP 16; TEMP 97.7; O2SAT 98
[2023-05-31 11:33] LABS: BASOPHILS # (AUTO) 0.1 X10'3 (0-0.2); BASOPHILS % (AUTO) 1.1 % (0-1); EOSINOPHILS # (AUTO) 0.4 X10'3 (0-0.9); EOSINOPHILS % (AUTO) 6.7 % (0-6); HEMATOCRIT 40.5 % (42.0-52.0); HEMOGLOBIN 13.3 g/dl (14.0-17.9); LYMPHOCYTES # (AUTO) 1.5 X10'3 (1.1-4.8); LYMPHOCYTES % (AUTO) 23.7 % (21-51); MEAN CORPUSCULAR HEMOGLOBIN 31.8 PG (27.0-31.0); MEAN CORPUSCULAR HGB CONC 32.9 g/dL (33.0-36.5); MEAN CORPUSCULAR VOLUME 96.6 FL (78-98); MEAN PLATELET VOLUME 8.4 FL (7.4-10.4); MONOCYTES # (AUTO) 0.5 X10'3 (0-0.9); MONOCYTES % (AUTO) 8.3 % (2-12); NEUTROPHILS # (AUTO) 3.8 X10'3 (1.8-7.7); NEUTROPHILS % (AUTO) 60.2 % (42-75); PLATELET COUNT 176 X10'3 (140-440); RED BLOOD COUNT 4.19 X10'6 (4.70-6.10); RED CELL DISTRIBUTION WIDTH 14.3 % (11.5-14.5); WHITE BLOOD COUNT 6.4 X10'3 (4.5-11.0)
[2023-05-31 11:49] LABS: PROTHROMBIN TIME 10.6 SECONDS (9.0-12.0)
[2023-05-31] MEDS ORDERED: iohexol 300 MG/1 ML 50ml polymer ONE (12:14)
[2023-05-31] MEDS ORDERED: LIDOcaine 1% 30ml preserv. free vial ONE (12:15)
== END 2023-05-31 13:10 | disposition home or self-care (01) ==
LOC: SSTAY O 10:41
PROVIDERS: ATTEND Radiology Vascular & Interventional Radiology
DX: Z43.4 Encounter for attention to other artificial openings of digestive tract (principal); Z53.8 Procedure and treatment not carried out for other reasons; M41.9 Scoliosis, unspecified; G25.81 Restless legs syndrome; Z88.8 Allergy status to other drugs, medicaments and biological substances; Z98.890 Other specified postprocedural states; Z79.899 Other long term (current) drug therapy
CPT/HCPCS: 36415; 85025; 85610; J3490; J7030; Q9967; A4620

== ENCOUNTER 2023-07-18 10:59 | Day surgery (SDC) | payer OTHER ==
[~2023-07-18] VITALS: Ht 182.9 cm; Wt 82.3 kg
[~2023-07-18 10:59] MED LIST changes: +LACT10SO3 PO
[2023-07-18 11:31] VITALS: BP 122/74; PULSE 81; RESP 16; TEMP 97.7; O2SAT 96
[2023-07-18] MEDS ORDERED: normal saline 1000ml 1,000 ML IV SCH (11:50)
[2023-07-18] MEDS ORDERED: iohexol 300 MG/1 ML 50ml polymer ONE ×2 (13:29→13:57)
[2023-07-18] MEDS ORDERED: fentaNYL/PF 50MCG/1 ML 2ML syringe ONE (14:03)
[2023-07-18 14:15] VITALS: BP 113/63; PULSE 75; RESP 16; O2SAT 93
[2023-07-18 14:30] VITALS: BP 104/58; PULSE 73; RESP 14; O2SAT 93
== END 2023-07-18 15:00 | disposition home or self-care (01) ==
LOC: SSTAY O 10:59
PROVIDERS: ATTEND Radiology Vascular & Interventional Radiology
DX: Z43.4 Encounter for attention to other artificial openings of digestive tract (principal); Z88.8 Allergy status to other drugs, medicaments and biological substances; Z79.899 Other long term (current) drug therapy
CPT/HCPCS: 49451; B4087; C1769; J3010; J7030; Q9967; A6449

== ENCOUNTER 2023-08-12 11:49 | Emergency (ER) | payer OTHER, MEDICARE ==
[~2023-08-12] VITALS: Ht 182.9 cm; Wt 79.5 kg
[2023-08-12] MEDS: zinc oxide ointment 30gm tube TP STA (13:40)
[2023-08-12] MEDS: mupirocin 2% ointment 22GM TP STA (13:40)
[2023-08-12 14:47] VITALS: BP 88/52; PULSE 70; RESP 15; TEMP 97.8; O2SAT 98
== END 2023-08-12 14:49 | disposition home or self-care (01) ==
LOC: ER 11:50
DX: K94.13 Enterostomy malfunction (principal); Z88.8 Allergy status to other drugs, medicaments and biological substances; Z79.899 Other long term (current) drug therapy
CPT/HCPCS: 99283; B4087

== ENCOUNTER 2023-08-17 11:26 | Inpatient (IN) | payer OTHER, MEDICARE ==
[~2023-08-17] VITALS: Ht 185.4 cm; Wt 84.8 kg
[2023-08-17] VITALS (11 sets, daily range): BP systolic 113–118; BP diastolic 66–70; PULSE 75–97; RESP 18–28; TEMP 97.1–98; O2SAT 85–97
[2023-08-17 12:13] LABS: BASOPHILS % (AUTO) 0.5 % (0-1); EOSINOPHILS # (AUTO) 0.2 X10'3 (0-0.9); EOSINOPHILS % (AUTO) 2.5 % (0-6); HEMATOCRIT 40.7 % (42.0-52.0); HEMOGLOBIN 13.5 g/dl (14.0-17.9); LYMPHOCYTES # (AUTO) 1.2 X10'3 (1.1-4.8); LYMPHOCYTES % (AUTO) 13.8 % (21-51); MEAN CORPUSCULAR HEMOGLOBIN 31.9 PG (27.0-31.0); MEAN CORPUSCULAR HGB CONC 33.1 g/dL (33.0-36.5); MEAN CORPUSCULAR VOLUME 96.4 FL (78-98); MEAN PLATELET VOLUME 8.1 FL (7.4-10.4); MONOCYTES # (AUTO) 0.8 X10'3 (0-0.9); MONOCYTES % (AUTO) 8.9 % (2-12); NEUTROPHILS # (AUTO) 6.6 X10'3 (1.8-7.7); NEUTROPHILS % (AUTO) 74.3 % (42-75); PLATELET COUNT 183 X10'3 (140-440); RED BLOOD COUNT 4.23 X10'6 (4.70-6.10); RED CELL DISTRIBUTION WIDTH 13.7 % (11.5-14.5); WHITE BLOOD COUNT 8.9 X10'3 (4.5-11.0)
[2023-08-17 12:45] LABS: ALANINE AMINOTRANSFERASE 10 U/L (12-78); ALBUMIN 3.5 G/DL (3.4-5.0); ALBUMIN/GLOBULIN RATIO 0.9 (1.1-1.5); ALKALINE PHOSPHATASE 145 IU/L (46-116); ANION GAP 4 (8-16); ASPARTATE AMINO TRANSFERASE 17 U/L (10-37); BILIRUBIN,TOTAL 0.4 MG/DL (0.1-1.0); BLOOD UREA NITROGEN 26 MG/DL (7-18); BUN/CREATININE RATIO 30.2 (10.0-20.0); CALCIUM 9.4 MG/DL (8.5-10.1); CHLORIDE 101 MMOL/L (99-107); CREATININE 0.86 MG/DL (0.60-1.10); GLUCOSE 115 MG/DL (70-104); POTASSIUM 4.2 MMOL/L (3.5-5.1); SODIUM 139 MMOL/L (135-145); TOTAL CARBON DIOXIDE 33.8 MMOL/L (24-32); TOTAL PROTEIN 7.5 G/DL (6.4-8.2); eCRCL 68 ML/MIN; eGFR 84 ML/MIN
[2023-08-17 12:54] LABS: BILIRUBIN,DIRECT 0.2 MG/DL (0-0.3); PRO BRAIN NATRIURETIC PEPTIDE 144 PG/ML (0-450)
[2023-08-17] MEDS ORDERED: magnesium Cl slow-release 64mg tablet PO PRN (13:25)
[2023-08-17] MEDS ORDERED: potassium Cl 40MEQ/1/2NS 520ml 520 ML IV PRN (13:25)
[2023-08-17] MEDS ORDERED: mag hydrox/Alum hydrox/simeth 30ml oral suspension PO PRN (13:25)
[2023-08-17] MEDS ORDERED: ondansetron/PF 4mg/2ml inj IV PRN (13:25)
[2023-08-17] MEDS ORDERED: magnesium 4gm in 100ml NS 100 ML IV PRN (13:25)
[2023-08-17] MEDS ORDERED: HYDROcodone/acetaminophen 10/325mg tab PO PRN (13:25)
[2023-08-17] MEDS ORDERED: HYDROcodone/acetaminophen 5mg/325mg tablet PO PRN (13:25)
[2023-08-17] MEDS ORDERED: acetaminophen 325mg tablet PO PRN (13:25)
[2023-08-17] MEDS ORDERED: magnesium hydroxide 30ml (MOM) UD suspension PO PRN (13:25)
[2023-08-17] MEDS ORDERED: magnesium 2GM in 50ml NS 50 ML IV PRN (13:25)
[2023-08-17] MEDS ORDERED: potassium Cl 20 mEq SR tablet PO PRN ×2 (13:25)
[2023-08-17 14:58] LABS: MAGNESIUM 2.9 MG/DL (1.5-2.4); POTASSIUM 4.3 MMOL/L (3.5-5.1)
[2023-08-17] MEDS: ROPINIRole 1mg tablet PO SCH (17:02)
[2023-08-17] MEDS: ipratropium/albuterol 3ml nebule NEB PRN (17:50)
[2023-08-17] MEDS: furosemide 40mg/4ml inj IV ONE (17:57)
[2023-08-17] MEDS: methylPREDNISolone sod succ 125mg/2ml vial IV SCH (17:57)
[2023-08-17] MEDS: racepinephrine 11.25mg/0.5ml nebule IH PRN (19:40)
[2023-08-17] MEDS ORDERED: acetaminophen 325mg tablet JT PRN (19:47)
[2023-08-17] MEDS ORDERED: mag hydrox/Alum hydrox/simeth 30ml oral suspension JT PRN (19:48)
[2023-08-17] MEDS ORDERED: potassium Cl 20 mEq SR tablet JT PRN ×2 (19:49)
[2023-08-17] MEDS ORDERED: HYDROcodone/acetaminophen 7.5MG/325MG per 15ml UD CUP PO PRN ×2 (19:58→20:24)
[2023-08-17] MEDS ORDERED: apixaban 2.5mg tablet PO SCH (20:00)
[2023-08-17] MEDS: docusate sod 100mg capsule PO SCH (20:00)
[2023-08-17] MEDS ORDERED: metoprolol tartrate 50mg tablet PO SCH (20:00)
[2023-08-17] MEDS ORDERED: ROPINIRole 1mg tablet PO SCH (20:00)
[2023-08-17] MEDS: K and/or MAG REPLACEMENT MC SCH (20:00)
[2023-08-17] MEDS: HYDROcodone/acetaminophen 7.5MG/325MG per 15ml UD CUP JT PRN (20:47)
[2023-08-17] MEDS: metoprolol tartrate 50mg tablet JT SCH (20:49)
[2023-08-17] MEDS: apixaban 2.5mg tablet JT SCH (20:49)
[2023-08-17] MEDS: ROPINIRole 1mg tablet JT SCH (20:49)
[2023-08-18] VITALS (18 sets, daily range): BP systolic 90–105; BP diastolic 53–63; PULSE 75–103; RESP 17–24; TEMP 97–98.2; O2SAT 92–97
[2023-08-18 06:58] LABS: BASOPHILS % (AUTO) 0.2 % (0-1); EOSINOPHILS % (AUTO) 0 % (0-6); HEMATOCRIT 39.1 % (42.0-52.0); HEMOGLOBIN 13.3 g/dl (14.0-17.9); LYMPHOCYTES # (AUTO) 0.4 X10'3 (1.1-4.8); LYMPHOCYTES % (AUTO) 3.7 % (21-51); MEAN CORPUSCULAR HEMOGLOBIN 32.8 PG (27.0-31.0); MEAN CORPUSCULAR HGB CONC 34.1 g/dL (33.0-36.5); MEAN CORPUSCULAR VOLUME 96.2 FL (78-98); MEAN PLATELET VOLUME 8.4 FL (7.4-10.4); MONOCYTES # (AUTO) 0.2 X10'3 (0-0.9); MONOCYTES % (AUTO) 1.8 % (2-12); NEUTROPHILS # (AUTO) 9.2 X10'3 (1.8-7.7); NEUTROPHILS % (AUTO) 94.3 % (42-75); PLATELET COUNT 201 X10'3 (140-440); RED BLOOD COUNT 4.06 X10'6 (4.70-6.10); RED CELL DISTRIBUTION WIDTH 13.6 % (11.5-14.5); WHITE BLOOD COUNT 9.7 X10'3 (4.5-11.0)
[2023-08-18 07:31] LABS: ALANINE AMINOTRANSFERASE 17 U/L (12-78); ALBUMIN 3.1 G/DL (3.4-5.0); ALBUMIN/GLOBULIN RATIO 0.8 (1.1-1.5); ALKALINE PHOSPHATASE 129 IU/L (46-116); ANION GAP 6 (8-16); ASPARTATE AMINO TRANSFERASE 12 U/L (10-37); BILIRUBIN,TOTAL 0.4 MG/DL (0.1-1.0); BLOOD UREA NITROGEN 34 MG/DL (7-18); BUN/CREATININE RATIO 31.5 (10.0-20.0); CALCIUM 8.6 MG/DL (8.5-10.1); CHLORIDE 101 MMOL/L (99-107); CREATININE 1.08 MG/DL (0.60-1.10); GLUCOSE 291 MG/DL (70-104); MAGNESIUM 2.5 MG/DL (1.5-2.4); POTASSIUM 4.5 MMOL/L (3.5-5.1); SODIUM 139 MMOL/L (135-145); TOTAL CARBON DIOXIDE 31.8 MMOL/L (24-32); eCRCL 54 ML/MIN; eGFR 65 ML/MIN
[2023-08-18] MEDS ORDERED: ipratropium/albuterol 3ml nebule NEB PRN (09:45)
[2023-08-18] MEDS: HYDROcodone/acetaminophen 7.5MG/325MG per 15ml UD CUP JT PRN (12:32)
[2023-08-18] MEDS ORDERED: insulin Lispro (HumaLOG) vial - multi-dose SQ SCH (19:30)
[2023-08-18] MEDS ORDERED: DEXTROSE 15 GM of carb/4 tabs (each vial/BOTTLE has 4 tablets) PO PRN ×2 (19:30)
[2023-08-18] MEDS ORDERED: glucagon, human recombinant 1mg kit SUBCUT PRN (19:30)
[2023-08-18] MEDS: MESSAGE TO PHARMACY PO ONE (19:43)
[2023-08-18] MEDS: insulin glargine (Lantus) pen - multi-dose SQ SCH (21:00)
[2023-08-19] VITALS (10 sets, daily range): BP systolic 99–123; BP diastolic 58–73; PULSE 75–98; RESP 16–20; TEMP 97–98.9; O2SAT 90–96
[2023-08-19] MEDS: methylPREDNISolone sod succ/PF 40mg inj. IV SCH (00:43)
[2023-08-19 07:27] LABS: BASOPHILS % (AUTO) 0 % (0-1); EOSINOPHILS % (AUTO) 0 % (0-6); HEMOGLOBIN 13.1 g/dl (14.0-17.9); LYMPHOCYTES % (AUTO) 5.7 % (21-51); MEAN CORPUSCULAR HEMOGLOBIN 32.2 PG (27.0-31.0); MEAN CORPUSCULAR HGB CONC 33.7 g/dL (33.0-36.5); MEAN CORPUSCULAR VOLUME 95.7 FL (78-98); MEAN PLATELET VOLUME 8.3 FL (7.4-10.4); MONOCYTES # (AUTO) 1.5 X10'3 (0-0.9); MONOCYTES % (AUTO) 8.7 % (2-12); NEUTROPHILS # (AUTO) 14.9 X10'3 (1.8-7.7); NEUTROPHILS % (AUTO) 85.6 % (42-75); PLATELET COUNT 216 X10'3 (140-440); RED BLOOD COUNT 4.08 X10'6 (4.70-6.10); RED CELL DISTRIBUTION WIDTH 13.9 % (11.5-14.5); WHITE BLOOD COUNT 17.4 X10'3 (4.5-11.0)
[2023-08-19 07:42] LABS: ALANINE AMINOTRANSFERASE 16 U/L (12-78); ALBUMIN/GLOBULIN RATIO 0.8 (1.1-1.5); ALKALINE PHOSPHATASE 117 IU/L (46-116); ANION GAP 8 (8-16); ASPARTATE AMINO TRANSFERASE 10 U/L (10-37); BILIRUBIN,TOTAL 0.3 MG/DL (0.1-1.0); BLOOD UREA NITROGEN 51 MG/DL (7-18); BUN/CREATININE RATIO 46.8 (10.0-20.0); CHLORIDE 104 MMOL/L (99-107); CREATININE 1.09 MG/DL (0.60-1.10); GLUCOSE 118 MG/DL (70-104); MAGNESIUM 2.7 MG/DL (1.5-2.4); POTASSIUM 4.4 MMOL/L (3.5-5.1); PREALBUMIN 19.4 MG/DL (19-36); SODIUM 143 MMOL/L (135-145); TOTAL PROTEIN 6.7 G/DL (6.4-8.2); eCRCL 54 ML/MIN; eGFR 64 ML/MIN
[2023-08-19 08:52] LABS: ABG BASE EXCESS 5.5 mmol/L (-2.0-2.0); ABG HCO3 32.9 mmol/L (22.0-26.0); ABG OXYGEN SATURATION 96.9 % (94-97); ABG PCO2 (T) 58.9 mmHg (35.0-48.0); ABG PH (T) 7.362 (7.340-7.440); ABG PO2 (T) 87.2 mmHg (75.0-100.0); ALLEN'S TEST POSITIVE; FCOHb 0.9 % (0.0-3.9); FHHb 3.1 % (0.0-5.0); FMetHb 0.1 % (0.0-1.5); FO2Hb 95.9 % (94-97); MODE NC; PATIENT TEMPERATURE 36.5; TOTAL HEMOGLOBIN 13.9 G/dl (14.0-17.9)
[2023-08-19] MEDS ORDERED: iohexol 350MG/ML 100ml bottle IV ONE (10:36)
[2023-08-19] MEDS: lactulose 20gm/30ml cup PO ONE (20:29)
[2023-08-20] VITALS (8 sets, daily range): BP systolic 90–123; BP diastolic 56–74; PULSE 68–92; RESP 16–22; TEMP 97.1–97.7; O2SAT 5–96
[2023-08-20] MEDS: methylPREDNISolone sod succ/PF 40mg inj. IV SCH (00:09)
[2023-08-20] MEDS: ROPINIRole 1mg tablet JT SCH (05:49)
[2023-08-20 08:56] LABS: BASOPHILS % (AUTO) 0.1 % (0-1); EOSINOPHILS % (AUTO) 0 % (0-6); HEMATOCRIT 38.7 % (42.0-52.0); HEMOGLOBIN 13.1 g/dl (14.0-17.9); LYMPHOCYTES # (AUTO) 0.5 X10'3 (1.1-4.8); LYMPHOCYTES % (AUTO) 4.3 % (21-51); MEAN CORPUSCULAR HEMOGLOBIN 32.6 PG (27.0-31.0); MEAN CORPUSCULAR HGB CONC 33.9 g/dL (33.0-36.5); MEAN PLATELET VOLUME 8.2 FL (7.4-10.4); MONOCYTES # (AUTO) 0.7 X10'3 (0-0.9); MONOCYTES % (AUTO) 6.4 % (2-12); NEUTROPHILS # (AUTO) 10.1 X10'3 (1.8-7.7); NEUTROPHILS % (AUTO) 89.2 % (42-75); PLATELET COUNT 214 X10'3 (140-440); RED BLOOD COUNT 4.03 X10'6 (4.70-6.10); RED CELL DISTRIBUTION WIDTH 13.9 % (11.5-14.5); WHITE BLOOD COUNT 11.3 X10'3 (4.5-11.0)
[2023-08-20] MEDS: metoprolol tartrate 25mg tablet JT SCH (09:03)
[2023-08-20] MEDS: docusate sodium 100mg/10ml UD cup JT SCH (09:26)
[2023-08-20 09:29] LABS: ALANINE AMINOTRANSFERASE 20 U/L (12-78); ALBUMIN 2.8 G/DL (3.4-5.0); ALBUMIN/GLOBULIN RATIO 0.8 (1.1-1.5); ALKALINE PHOSPHATASE 128 IU/L (46-116); ANION GAP 5 (8-16); ASPARTATE AMINO TRANSFERASE 15 U/L (10-37); BILIRUBIN,TOTAL 0.3 MG/DL (0.1-1.0); BLOOD UREA NITROGEN 47 MG/DL (7-18); CALCIUM 8.4 MG/DL (8.5-10.1); CHLORIDE 104 MMOL/L (99-107); CREATININE 0.96 MG/DL (0.60-1.10); GLUCOSE 181 MG/DL (70-104); MAGNESIUM 2.6 MG/DL (1.5-2.4); SODIUM 144 MMOL/L (135-145); TOTAL CARBON DIOXIDE 35.2 MMOL/L (24-32); TOTAL PROTEIN 6.5 G/DL (6.4-8.2); eCRCL 61 ML/MIN; eGFR 74 ML/MIN
[2023-08-20] MEDS: morphine 2 MG/ML inj. syringe IV PRN (10:47)
[2023-08-20] MEDS: magnesium hydroxide 30ml (MOM) UD suspension JT PRN (19:21)
[2023-08-20] MEDS ORDERED: mupirocin 2% ointment 22GM TP SCH (20:00)
[2023-08-20] MEDS: nystatin 15 GM powder TP SCH (22:29)
[2023-08-21] VITALS (11 sets, daily range): BP systolic 101–120; BP diastolic 58–114; PULSE 63–89; RESP 18–25; TEMP 97.4–98.9; O2SAT 94–98
[2023-08-21 07:47] LABS: BASOPHILS % (AUTO) 0.1 % (0-1); EOSINOPHILS % (AUTO) 0 % (0-6); HEMOGLOBIN 13.7 g/dl (14.0-17.9); LYMPHOCYTES # (AUTO) 0.5 X10'3 (1.1-4.8); LYMPHOCYTES % (AUTO) 4.5 % (21-51); MEAN CORPUSCULAR HEMOGLOBIN 32.3 PG (27.0-31.0); MEAN CORPUSCULAR HGB CONC 33.5 g/dL (33.0-36.5); MEAN CORPUSCULAR VOLUME 96.3 FL (78-98); MEAN PLATELET VOLUME 8.2 FL (7.4-10.4); MONOCYTES # (AUTO) 0.8 X10'3 (0-0.9); MONOCYTES % (AUTO) 7.6 % (2-12); NEUTROPHILS # (AUTO) 9.4 X10'3 (1.8-7.7); NEUTROPHILS % (AUTO) 87.8 % (42-75); PLATELET COUNT 220 X10'3 (140-440); RED BLOOD COUNT 4.26 X10'6 (4.70-6.10); RED CELL DISTRIBUTION WIDTH 13.8 % (11.5-14.5); WHITE BLOOD COUNT 10.7 X10'3 (4.5-11.0)
[2023-08-21] MEDS ORDERED: neomycin/bacitracin/polymyxin B/HC top. ointment 15gm TP SCH (08:00)
[2023-08-21 08:09] LABS: ALANINE AMINOTRANSFERASE 17 U/L (12-78); ALBUMIN/GLOBULIN RATIO 0.9 (1.1-1.5); ALKALINE PHOSPHATASE 124 IU/L (46-116); ANION GAP 3 (8-16); ASPARTATE AMINO TRANSFERASE 16 U/L (10-37); BILIRUBIN,TOTAL 0.4 MG/DL (0.1-1.0); BLOOD UREA NITROGEN 43 MG/DL (7-18); BUN/CREATININE RATIO 45.3 (10.0-20.0); CALCIUM 8.4 MG/DL (8.5-10.1); CHLORIDE 105 MMOL/L (99-107); CREATININE 0.95 MG/DL (0.60-1.10); GLUCOSE 198 MG/DL (70-104); MAGNESIUM 2.6 MG/DL (1.5-2.4); POTASSIUM 4.4 MMOL/L (3.5-5.1); SODIUM 145 MMOL/L (135-145); TOTAL CARBON DIOXIDE 36.7 MMOL/L (24-32); TOTAL PROTEIN 6.5 G/DL (6.4-8.2); eCRCL 62 ML/MIN; eGFR 75 ML/MIN
[2023-08-21] MEDS: methylPREDNISolone sod succ/PF 40mg inj. IV SCH (16:41)
[2023-08-21] MEDS: ROPINIRole 1mg tablet JT SCH (22:33)
[2023-08-22] VITALS (9 sets, daily range): BP systolic 72–113; BP diastolic 58–78; PULSE 61–92; RESP 14–21; TEMP 97.3–98; O2SAT 88–98
[2023-08-22] MEDS: insulin regular, human U-100 3ml vial - multi-dose SQ SCH (01:57)
[2023-08-22 07:22] LABS: BASOPHILS % (AUTO) 0.1 % (0-1); EOSINOPHILS % (AUTO) 0 % (0-6); HEMATOCRIT 40.9 % (42.0-52.0); HEMOGLOBIN 13.9 g/dl (14.0-17.9); LYMPHOCYTES # (AUTO) 0.5 X10'3 (1.1-4.8); LYMPHOCYTES % (AUTO) 5.2 % (21-51); MEAN CORPUSCULAR HEMOGLOBIN 32.7 PG (27.0-31.0); MEAN CORPUSCULAR VOLUME 96.3 FL (78-98); MONOCYTES # (AUTO) 0.8 X10'3 (0-0.9); MONOCYTES % (AUTO) 7.5 % (2-12); NEUTROPHILS # (AUTO) 9.2 X10'3 (1.8-7.7); NEUTROPHILS % (AUTO) 87.2 % (42-75); PLATELET COUNT 216 X10'3 (140-440); RED BLOOD COUNT 4.25 X10'6 (4.70-6.10); RED CELL DISTRIBUTION WIDTH 13.8 % (11.5-14.5); WHITE BLOOD COUNT 10.6 X10'3 (4.5-11.0)
[2023-08-22 07:48] LABS: ALANINE AMINOTRANSFERASE 30 U/L (12-78); ALBUMIN/GLOBULIN RATIO 0.9 (1.1-1.5); ALKALINE PHOSPHATASE 122 IU/L (46-116); ANION GAP 5 (8-16); ASPARTATE AMINO TRANSFERASE 22 U/L (10-37); BILIRUBIN,TOTAL 0.4 MG/DL (0.1-1.0); BLOOD UREA NITROGEN 42 MG/DL (7-18); BUN/CREATININE RATIO 49.4 (10.0-20.0); CALCIUM 8.3 MG/DL (8.5-10.1); CHLORIDE 108 MMOL/L (99-107); CREATININE 0.85 MG/DL (0.60-1.10); GLUCOSE 131 MG/DL (70-104); POTASSIUM 4.7 MMOL/L (3.5-5.1); PREALBUMIN 24.1 MG/DL (19-36); SODIUM 147 MMOL/L (135-145); TOTAL CARBON DIOXIDE 34.4 MMOL/L (24-32); TOTAL PROTEIN 6.4 G/DL (6.4-8.2); eCRCL 69 ML/MIN; eGFR 85 ML/MIN
[2023-08-22] MEDS: dextrose 5%-water 1,000 ML IV SCH (11:56)
[2023-08-22] MEDS: HYDROmorphone inj. 0.5 MG/0.5 ML DISP.SYRIN IV PRN (15:33)
[2023-08-22] MEDS: methylPREDNISolone sod succ/PF 40mg inj. IV SCH (20:00)
[2023-08-22] MEDS: HYDROmorphone inj. 0.5 MG/0.5 ML DISP.SYRIN IV ONE (23:38)
[2023-08-22] MEDS: diatr meglu/diatrizoate 30ml oral sol.-(3 dose) bottle PO SCH (23:38)
[2023-08-23] VITALS (9 sets, daily range): BP systolic 96–115; BP diastolic 63–74; PULSE 80–111; RESP 14–20; TEMP 97.6–98.4; O2SAT 91–98
[2023-08-23] MEDS: apixaban 2.5mg tablet JT SCH (19:04)
[2023-08-23] MEDS: dextrose 5%-water 1,000 ML IV SCH (19:51)
[2023-08-24] VITALS (9 sets, daily range): BP systolic 98–131; BP diastolic 61–84; PULSE 61–99; RESP 13–22; TEMP 97.1–98.3; O2SAT 95–98
[2023-08-24 06:24] LABS: BASOPHILS % (AUTO) 0.2 % (0-1); EOSINOPHILS % (AUTO) 0.1 % (0-6); HEMATOCRIT 44.7 % (42.0-52.0); HEMOGLOBIN 15.2 g/dl (14.0-17.9); LYMPHOCYTES # (AUTO) 1.4 X10'3 (1.1-4.8); LYMPHOCYTES % (AUTO) 11.6 % (21-51); MEAN CORPUSCULAR HEMOGLOBIN 32.5 PG (27.0-31.0); MEAN CORPUSCULAR HGB CONC 33.9 g/dL (33.0-36.5); MEAN CORPUSCULAR VOLUME 95.7 FL (78-98); MEAN PLATELET VOLUME 7.9 FL (7.4-10.4); MONOCYTES # (AUTO) 0.8 X10'3 (0-0.9); NEUTROPHILS # (AUTO) 9.6 X10'3 (1.8-7.7); NEUTROPHILS % (AUTO) 81.1 % (42-75); PLATELET COUNT 209 X10'3 (140-440); RED BLOOD COUNT 4.67 X10'6 (4.70-6.10); RED CELL DISTRIBUTION WIDTH 13.4 % (11.5-14.5); WHITE BLOOD COUNT 11.8 X10'3 (4.5-11.0)
[2023-08-24 06:45] LABS: ALANINE AMINOTRANSFERASE 22 U/L (12-78); ALBUMIN 2.9 G/DL (3.4-5.0); ALBUMIN/GLOBULIN RATIO 0.8 (1.1-1.5); ALKALINE PHOSPHATASE 113 IU/L (46-116); ANION GAP 5 (8-16); ASPARTATE AMINO TRANSFERASE 17 U/L (10-37); BILIRUBIN,TOTAL 1.1 MG/DL (0.1-1.0); BLOOD UREA NITROGEN 33 MG/DL (7-18); BUN/CREATININE RATIO 39.3 (10.0-20.0); CALCIUM 8.5 MG/DL (8.5-10.1); CHLORIDE 104 MMOL/L (99-107); CREATININE 0.84 MG/DL (0.60-1.10); GLUCOSE 133 MG/DL (70-104); POTASSIUM 4.4 MMOL/L (3.5-5.1); SODIUM 142 MMOL/L (135-145); TOTAL CARBON DIOXIDE 33.5 MMOL/L (24-32); TOTAL PROTEIN 6.6 G/DL (6.4-8.2); eCRCL 70 ML/MIN; eGFR 86 ML/MIN
[2023-08-24] MEDS: pantoprazole 40 MG vial IV SCH (07:53)
[2023-08-24] MEDS: bisacodyl 10mg suppository rectal RC ONE (07:58)
[2023-08-24] MEDS: mag hydrox/Alum hydrox/simeth 30ml oral suspension PO PRN (17:09)
[2023-08-24] MEDS: mineral oil 133ml enema RC PRN (17:13)
[2023-08-24] MEDS: CefTRIAXone/D5W-Rocephin 1gm 50 ML IV SCH (22:48)
[2023-08-25] VITALS (10 sets, daily range): BP systolic 86–115; BP diastolic 59–67; PULSE 63–105; RESP 16–20; TEMP 96.7–98.6; O2SAT 63–97
[2023-08-25 07:22] LABS: BASOPHILS % (AUTO) 0.1 % (0-1); EOSINOPHILS % (AUTO) 0.1 % (0-6); HEMATOCRIT 43.7 % (42.0-52.0); HEMOGLOBIN 14.7 g/dl (14.0-17.9); LYMPHOCYTES # (AUTO) 0.9 X10'3 (1.1-4.8); LYMPHOCYTES % (AUTO) 5.9 % (21-51); MEAN CORPUSCULAR HEMOGLOBIN 31.9 PG (27.0-31.0); MEAN CORPUSCULAR HGB CONC 33.7 g/dL (33.0-36.5); MEAN CORPUSCULAR VOLUME 94.9 FL (78-98); MEAN PLATELET VOLUME 8.6 FL (7.4-10.4); MONOCYTES # (AUTO) 1.3 X10'3 (0-0.9); MONOCYTES % (AUTO) 8.4 % (2-12); NEUTROPHILS # (AUTO) 12.7 X10'3 (1.8-7.7); NEUTROPHILS % (AUTO) 85.5 % (42-75); PLATELET COUNT 202 X10'3 (140-440); RED BLOOD COUNT 4.61 X10'6 (4.70-6.10); RED CELL DISTRIBUTION WIDTH 13.3 % (11.5-14.5); WHITE BLOOD COUNT 14.8 X10'3 (4.5-11.0)
[2023-08-25 07:26] LABS: ALANINE AMINOTRANSFERASE 42 U/L (12-78); ALBUMIN 2.5 G/DL (3.4-5.0); ALBUMIN/GLOBULIN RATIO 0.7 (1.1-1.5); ALKALINE PHOSPHATASE 115 IU/L (46-116); ANION GAP 8 (8-16); ASPARTATE AMINO TRANSFERASE 28 U/L (10-37); BILIRUBIN,TOTAL 0.7 MG/DL (0.1-1.0); BLOOD UREA NITROGEN 37 MG/DL (7-18); BUN/CREATININE RATIO 44.6 (10.0-20.0); CALCIUM 7.7 MG/DL (8.5-10.1); CHLORIDE 100 MMOL/L (99-107); CREATININE 0.83 MG/DL (0.60-1.10); GLUCOSE 178 MG/DL (70-104); POTASSIUM 4.4 MMOL/L (3.5-5.1); SODIUM 136 MMOL/L (135-145); TOTAL CARBON DIOXIDE 28.5 MMOL/L (24-32); TOTAL PROTEIN 6.1 G/DL (6.4-8.2); eCRCL 71 ML/MIN; eGFR 88 ML/MIN
[2023-08-26] VITALS (11 sets, daily range): BP systolic 88–100; BP diastolic 52–71; PULSE 80–108; RESP 16–20; TEMP 97.3–98.6; O2SAT 96–100
[2023-08-26 06:42] LABS: BASOPHILS # (AUTO) 0.2 X10'3 (0-0.2); BASOPHILS % (AUTO) 1.4 % (0-1); EOSINOPHILS % (AUTO) 0.1 % (0-6); HEMATOCRIT 40.8 % (42.0-52.0); HEMOGLOBIN 13.8 g/dl (14.0-17.9); LYMPHOCYTES # (AUTO) 0.8 X10'3 (1.1-4.8); LYMPHOCYTES % (AUTO) 5.7 % (21-51); MEAN CORPUSCULAR HGB CONC 33.8 g/dL (33.0-36.5); MEAN CORPUSCULAR VOLUME 94.7 FL (78-98); MEAN PLATELET VOLUME 8.1 FL (7.4-10.4); MONOCYTES # (AUTO) 1.2 X10'3 (0-0.9); MONOCYTES % (AUTO) 8.4 % (2-12); NEUTROPHILS # (AUTO) 12.1 X10'3 (1.8-7.7); NEUTROPHILS % (AUTO) 84.4 % (42-75); PLATELET COUNT 174 X10'3 (140-440); RED BLOOD COUNT 4.31 X10'6 (4.70-6.10); WHITE BLOOD COUNT 14.3 X10'3 (4.5-11.0)
[2023-08-26 07:07] LABS: ALANINE AMINOTRANSFERASE 32 U/L (12-78); ALBUMIN 2.4 G/DL (3.4-5.0); ALBUMIN/GLOBULIN RATIO 0.7 (1.1-1.5); ALKALINE PHOSPHATASE 129 IU/L (46-116); ANION GAP 6 (8-16); ASPARTATE AMINO TRANSFERASE 15 U/L (10-37); BILIRUBIN,TOTAL 0.4 MG/DL (0.1-1.0); BLOOD UREA NITROGEN 37 MG/DL (7-18); BUN/CREATININE RATIO 42.5 (10.0-20.0); CALCIUM 7.5 MG/DL (8.5-10.1); CHLORIDE 101 MMOL/L (99-107); CREATININE 0.87 MG/DL (0.60-1.10); GLUCOSE 106 MG/DL (70-104); POTASSIUM 4.2 MMOL/L (3.5-5.1); PREALBUMIN 22.8 MG/DL (19-36); SODIUM 138 MMOL/L (135-145); TOTAL CARBON DIOXIDE 30.7 MMOL/L (24-32); TOTAL PROTEIN 5.7 G/DL (6.4-8.2); eCRCL 68 ML/MIN; eGFR 83 ML/MIN
[2023-08-26] MEDS: dextrose 50%-water 50ml dispensing syringe IV PRN (08:15)
[2023-08-26 09:30] LABS: PLATELET ESTIMATE NORMAL; TOTAL CELLS COUNTED 100
[2023-08-27] VITALS (13 sets, daily range): BP systolic 91–111; BP diastolic 56–78; PULSE 74–104; RESP 16–20; TEMP 97.3–98.2; O2SAT 95–99
[2023-08-27 08:00] LABS: BASOPHILS % (AUTO) 0.1 % (0-1); EOSINOPHILS % (AUTO) 0.1 % (0-6); HEMATOCRIT 40.7 % (42.0-52.0); HEMOGLOBIN 13.7 g/dl (14.0-17.9); LYMPHOCYTES % (AUTO) 6.5 % (21-51); MEAN CORPUSCULAR HGB CONC 33.7 g/dL (33.0-36.5); MEAN PLATELET VOLUME 8.5 FL (7.4-10.4); MONOCYTES # (AUTO) 1.4 X10'3 (0-0.9); MONOCYTES % (AUTO) 9.1 % (2-12); NEUTROPHILS # (AUTO) 12.7 X10'3 (1.8-7.7); NEUTROPHILS % (AUTO) 84.2 % (42-75); PLATELET COUNT 184 X10'3 (140-440); RED BLOOD COUNT 4.29 X10'6 (4.70-6.10); RED CELL DISTRIBUTION WIDTH 13.1 % (11.5-14.5)
[2023-08-27] MEDS: dextrose 50%-water 50ml dispensing syringe IV PRN (08:57)
[2023-08-27 09:19] LABS: ALANINE AMINOTRANSFERASE 25 U/L (12-78); ALBUMIN 2.3 G/DL (3.4-5.0); ALBUMIN/GLOBULIN RATIO 0.7 (1.1-1.5); ALKALINE PHOSPHATASE 124 IU/L (46-116); ANION GAP 6 (8-16); ASPARTATE AMINO TRANSFERASE 14 U/L (10-37); BILIRUBIN,TOTAL 0.3 MG/DL (0.1-1.0); BLOOD UREA NITROGEN 36 MG/DL (7-18); BUN/CREATININE RATIO 47.4 (10.0-20.0); CALCIUM 7.7 MG/DL (8.5-10.1); CHLORIDE 101 MMOL/L (99-107); CREATININE 0.76 MG/DL (0.60-1.10); GLUCOSE 86 MG/DL (70-104); POTASSIUM 3.9 MMOL/L (3.5-5.1); SODIUM 138 MMOL/L (135-145); TOTAL CARBON DIOXIDE 31.4 MMOL/L (24-32); TOTAL PROTEIN 5.4 G/DL (6.4-8.2); eCRCL 77 ML/MIN; eGFR > 90 ML/MIN
[2023-08-28] VITALS (12 sets, daily range): BP systolic 92–115; BP diastolic 56–70; PULSE 71–90; RESP 15–24; TEMP 97.8–98.6; O2SAT 94–99
[2023-08-28 06:31] LABS: BASOPHILS # (AUTO) 0.3 X10'3 (0-0.2); BASOPHILS % (AUTO) 1.9 % (0-1); EOSINOPHILS % (AUTO) 0 % (0-6); HEMATOCRIT 40.3 % (42.0-52.0); HEMOGLOBIN 13.6 g/dl (14.0-17.9); LYMPHOCYTES # (AUTO) 0.3 X10'3 (1.1-4.8); MEAN CORPUSCULAR HEMOGLOBIN 32.1 PG (27.0-31.0); MEAN CORPUSCULAR HGB CONC 33.8 g/dL (33.0-36.5); MEAN CORPUSCULAR VOLUME 94.9 FL (78-98); MEAN PLATELET VOLUME 8.8 FL (7.4-10.4); MONOCYTES # (AUTO) 0.9 X10'3 (0-0.9); MONOCYTES % (AUTO) 5.5 % (2-12); NEUTROPHILS # (AUTO) 14.7 X10'3 (1.8-7.7); NEUTROPHILS % (AUTO) 90.6 % (42-75); PLATELET COUNT 183 X10'3 (140-440); RED BLOOD COUNT 4.24 X10'6 (4.70-6.10); RED CELL DISTRIBUTION WIDTH 13.3 % (11.5-14.5); WHITE BLOOD COUNT 16.3 X10'3 (4.5-11.0)
[2023-08-28 06:58] LABS: ALANINE AMINOTRANSFERASE 23 U/L (12-78); ALBUMIN 2.3 G/DL (3.4-5.0); ALBUMIN/GLOBULIN RATIO 0.7 (1.1-1.5); ALKALINE PHOSPHATASE 133 IU/L (46-116); ANION GAP 6 (8-16); ASPARTATE AMINO TRANSFERASE 13 U/L (10-37); BILIRUBIN,TOTAL 0.3 MG/DL (0.1-1.0); BLOOD UREA NITROGEN 36 MG/DL (7-18); BUN/CREATININE RATIO 39.1 (10.0-20.0); CALCIUM 7.3 MG/DL (8.5-10.1); CHLORIDE 100 MMOL/L (99-107); CREATININE 0.92 MG/DL (0.60-1.10); GLUCOSE 209 MG/DL (70-104); POTASSIUM 4.2 MMOL/L (3.5-5.1); SODIUM 135 MMOL/L (135-145); TOTAL CARBON DIOXIDE 28.9 MMOL/L (24-32); TOTAL PROTEIN 5.4 G/DL (6.4-8.2); eCRCL 64 ML/MIN; eGFR 78 ML/MIN
[2023-08-28] MEDS: normal saline 1000ml 1,000 ML IV SCH (18:50)
[2023-08-29] VITALS (11 sets, daily range): BP systolic 97–124; BP diastolic 54–70; PULSE 54–77; RESP 16–20; TEMP 97.3–98.9; O2SAT 93–98
[2023-08-29] MEDS: CefTRIAXone/D5W-Rocephin 1gm 50 ML IV ONE (21:31)
[2023-08-30] VITALS (10 sets, daily range): BP systolic 104–119; BP diastolic 56–65; PULSE 58–92; RESP 14–23; TEMP 97.7–98.2; O2SAT 91–99
[2023-08-30] MEDS: mag hydrox/Alum hydrox/simeth 30ml oral suspension PO ONE (13:23)
[2023-08-30] MEDS: fluconazole 100mg tablet PO SCH (13:26)
[2023-08-31] VITALS (9 sets, daily range): BP systolic 103–114; BP diastolic 57–68; PULSE 56–91; RESP 12–18; TEMP 97.6–98.2; O2SAT 94–97
[2023-08-31 12:02] LABS: BASOPHILS % (AUTO) 0.2 % (0-1); EOSINOPHILS % (AUTO) 0.2 % (0-6); HEMATOCRIT 38.3 % (42.0-52.0); HEMOGLOBIN 12.9 g/dl (14.0-17.9); LYMPHOCYTES % (AUTO) 6.4 % (21-51); MEAN CORPUSCULAR HEMOGLOBIN 32.1 PG (27.0-31.0); MEAN CORPUSCULAR HGB CONC 33.6 g/dL (33.0-36.5); MEAN CORPUSCULAR VOLUME 95.7 FL (78-98); MONOCYTES # (AUTO) 0.7 X10'3 (0-0.9); MONOCYTES % (AUTO) 4.4 % (2-12); NEUTROPHILS # (AUTO) 13.7 X10'3 (1.8-7.7); NEUTROPHILS % (AUTO) 88.8 % (42-75); PLATELET COUNT 177 X10'3 (140-440); RED BLOOD COUNT 4.01 X10'6 (4.70-6.10); RED CELL DISTRIBUTION WIDTH 13.1 % (11.5-14.5); WHITE BLOOD COUNT 15.4 X10'3 (4.5-11.0)
[2023-08-31 12:16] LABS: ALANINE AMINOTRANSFERASE 27 U/L (12-78); ALBUMIN 2.1 G/DL (3.4-5.0); ALBUMIN/GLOBULIN RATIO 0.7 (1.1-1.5); ALKALINE PHOSPHATASE 82 IU/L (46-116); ANION GAP 4 (8-16); ASPARTATE AMINO TRANSFERASE 14 U/L (10-37); BILIRUBIN,TOTAL 0.4 MG/DL (0.1-1.0); BLOOD UREA NITROGEN 28 MG/DL (7-18); CHLORIDE 109 MMOL/L (99-107); GLUCOSE 129 MG/DL (70-104); POTASSIUM 4.2 MMOL/L (3.5-5.1); SODIUM 143 MMOL/L (135-145); eCRCL 74 ML/MIN; eGFR > 90 ML/MIN
[2023-09-01] VITALS (9 sets, daily range): BP systolic 75–117; BP diastolic 49–67; PULSE 60–95; RESP 16–26; TEMP 97.3–98.9; O2SAT 70–96
[2023-09-01] MEDS: ROPINIRole 1mg tablet JT SCH (09:35)
[2023-09-01] MEDS: methylPREDNISolone sod succ/PF 40mg inj. IV SCH (09:35)
[2023-09-01 10:22] LABS: BASOPHILS % (AUTO) 0 % (0-1); EOSINOPHILS % (AUTO) 0 % (0-6); HEMATOCRIT 38.2 % (42.0-52.0); HEMOGLOBIN 12.9 g/dl (14.0-17.9); LYMPHOCYTES # (AUTO) 1.1 X10'3 (1.1-4.8); LYMPHOCYTES % (AUTO) 6.1 % (21-51); MEAN CORPUSCULAR HEMOGLOBIN 32.3 PG (27.0-31.0); MEAN CORPUSCULAR HGB CONC 33.9 g/dL (33.0-36.5); MEAN CORPUSCULAR VOLUME 95.3 FL (78-98); MONOCYTES # (AUTO) 1.1 X10'3 (0-0.9); MONOCYTES % (AUTO) 6.6 % (2-12); NEUTROPHILS # (AUTO) 15.1 X10'3 (1.8-7.7); NEUTROPHILS % (AUTO) 87.3 % (42-75); PLATELET COUNT 179 X10'3 (140-440); RED BLOOD COUNT 4.01 X10'6 (4.70-6.10); RED CELL DISTRIBUTION WIDTH 13.3 % (11.5-14.5); WHITE BLOOD COUNT 17.3 X10'3 (4.5-11.0)
[2023-09-01 13:07] LABS: ALANINE AMINOTRANSFERASE 29 U/L (12-78); ALBUMIN 2.3 G/DL (3.4-5.0); ALBUMIN/GLOBULIN RATIO 0.8 (1.1-1.5); ALKALINE PHOSPHATASE 93 IU/L (46-116); ANION GAP 3 (8-16); ASPARTATE AMINO TRANSFERASE 13 U/L (10-37); BILIRUBIN,TOTAL 0.3 MG/DL (0.1-1.0); BLOOD UREA NITROGEN 29 MG/DL (7-18); BUN/CREATININE RATIO 37.7 (10.0-20.0); CALCIUM 8.1 MG/DL (8.5-10.1); CHLORIDE 109 MMOL/L (99-107); CREATININE 0.77 MG/DL (0.60-1.10); GLUCOSE 112 MG/DL (70-104); POTASSIUM 4.1 MMOL/L (3.5-5.1); SODIUM 144 MMOL/L (135-145); TOTAL CARBON DIOXIDE 31.7 MMOL/L (24-32); TOTAL PROTEIN 5.1 G/DL (6.4-8.2); eCRCL 76 ML/MIN; eGFR > 90 ML/MIN
[2023-09-01] MEDS: HYDROcodone/acetaminophen 7.5MG/325MG per 15ml UD CUP JT PRN (23:06)
[2023-09-02] VITALS (9 sets, daily range): BP systolic 91–108; BP diastolic 53–68; PULSE 71–88; RESP 16–22; TEMP 97.6–99.1; O2SAT 94–98
[2023-09-02] MEDS: HYDROcodone/acetaminophen 7.5MG/325MG per 15ml UD CUP JT PRN (12:32)
[2023-09-03] VITALS (10 sets, daily range): BP systolic 94–111; BP diastolic 60–72; PULSE 73–92; RESP 18–24; TEMP 97.1–99.2; O2SAT 93–97
[2023-09-03 07:04] LABS: BASOPHILS % (AUTO) 0.1 % (0-1); EOSINOPHILS # (AUTO) 0.3 X10'3 (0-0.9); EOSINOPHILS % (AUTO) 1.8 % (0-6); HEMATOCRIT 39.5 % (42.0-52.0); HEMOGLOBIN 13.3 g/dl (14.0-17.9); LYMPHOCYTES # (AUTO) 2.2 X10'3 (1.1-4.8); LYMPHOCYTES % (AUTO) 16.1 % (21-51); MEAN CORPUSCULAR HEMOGLOBIN 32.2 PG (27.0-31.0); MEAN CORPUSCULAR HGB CONC 33.7 g/dL (33.0-36.5); MEAN CORPUSCULAR VOLUME 95.4 FL (78-98); MONOCYTES # (AUTO) 0.9 X10'3 (0-0.9); MONOCYTES % (AUTO) 6.5 % (2-12); NEUTROPHILS # (AUTO) 10.4 X10'3 (1.8-7.7); NEUTROPHILS % (AUTO) 75.5 % (42-75); PLATELET COUNT 152 X10'3 (140-440); RED BLOOD COUNT 4.14 X10'6 (4.70-6.10); RED CELL DISTRIBUTION WIDTH 13.6 % (11.5-14.5); WHITE BLOOD COUNT 13.7 X10'3 (4.5-11.0)
[2023-09-03 07:30] LABS: ALANINE AMINOTRANSFERASE 23 U/L (12-78); ALBUMIN 2.3 G/DL (3.4-5.0); ALBUMIN/GLOBULIN RATIO 0.8 (1.1-1.5); ALKALINE PHOSPHATASE 100 IU/L (46-116); ANION GAP 3 (8-16); ASPARTATE AMINO TRANSFERASE 17 U/L (10-37); BILIRUBIN,TOTAL 0.4 MG/DL (0.1-1.0); BLOOD UREA NITROGEN 27 MG/DL (7-18); BUN/CREATININE RATIO 38.6 (10.0-20.0); CALCIUM 7.7 MG/DL (8.5-10.1); CHLORIDE 104 MMOL/L (99-107); GLUCOSE 84 MG/DL (70-104); POTASSIUM 4.7 MMOL/L (3.5-5.1); SODIUM 138 MMOL/L (135-145); TOTAL CARBON DIOXIDE 31.3 MMOL/L (24-32); TOTAL PROTEIN 5.2 G/DL (6.4-8.2); eCRCL 84 ML/MIN; eGFR > 90 ML/MIN
[2023-09-03] MEDS: metoprolol tartrate 12.5mg (1/2 tablet) JT SCH (11:10)
[2023-09-04 02:00] VITALS: BP 98/54; PULSE 103; RESP 22; TEMP 98.6; O2SAT 95
[2023-09-04 06:00] VITALS: BP 96/58; PULSE 82; RESP 27; TEMP 96.2; O2SAT 97
[2023-09-04 09:15] VITALS: RESP 20
== END 2023-09-04 09:50 | DRG 393 ==
LOC: ER 11:26 → ED HOLD 13:31 → PCU 3S 15:26
PROVIDERS: ADMIT Internal Medicine; ATTEND Internal Medicine
PROC: B32T1ZZ Computerized Tomography (CT Scan) of Left Pulmonary Artery using Low Osmolar Contrast (ICD-10-PCS; principal; 2023-08-19)
PROC: B3201ZZ Computerized Tomography (CT Scan) of Thoracic Aorta using Low Osmolar Contrast (ICD-10-PCS; 2023-08-19)
PROC: B32S1ZZ Computerized Tomography (CT Scan) of Right Pulmonary Artery using Low Osmolar Contrast (ICD-10-PCS; 2023-08-19)
DX: K94.13 Enterostomy malfunction (principal); J96.00 Acute respiratory failure, unspecified whether with hypoxia or hypercapnia; J44.1 Chronic obstructive pulmonary disease with (acute) exacerbation; E87.0 Hyperosmolality and hypernatremia; I48.92 Unspecified atrial flutter; K56.41 Fecal impaction; R73.9 Hyperglycemia, unspecified; Z20.822 Contact with and (suspected) exposure to COVID-19; I50.9 Heart failure, unspecified; Y83.8 Other surgical procedures as the cause of abnormal reaction of the patient, or of later complication, without mention of misadventure at the time of the procedure; Y82.8 Other medical devices associated with adverse incidents; I48.91 Unspecified atrial fibrillation; Z96.611 Presence of right artificial shoulder joint; Z96.612 Presence of left artificial shoulder joint; Z87.891 Personal history of nicotine dependence; Z79.899 Other long term (current) drug therapy; Z88.8 Allergy status to other drugs, medicaments and biological substances; Y92.89 Other specified places as the place of occurrence of the external cause
CPT/HCPCS: 36415; 36600; 71045; 71275; 74018; 74176; 80048; 80053; 80076; 82803; 82948; 83036; 83735; 83880; 84132; 84134; 84145; 84484; 85007; 85018; 85025; 87081; 87811; 93005; 93306; 94640; 94760; 97110; 97116; 97161; 97530; 97535; 99285; A4349; A4371; A4421; A4615; A4649; A6212; A6213; A6250; A6253; A6258; A6402; A6449; A6590; C9113; G0378; J0696; J1170; J1815; J1940; J2270; J2920; J2930; J3490; J7030; J7040; J7070; Q9963; Q9967